=== PATIENT | male | born 1960 | race Caucasian/White ===

== ENCOUNTER 2021-09-28 20:09 | Inpatient (IN) | payer MEDICAID ==
[~2021-09-28] VITALS: Ht 180.3 cm; Wt 86.1 kg
[2021-09-28] MEDS ORDERED: normal saline 1000ml 1,000 ML IV ONE (20:40)
--- NOTE | 2021-09-28 20:42 | NUR ---
patient to ct scan
[2021-09-28 21:02] LABS: BASOPHILS % (AUTO) 0.7 % (0-1); EOSINOPHILS # (AUTO) 0.1 X10'3 (0-0.9); EOSINOPHILS % (AUTO) 2.7 % (0-6); HEMATOCRIT 34.2 % (42.0-52.0); HEMOGLOBIN 11.6 g/dl (14.0-17.9); LYMPHOCYTES # (AUTO) 1.9 X10'3 (1.1-4.8); LYMPHOCYTES % (AUTO) 38.3 % (21-51); MEAN CORPUSCULAR HEMOGLOBIN 30.4 PG (27.0-31.0); MEAN CORPUSCULAR HGB CONC 33.9 g/dL (33.0-36.5); MEAN CORPUSCULAR VOLUME 89.8 FL (78-98); MEAN PLATELET VOLUME 8.4 FL (7.4-10.4); MONOCYTES # (AUTO) 0.4 X10'3 (0-0.9); MONOCYTES % (AUTO) 7.8 % (2-12); NEUTROPHILS # (AUTO) 2.4 X10'3 (1.8-7.7); NEUTROPHILS % (AUTO) 50.5 % (42-75); PLATELET COUNT 142 X10'3 (140-440); RED CELL DISTRIBUTION WIDTH 15.5 % (11.5-14.5); WHITE BLOOD COUNT 4.8 X10'3 (4.5-11.0)
--- NOTE | 2021-09-28 21:06 | NUR ---
pt aox 1. pt easily follows simple commands but continues to sit up in bed, confused and unable to state birthday, event, day/time. pt reoriented and given blanket.
[2021-09-28 21:24] LABS: ALANINE AMINOTRANSFERASE 18 U/L (12-78); ALBUMIN 3.6 G/DL (3.4-5.0); ALBUMIN/GLOBULIN RATIO 1.4 (1.1-1.5); ALKALINE PHOSPHATASE 53 IU/L (46-116); ANION GAP 11 (8-16); ASPARTATE AMINO TRANSFERASE 16 U/L (10-37); BILIRUBIN,TOTAL 0.6 MG/DL (0.1-1.0); BLOOD UREA NITROGEN 15 MG/DL (7-18); BUN/CREATININE RATIO 17.6 (5.4-32.0); CALCIUM 8.5 MG/DL (8.5-10.1); CHLORIDE 105 MMOL/L (99-107); CREATININE 0.85 MG/DL (0.60-1.10); GLUCOSE 75 MG/DL (70-104); POTASSIUM 3.7 MMOL/L (3.5-5.1); SODIUM 139 MMOL/L (135-145); TOTAL CARBON DIOXIDE 22.6 MMOL/L (24-32); TOTAL PROTEIN 6.2 G/DL (6.4-8.2); eGFR > 90 ML/MIN
[2021-09-28 21:26] LABS: ETHANOL < 0.010 GM/DL (0.0-0.010)
--- NOTE | 2021-09-28 22:36 | NUR ---
PATIENT WAS TRANSFERRED TO OVERFLOW ,REPORT GIVEN TO THE NURSE BY SEISMIC PROSPECTING OBSERVER HELPER, PATIENT IN STABLE CONDITION AT THIS TIME
[2021-09-28] MEDS ORDERED: BENZ2TAB7 PO (23:10)
[2021-09-28] MEDS ORDERED: SERT-434 PO (23:10)
[2021-09-28] MEDS ORDERED: CLON0.1T2 PO (23:10)
[2021-09-28] MEDS ORDERED: HALO5TAB PO (23:10)
[2021-09-28] MEDS ORDERED: LAMO100T PO (23:10)
[2021-09-28] MEDS ORDERED: PROP40TA72 PO (23:10)
--- NOTE | 2021-09-28 23:14 | NUR ---
PATIENT ARRIVED ON THE UNIT IN WHEELCHAIR. PATIENT IS IN NO OBVIOUS DISTRESS. PATIENT IS BREATHING SPONTANOUSLY ON ROOM AIR. PATIENT APPEARS TO BE CONFUSED , HOWEVER PATIENT DENIES HAVING ANY SUICIDAL IDEATION THIS TIME
--- NOTE | 2021-09-29 04:10 | NUR ---
PATIENT UP AND ABOUT UNIT. HE APPEARS TO BE CONFUSED. PATIENT IS UNABLE TO GIVE US URINE DUE TO THIS MENTAL STATUS.
--- NOTE | 2021-09-29 05:53 | NUR ---
PATIENT IS IN BED RESTING IN NO OBVIOUS DISTRESS. OBSERVATION ONGOING
--- NOTE | 2021-09-29 06:30 | NUR ---
PT. CARE ASSUMED FROM OFF GOING NURSE JENARO ZAPIEN. PT. VISIBLE ON THE UNIT LYING IN BED NO DISTRESS NOTED. PT. PRESENTS CONFUSED AND REQUIRES REDIRECTING FROM STAFF. PT. ABLE TO FOLLOW SIMPLE INSTRUCTIONS. PT. SPEECH IS GARBLED AND VERY DIFFICULT TO UNDERSTAND. PT. ASSISTED TO A STANDING POSITION BY STAFF IN ATTEMPT TO OBTAIN URINE SAMPLE WITHOUT ANY SUCCESS. STAFF WILL CONTINUE TO MONITOR FOR SAFETY.
[2021-09-29] MEDS: benztropine 1mg tablet PO SCH ×2 (08:41→20:36)
[2021-09-29] MEDS: lamoTRIgine 100mg tablet PO SCH (08:41)
[2021-09-29] MEDS: sertraline 50mg tablet PO SCH ×2 (08:43→20:36)
[2021-09-29] MEDS: propranolol 40mg tablet PO SCH ×2 (09:58→20:36)
--- NOTE | 2021-09-29 11:45 | NUR ---
URINE FOR UA OBTAINED VIA STRIGHT CATH. SPECIMEN SENT TO THE LAB
[2021-09-29 11:57] LABS: CLARITY,URINE CLEAR (Clear); COLOR,URINE YELLOW (Yellow); GLUCOSE, URINE NEGATIVE (Neg); KETONES,URINE NEGATIVE (Neg); LEUKOCYTE ESTERASE ,URINE NEGATIVE (Neg); NITRITES, URINE NEGATIVE (Neg); OCCULT BLOOD,URINE NEGATIVE (Neg); PROTEIN,URINE NEGATIVE (Neg); UROBILINOGEN,URINE 0.2 E.U/dL (0.2-1.0)
[2021-09-29 11:59] LABS: UA COLLECTION TYPE CLN CATCH MIDSTREAM
[2021-09-29 12:00] LABS: URINE AMPHETAMINE SCREEN NEGATIVE (Neg); URINE BARBITUATE SCREEN NEGATIVE (Neg); URINE BENZODIAZEPINES SCREEN POSITIVE (Neg); URINE CANNABINOID SCREEN NEGATIVE (Neg); URINE COCAINE SCREEN NEGATIVE (Neg); URINE METHADONE SCREEN NEGATIVE (Neg); URINE OPIATE SCREEN NEGATIVE (Neg); URINE PHENCYCLIDINE SCREEN NEGATIVE (Neg)
--- NOTE | 2021-09-29 12:15 | NUR ---
SITTING ON EDGE OF BED EATING LUNCH.
--- NOTE | 2021-09-29 12:15 | NUR ---
PACKET FAXED TO [facility] [facility] FOR REVIEW.
--- NOTE | 2021-09-29 12:45 | NUR ---
PT. VISIBLE ON THE UNIT HAS PLACED HIMSELF ON ALL FOURS . PT. ON FLOOR PICKING AT THINGS ON THE FLOOR THAT ARE NOT THERE. PT. REQUIRES REDIRECTING
--- NOTE | 2021-09-29 13:09 | NUR ---
BREAKING PRIMARY NURSE AT [facility] EVAL AT BEDSIDE .
[2021-09-29] MEDS ORDERED: acetaminophen 325mg tablet PO PRN ×2 (16:40)
[2021-09-29] MEDS ORDERED: mag hydrox/Alum hydrox/simeth 30ml oral suspension PO PRN (16:40)
[2021-09-29] MEDS ORDERED: loperamide 2mg capsule PO PRN (16:40)
--- NOTE | 2021-09-29 16:43 | NUR ---
PT. TRANSFERRED TO [facility]. PT. PERSONAL BELONGINGS AND ORIGINAL 5150 GIVEN TO TRANSPORTER. PT. ESCORTED OFF THE UNIT WITH SECURITY.
[2021-09-29 16:45] VITALS: BP 107/75
[2021-09-29] MEDS ORDERED: NICOTINE POLACRILEX 2 MG LOZENGE BC PRN (17:30)
--- NOTE | 2021-09-29 18:15 | NUR ---
ADMIT NOTE: Pt transferred from ER overflow to [facility] at 1645. He ambulated onto the unit accompanied by PCT and security. Pt is confused though cooperative. Pt showered with the assistance of RN Jim. Pt has a large, thick callous-like or corn-like area on his right lateral foot pad. Pt has an order for a wound consult Pt is on a 5150 for GD. He was brought in by EMS on 09/28/21. His neighbors called 911 after hearing concerning noises that sounded like pt fell down the stairs. Pt was found crawling around on all fours, disheveled with food and milk in the house. He was confused. Pt lives at [facility] alone. Pt has a rehabilitation case coordinator at [facility] named Megan who reported to [facility] that pt has a Hx of confusion that resolves with medication though pt gets confused as to how and when to take his medications. His meds were last filled on 09/20/21. He had Invega Sustenna 234 mg filled on 09/15/21 by a different provider. Uncertain whether or not there was a provider/medication change. Pt reports he just moved her recently in April of last year from the [facility]. Pt is edentulous and his mouth hangs open asymmetrically. Pt is only oriented to self. Pt was unable to participate in the [place] suicide risk assessment due to confusion. He was unable to process/understand to answer the questions. Per ER overflow RN report, pt was incontinent of urine last night. Pt is in a pull-up brief and may need prompts to use the bathroom. Pt has a Hx of schizophrenia.
[2021-09-29 19:00] VITALS: BP 122/84
[2021-09-29] MEDS: haloperidol 5mg tablet PO SCH (20:36)
[2021-09-29] MEDS ORDERED: cloNIDine 0.1 mg tablet PO SCH (21:00)
--- NOTE | 2021-09-29 21:00 | NUR ---
Nursing Progress Note: Legal hold: 5150 Client on Involuntary status for GD. Report received from RUPALI Velez with use of SBAR. Why are they here? ADMIT NOTE: Pt transferred from ER overflow to [facility] at 1645. He ambulated onto the unit accompanied by PCT and security. Pt is confused though cooperative. Pt showered with the assistance of RUPALI Fernandez. Pt has a large, thick callous-like or corn-like area on his right lateral foot pad. Pt has an order for a wound consult Pt is on a 5150 for GD. He was brought in by EMS on 09/28/21. His neighbors called 911 after hearing concerning noises that sounded like patient fell down the stairs. Pt was found crawling around on all fours, disheveled with food and milk in the house. He was confused. Pt lives at [facility] alone. Pt has a case finisher at [facility] named Megan who reported to [facility] that patient has a history of confusion that resolves with medication though patient gets confused as to how and when to take his medications. His meds were last filled on 09/20/21. He had Invega Sustenna 234 mg filled on 09/15/21 by a different provider. Uncertain whether or not there was a provider/medication change. Pt reports he just moved her recently in April of last year from the [facility]. Pt is edentulous and his mouth hangs open asymmetrically. Pt is only oriented to self. Pt was unable to participate in the [place] suicide risk assessment due to confusion. He was unable to process/understand to answer the questions. Per ER overflow RN report, patient was incontinent of urine last night. Pt is in a pull-up brief and may need prompts to use the bathroom. Pt has a history of schizophrenia. Assessment Patient was observed ambulating the hallway and in his room following shift change. He exhibits a blank stare with his mouth wide open .He looks disheveled. Patient answers direct questions only. He mumbles when he speaks and is confused. Patient responds in a sluggish manner but is able to accept direction. Patient continues to exhibit confusion at bedtime. He attempts to make another patients bed, he turns lights on and off in his room with a roommate present. On consult with the wind turbine installer we will attempt to move this patient to another room. S/I, H/I: Pt denies. He is confused. A/VH: None noted. Sleep: Will tally at 0500 hours. ADL's: Independent, requires prompting. Group attendance: No group on marketing support coordinator. Were meds taken: Yes, patient is medication compliant. Any med S/E: None reported or noted. Mental Status Exam Appearance: Disheveled looking order looking male wearing unit attire. Eye contact: Fair. Behavior: Confused, friendly. Speech: Quiet, mumbles, hard to understand. Mood: Patient looks relaxed, he ambulates in and out of room. Affect: Flat. Thought process: Confused. Thought Content: Poverty of thought. Insight: Poor. Judgment: Poor. Interventions PRN's used: Trazadone. Therapeutic interventions: 1:1 assessment, establishment of rapport, therapeutic conversation, active listening, medication administration/education/monitoring, behavior monitoring and intervention as needed; distraction, redirection, reality orientation, limiit setting, show of support, positive reinforcement, and Q 15 minute safety checks. Restraints/seclusion/emergency medication: Justification of Continued Inpatient Treatment: Pt is in need of crisis interruption and stabilization, with medication adjustment and monitoring in a safe and therapeutic environment. Pt is gravely disabled.
[2021-09-30 07:38] VITALS: BP 118/67
[2021-09-30 08:14] LABS: CHOL/HDL RATIO 5.7 (0.00-4.99); CHOLESTEROL 171 MG/DL (0-200); HDL CHOLESTEROL 30 MG/DL (35-60); LDL CHOLESTEROL 103 MG/DL (50-100); TRIGLYCERIDES 107 MG/DL (20-135)
[2021-09-30] MEDS: benztropine 1mg tablet PO SCH ×2 (08:15→21:06)
[2021-09-30] MEDS: propranolol 40mg tablet PO SCH ×2 (08:15→20:00)
[2021-09-30] MEDS: sertraline 50mg tablet PO SCH ×2 (08:15→21:07)
[2021-09-30] MEDS: lamoTRIgine 100mg tablet PO SCH (08:16)
[2021-09-30] MEDS: nicotine 14mg patch - 24hr TD SCH (08:17)
[2021-09-30 08:36] LABS: HEMOGLOBIN A1C 5.9 % (4.5-6.2)
--- NOTE | 2021-09-30 13:07 | NUR ---
Nursing Progress Note: Legal hold: 5150 Client on Involuntary status for GD. Report received from Jess ZAPIEN with use of SBAR. Why are they here? ADMIT NOTE: Pt transferred from ER overflow to [facility] at 1645. He ambulated onto the unit accompanied by PCT and security. Pt is confused though cooperative. Pt showered with the assistance of RN Jim. Pt has a large, thick callous-like or corn-like area on his right lateral foot pad. Pt has an order for a wound consult Pt is on a 5150 for GD. He was brought in by EMS on 09/28/21. His neighbors called 911 after hearing concerning noises that sounded like patient fell down the stairs. Pt was found crawling around on all fours, disheveled with food and milk in the house. He was confused. Pt lives at [facility] alone. Pt has a lining caser at [facility] named Megan who reported to [facility] that patient has a history of confusion that resolves with medication though patient gets confused as to how and when to take his medications. His meds were last filled on 09/20/21. He had Invega Sustenna 234 mg filled on 09/15/21 by a different provider. Uncertain whether or not there was a provider/medication change. Pt reports he just moved her recently in April of last year from the [facility]. Pt is edentulous and his mouth hangs open asymmetrically. Pt is only oriented to self. Pt was unable to participate in the [place] suicide risk assessment due to confusion. He was unable to process/understand to answer the questions. Per ER overflow RN report, patient was incontinent of urine last night. Pt is in a pull-up brief and may need prompts to use the bathroom. Pt has a history of schizophrenia. Assessment What they did today: Pt awake in his room. Pt continues to be confused and disoriented. Pt confused and tried to go out the alarmed, locked door x 3. Pt needing to be reminded where his door/room is. Pt follows verbal instructions, but his speech is disorganized and not related to any thing spoken to him. Pt assisted with ADL's and appears dishevled. S/I, H/I: Pt denies. He is confused. A/VH: None noted. Sleep: brief napping during the day. ADL's: Independent, requires prompting. Group attendance: No group on maintenance supervisor 2nd shift. Were meds taken: Yes, patient is medication compliant. Any med S/E: None reported or noted. Mental Status Exam Appearance: Disheveled looking order looking male wearing unit attire. Eye contact: Fair. Behavior: Confused, friendly. Speech: Quiet, mumbles, hard to understand. Mood: Patient looks relaxed, he ambulates in and out of room. Affect: Flat. Thought process: Confused. Thought Content: Poverty of thought. Insight: Poor. Judgment: Poor. Interventions PRN's used: Therapeutic interventions: 1:1 assessment, establishment of rapport, therapeutic conversation, active listening, medication administration/education/monitoring, behavior monitoring and intervention as needed; distraction, redirection, reality orientation, limiit setting, show of support, positive reinforcement, and Q 15 minute safety checks. Restraints/seclusion/emergency medication: Justification of Continued Inpatient Treatment: Pt is in need of crisis interruption and stabilization, with medication adjustment and monitoring in a safe and therapeutic environment. Pt is gravely disabled. Addendum: 09/30/21 at 1540 by Yassine Solorzano RN Pt seen by wound care earlier, see wound care note. Pt tried to urinate and ended up peeing all over the room and himself and needed staff to clean him up.
--- NOTE | 2021-09-30 13:45 | NUR ---
WOUND INFECTION EDUCATION PROVIDED BY WOUND CARE 1. Patient instructed to call their primary doctor, or go the ED immediately if any of the following symptoms occur: * Increased pain in wound * Increase in drainage from the wound * Redness in the skin surrounding the wound * Warmth in the skin surrounding the wound * Bleeding from the wound * Temperature of 101 or greater 2. If any of these occur while in the hospital tell a nurse immediately. Addendum: 09/30/21 at 1345 by Toshia Potter RN Amended: Links added.
[2021-09-30 19:00] VITALS: BP 80/60
--- NOTE | 2021-09-30 19:20 | NUR ---
The unit tech advised this insurance writer that the patient had a low blood pressure. On my evaluation patients sitting blood pressure is 84/60 with a pulse of 82. The patient was then placed in a standing position, his blood pressure decreased to 64/38, the pulse did not increase. Patient was pale, w/d, and dizzy with standing. The charge lpn will contact the hospitalist for IV bolus orders.
[2021-09-30] MEDS ORDERED: normal saline 1000ml 1,000 ML IV ONE ×2 (19:45→21:00)
[2021-09-30] MEDS: mineral oil/petrolatum, white cream 113gm jar TP SCH (20:00)
--- NOTE | 2021-09-30 20:00 | NUR ---
Patients Inderol held due to hypotension.
--- NOTE | 2021-09-30 20:09 | NUR ---
An IV NaCl was established. The patient is supine in bed. A one litre bolus is being administered via pressure bag. Vital signs will be re-evaluated after fluid bolus. Patient is resting quietly with warm blankets in place.
[2021-09-30] MEDS: FLUoxetine 10mg capsule PO SCH ×2 (20:25→21:07)
[2021-09-30] MEDS: haloperidol 5mg tablet PO SCH (21:07)
[2021-09-30 23:00] VITALS: BP 114/80
--- NOTE | 2021-09-30 23:00 | NUR ---
Two litres of NaCl were given IV. The IV was DC'd intact. The patient is now normotensive. Patient has retired to sleep. No labs ordered by Dr. Mcclain.
--- NOTE | 2021-10-01 01:22 | NUR ---
Nursing Progress Note: Legal hold: 5150 Client on Involuntary status for GD. Report received from RUPALI Velez with use of SBAR. Why patient is here: ADMIT NOTE: Pt transferred from ER overflow to [facility] at 1645. He ambulated onto the unit accompanied by PCT and security. Pt is confused though cooperative. Pt showered with the assistance of RUPALI Fernandez. Pt has a large, thick callous-like or corn-like area on his right lateral foot pad. Pt has an order for a wound consult Pt is on a 5150 for GD. He was brought in by EMS on 09/28/21. His neighbors called 911 after hearing concerning noises that sounded like patient fell down the stairs. Pt was found crawling around on all fours, disheveled with food and milk in the house. He was confused. Pt lives at [facility] alone. Pt has a test case developer at [facility] named Megan who reported to [facility] that patient has a history of confusion that resolves with medication though patient gets confused as to how and when to take his medications. His meds were last filled on 09/20/21. He had Invega Sustenna 234 mg filled on 09/15/21 by a different provider. Uncertain whether or not there was a provider/medication change. Pt reports he just moved her recently in April of last year from the [facility]. Pt is edentulous and his mouth hangs open asymmetrically. Pt is only oriented to self. Pt was unable to participate in the [place] suicide risk assessment due to confusion. He was unable to process/understand to answer the questions. Per ER overflow RN report, patient was incontinent of urine last night. Pt is in a pull-up brief and may need prompts to use the bathroom. Pt has a history of schizophrenia. Assessment What happened this shift: Patient is observed in the community room following shift change. Patient remains confused and disoriented. This is unchanged from his admit. When vital signs were taken the patient was documented to be hypotensive while sitting with a normal pulse rate. Upon standing the patient exhibits orthostatic hypotension with his B/P 69/38 his pulse in the 80's regardless of position. Dr. Mcclain the Hospitalist was contacted twice. Orders were for fluid IV bolus of Nacl to a total of two liters. Following the IV fluid bolus this patient became normotensive and his IV was discontinued. The patient retired to bed and slept a few hours. The patient then awoke and wandered into another patients room. The patient was directed back to his room and he returned to sleep. S/I, H/I: Pt denies. He is confused. A/VH: None noted. Sleep: Intermittent, will tally at 0500 hours. ADL's: Independent, requires prompting. Patient wears a brief under scrub pants. Group attendance: No group on shift commander. Were meds taken: Yes, patient is medication compliant. Any med S/E: None reported or noted. Mental Status Exam Appearance: Disheveled looking wearing unit attire. Eye contact: Fair. Behavior: Confused, friendly. Speech: Quiet, mumbles, hard to understand. Mood: Patient looks relaxed, he ambulates in and out of room. Affect: Flat. Thought process: Confused. Thought Content: Poverty of thought. Insight: Poor. Judgment: Poor. Interventions PRN's used: Therapeutic interventions: 1:1 assessment, establishment of rapport, therapeutic conversation, active listening, medication administration/education/monitoring, behavior monitoring and intervention as needed; distraction, redirection, reality orientation, limiit setting, show of support, positive reinforcement, and Q 15 minute safety checks. Restraints/seclusion/emergency medication: Justification of Continued Inpatient Treatment: Pt is in need of crisis interruption and stabilization, with medication adjustment and monitoring in a safe and therapeutic environment. Pt is gravely disabled.
[2021-10-01 07:08] VITALS: BP 108/68
[2021-10-01] MEDS: lamoTRIgine 100mg tablet PO SCH (08:25)
[2021-10-01] MEDS: benztropine 1mg tablet PO SCH ×2 (08:25→20:05)
[2021-10-01] MEDS: sertraline 50mg tablet PO SCH ×2 (08:25→20:05)
[2021-10-01] MEDS: propranolol 40mg tablet PO SCH (08:25)
[2021-10-01] MEDS: nicotine 14mg patch - 24hr TD SCH (08:41)
[2021-10-01] MEDS: mineral oil/petrolatum, white cream 113gm jar TP SCH ×2 (08:42→20:05)
--- NOTE | 2021-10-01 17:58 | NUR ---
Nursing Progress Note: Legal hold: 5150 Client on Involuntary status for GD Report received from RN with use of SBAR Why patient is here: Pt is on a 5150 for GD. He was brought in by EMS on 09/28/21. His neighbors called 911 after hearing concerning noises that sounded like patient fell down the stairs. Pt was found crawling around on all fours, disheveled with food and milk in the house. He was confused. Pt lives at [facility] alone. Pt has a ed case manager at [facility] named Megan who reported to [facility] that patient has a history of confusion that resolves with medication though patient gets confused as to how and when to take his medications. His meds were last filled on 09/20/21. He had Invega Sustenna 234 mg filled on 09/15/21 by a different provider. Uncertain whether or not there was a provider/medication change. Pt reports he just moved her recently in April of last year from the [facility]. Pt is edentulous and his mouth hangs open asymmetrically. Pt is only oriented to self. Pt has a history of schizophrenia. Assessment What happened this shift: Received Pt in bed sleeping w/o distress at the beginning of the shift. Pt woke and was cooperative with vitals. Pt appears to have decreased hearing and follows directions better when this RN spoke loudly. Pt is confused at times and needed to be redirected out of other Pt rooms. Spent most of day in day room watching movies. Not interactive with other Pts or staff, but will engage if approached. S/I, H/I: Pt denies A/VH: Pt denies Sleep: Napped in AM ADL's: Independent, requires prompting Group attendance: NA Were meds taken: Yes Any med S/E: None reported or noted Mental Status Exam Appearance: Disheveled looking wearing jeans and green top Eye contact: Fair Behavior: Confused, friendly Speech: Quiet, mumbles Mood: Appears euthymic Affect: Flat Thought process: Confused Thought Content: Poverty of thought Insight: Poor Judgment: Poor Interventions PRN's used: None Therapeutic interventions: 1:1 assessment, establishment of rapport, therapeutic conversation, active listening, medication administration/education/monitoring, behavior monitoring and intervention as needed; distraction, redirection, reality orientation, limit setting, show of support, positive reinforcement, and Q 15 minute safety checks. Restraints/seclusion/emergency medication: Justification of Continued Inpatient Treatment: Pt is in need of crisis interruption and stabilization, with medication adjustment and monitoring in a safe and therapeutic environment. Pt is gravely disabled.
[2021-10-01 19:00] VITALS: BP 97/60
[2021-10-01] MEDS: haloperidol 5mg tablet PO SCH (20:05)
--- NOTE | 2021-10-01 22:15 | NUR ---
Nursing Progress Note: Legal hold: 5150 Client on Involuntary status for GD Report received from RN with use of SBAR Why patient is here: Pt is on a 5150 for GD. He was brought in by EMS on 09/28/21. His neighbors called 911 after hearing concerning noises that sounded like patient fell down the stairs. Pt was found crawling around on all fours, disheveled with food and milk in the house. He was confused. Pt lives at [facility] alone. Pt has a director case at [facility] named Megan who reported to [facility] that patient has a history of confusion that resolves with medication though patient gets confused as to how and when to take his medications. His meds were last filled on 09/20/21. He had Invega Sustenna 234 mg filled on 09/15/21 by a different provider. Uncertain whether or not there was a provider/medication change. Pt reports he just moved her recently in April of last year from the [facility]. Pt is edentulous and his mouth hangs open asymmetrically. Pt is only oriented to self. Pt has a history of schizophrenia. Assessment What happened this shift: Pt laying in bed at shift change. Pt mumbles in a lone tone voice. Pt does not understand most communication but is easily redirected and polite. Brought pt a snack and juice. Pt took medications with help w/o complications. Held pts Propranolol. Pt BP 97/60. CRN D/C'd medication until further notice. Pt went to bed after snack and medication pass. S/I, H/I: unable to determine A/VH: unable to determine Sleep:See sleep hours ADL's: Independent, requires prompting Group attendance: NA Were meds taken: Yes Any med S/E: None reported or noted Mental Status Exam Appearance: Disheveled looking wearing jeans and green top Eye contact: Fair Behavior: Confused, friendly Speech: Quiet, mumbles Mood: Appears euthymic Affect: Flat Thought process: Confused Thought Content: Poverty of thought Insight: Poor Judgment: Poor Interventions PRN's used: None Therapeutic interventions: 1:1 assessment, establishment of rapport, therapeutic conversation, active listening, medication administration/education/monitoring, behavior monitoring and intervention as needed; distraction, redirection, reality orientation, limit setting, show of support, positive reinforcement, and Q 15 minute safety checks. Restraints/seclusion/emergency medication: Justification of Continued Inpatient Treatment: Pt is in need of crisis interruption and stabilization, with medication adjustment and monitoring in a safe and therapeutic environment. Pt is gravely disabled.
[2021-10-02 07:30] VITALS: BP 118/71
[2021-10-02] MEDS: benztropine 1mg tablet PO SCH ×2 (07:38→20:08)
[2021-10-02] MEDS: lamoTRIgine 100mg tablet PO SCH (07:38)
[2021-10-02] MEDS: sertraline 50mg tablet PO SCH ×2 (07:38→20:08)
[2021-10-02] MEDS: nicotine 14mg patch - 24hr TD SCH (07:44)
[2021-10-02] MEDS: mineral oil/petrolatum, white cream 113gm jar TP SCH ×2 (08:00→20:56)
[2021-10-02 08:21] VITALS: BP 115/71
--- NOTE | 2021-10-02 18:07 | NUR ---
Nursing Progress Note: Legal hold: 5150 Client on Involuntary status for GD Report received from RUPALI Peck with use of SBAR Why patient is here: Pt is on a 5150 for GD. He was brought in by EMS on 09/28/21. His neighbors called 911 after hearing concerning noises that sounded like patient fell down the stairs. Pt was found crawling around on all fours, disheveled with food and milk in the house. He was confused. Pt lives at [facility] alone. Pt has a rn case management at [facility] named Megan who reported to [facility] that patient has a history of confusion that resolves with medication though patient gets confused as to how and when to take his medications. His meds were last filled on 09/20/21. He had Invega Sustenna 234 mg filled on 09/15/21 by a different provider. Uncertain whether or not there was a provider/medication change. Pt reports he just moved her recently in April of last year from the [facility]. Pt is edentulous and his mouth hangs open asymmetrically. Pt is only oriented to self. Pt has a history of schizophrenia. Assessment What happened this shift: Received patient while he was sleeping in his bed. Difficult to arouse to wake up for breakfast. After 5 attempts patient sat up alongside his bed and was unable to visually focus. Retrieved the patients glasses and patient had difficulty following direction to go to the bathroom to void, then I would walk with him to the Community Room for breakfast. Patient did not follow directions to go to the bathroom. Patient had depends on and they were soaking wet. Changed patients Depends and scrub bottoms and walked with the patient to the dining room. Patient has difficulty throughout the day comprehending any verbal communication, and looks like he is confused and does not understand the questions. Patient was ambulated back. Unable to complete the 1:1 Patient Interview with the patient as he appeared confused and was difficult to understand with his garbled speech. Wound Care provided to the wound on his right foot. Soaked his right foot callous in warm H20, Pat dry, applied Eucerin and applied a clean pair of socks per MD orders. Patient was toileted again approximately every hour. When directed to urinate in the toilet the patient did not appear to understand the directive to go to the bathroom. Asked patient to stand up and go to the bathroom, and after multiple attempts saying the same thing over and over, the patient went to the bathroom and expelled a large amount of urine. Informed the patient to use the toilet each time he needs to urinate. Follow up provided at 1600, and patients attends were still dry. Patient directed to use the toilet and went in and voided in the toilet, but must be self directed each time he needs to use the toilet. S/I, H/I: unable to determine A/VH: unable to determine Sleep: See Sleep Assessment ADL's: Patient requires prompting for all activities. Patient is not able to self direct. Group attendance: No Group Meeting held today. Were meds taken: Yes, without hesitation. Any med S/E: None reported or noted Mental Status Exam Appearance: Tall male with long combed over hair and ritter parada with green unit scrubs. Eye contact: Fair Behavior: Confused Speech: Does not initiate a conversation. Mood: Appears euthymic Affect: Flat, non verbal Thought process: Confused Thought Content: Poverty of thought Insight: Poor Judgment: Poor Interventions PRN's used: None Therapeutic interventions: 1:1 assessment, establishment of rapport, therapeutic conversation, active listening, medication administration/education/monitoring, behavior monitoring and intervention as needed; distraction, redirection, reality orientation, limit setting, show of support, positive reinforcement, and Q 15 minute safety checks. Restraints/seclusion/emergency medication: Justification of Continued Inpatient Treatment: Pt is in need of crisis interruption and stabilization, with medication adjustment and monitoring in a safe and therapeutic environment. Pt is gravely disabled.
[2021-10-02] MEDS: haloperidol 5mg tablet PO SCH (20:08)
--- NOTE | 2021-10-02 23:57 | NUR ---
Nursing Progress Note: Legal hold: 5150 Client on Involuntary status for GD Report received from RN with use of SBAR Why patient is here: Pt is on a 5150 for GD. He was brought in by EMS on 09/28/21. His neighbors called 911 after hearing concerning noises that sounded like patient fell down the stairs. Pt was found crawling around on all fours, disheveled with food and milk in the house. He was confused. Pt lives at [facility] alone. Pt has a shelter case manager at [facility] named Megan who reported to [facility] that patient has a history of confusion that resolves with medication though patient gets confused as to how and when to take his medications. His meds were last filled on 09/20/21. He had Invega Sustenna 234 mg filled on 09/15/21 by a different provider. Uncertain whether or not there was a provider/medication change. Pt reports he just moved her recently in April of last year from the [facility]. Pt is edentulous and his mouth hangs open asymmetrically. Pt is only oriented to self. Pt has a history of schizophrenia. Assessment What happened this shift: Pt in community room at shift change. Pt was not speaking to cohorts but was watching TV intently. Pt answered questions with yes or no answer and is difficult to understand. Pt able to use the bathroom when told to go. Pt ate a snack at snack time, and took evening meds. Pt was sitting out in hallway when Russ BLEDSOE came in and talked with pt, she advised that we work the knots out of his hair with a brush. Due to pts knot size and lack of staff this shift with 2 admits we were unable to shower pt. Patient will need to be showered to fix hair.Pt did answer questions after snack and stated that he would like to go home, he did question meds at med time and stated, "awww, shucks! I'd better take them then" when reminding pt how he wound up here on the unit. Pt foot cleaned and Eucerin lotion applied to calloused area. Pt went to bed shortly after. Bathroom light left on so pt can see at night to use restroom. S/I, H/I: unable to determine A/VH: unable to determine Sleep: See Sleep Assessment ADL's: Patient requires prompting for all activities. Patient is not able to self direct. Group attendance: No Group in evening Were meds taken: Yes, without hesitation. Any med S/E: None reported or noted Mental Status Exam Appearance: Tall male with long combed over hair and ritter parada with green unit scrubs. Eye contact: Fair Behavior: Confused Speech: Does not initiate a conversation. Mood: Appears euthymic Affect: Flat, non verbal Thought process: Confused Thought Content: Poverty of thought Insight: Poor Judgment: Poor Interventions PRN's used: None Therapeutic interventions: 1:1 assessment, establishment of rapport, therapeutic conversation, active listening, medication administration/education/monitoring, behavior monitoring and intervention as needed; distraction, redirection, reality orientation, limit setting, show of support, positive reinforcement, and Q 15 minute safety checks. Restraints/seclusion/emergency medication: Justification of Continued Inpatient Treatment: Pt is in need of crisis interruption and stabilization, with medication adjustment and monitoring in a safe and therapeutic environment. Pt is gravely disabled.
--- NOTE | 2021-10-03 03:14 | NUR ---
Pt woke up and tried to enter another pts room. Pt redirected to bathroom in his own room. Pt allowed me to check brief and was wet. Pt cleaned up and new brief provided and went to bed.
[2021-10-03 07:25] VITALS: BP 127/73
[2021-10-03] MEDS: nicotine 14mg patch - 24hr TD SCH (07:47)
[2021-10-03] MEDS: benztropine 1mg tablet PO SCH ×2 (07:47→20:16)
[2021-10-03] MEDS: sertraline 50mg tablet PO SCH ×2 (07:48→20:16)
[2021-10-03] MEDS: lamoTRIgine 100mg tablet PO SCH (07:48)
[2021-10-03] MEDS: mineral oil/petrolatum, white cream 113gm jar TP SCH ×2 (08:00→20:16)
--- NOTE | 2021-10-03 11:38 | NUR ---
Initial: Pt admitted w/ AMS, dx psychosis per EMR. Pt currently on mechanical soft diet, eating approximately 86% average meals and closely meeting needs. LBM 09/28, pt apparently confused and states he is unsure of LBM, will receive MoM today per RN phone discussion. No nutrition intervention implemented at this time. Will continue to follow. Recommendations: 1. Continue mechanical soft diet 2. Bowel care per rx 3. Weekly wt Addendum: 10/03/21 at 1138 by Opal Elmore Flat Machine Cutter RD Amended: Links added. Addendum: 10/03/21 at [address] I have reviewed assessment by audit intern
[2021-10-03] MEDS: magnesium hydroxide 30ml (MOM) UD suspension PO PRN (12:36)
--- NOTE | 2021-10-03 17:46 | NUR ---
Nursing Progress Note: Legal hold: 5150 Client on Involuntary status for GD Report received from RUPALI Coronado with use of SBAR Why patient is here: Pt is on a 5150 for GD. He was brought in by EMS on 09/28/21. His neighbors called 911 after hearing concerning noises that sounded like patient fell down the stairs. Pt was found crawling around on all fours, disheveled with food and milk in the house. He was confused. Pt lives at [facility] alone. Pt has a spring encaser at [facility] named Megan who reported to [facility] that patient has a history of confusion that resolves with medication though patient gets confused as to how and when to take his medications. His meds were last filled on 09/20/21. He had Invega-Sustenna 234 mg filled on 09/15/21 by a different provider. Uncertain whether or not there was a provider/medication change. Pt reports he just moved her recently in April of last year from the [facility]. Pt is edentulous and his mouth hangs open asymmetrically. Pt is only oriented to self. Pt has a history of schizophrenia. Assessment What happened this shift: Received patient while he was standing in the hallway waiting for breakfast. Spoke to patient asking questions regarding his location, year and time. Patient was only oriented and responded to his name. Patient looks very confused when I am speaking to him. Difficult to understand if patient is having difficulty hearing along with being confused. Patient assessment completed. Patient was unable to answer interview questions. Patients only task he is able to do at this time is feed himself his meals. Patient got in line for snacks and was coached to go to the dining room for lunch. Patients last bowel movement is recorded as 09/28/21, so patient was given milk of magnesia just before lunch. Patient is wearing Depends in case of incontinence. Will continue to monitor patient closely. S/I, H/I: unable to determine A/VH: unable to determine Sleep: 5.25 ADL's: Patient requires prompting for all activities. Patient is not able to self-direct. Group attendance: No Group Meeting held this morning. Patient did not attend the afternoon Group Meeting. Were meds taken: Yes, without hesitation. Any med S/E: None reported or noted Mental Status Exam Appearance: Tall male with long combed over hair and ritter parada with green unit scrubs. Eye contact: Fair Behavior: Confused Speech: Does not initiate a conversation. Mood: Appears euthymic Affect: Flat, non verbal unless he is answering our questions. Thought process: Confused Thought Content: Poverty of thought Insight: Poor Judgment: Poor Interventions PRN's used: Milk of Magnesia. Therapeutic interventions: 1:1 assessment, establishment of rapport, therapeutic conversation, active listening, medication administration/education/monitoring, behavior monitoring and intervention as needed; distraction, redirection, reality orientation, limit setting, show of support, positive reinforcement, and Q 15 minute safety checks. Restraints/seclusion/emergency medication: Justification of Continued Inpatient Treatment: Pt is in need of crisis interruption and stabilization, with medication adjustment and monitoring in a safe and therapeutic environment. Pt is gravely disabled.
[2021-10-03 19:00] VITALS: BP 109/67
[2021-10-03] MEDS: haloperidol 5mg tablet PO SCH (20:16)
--- NOTE | 2021-10-04 04:31 | NUR ---
Nursing Progress Note: Legal hold: 5250 Client on involuntary status for GD Report received from RUPALI Velez with use of SBAR Why patient is here: Pt is on a 5150 for GD. He was brought in by EMS on 09/28/21. His neighbors called 911 after hearing concerning noises that sounded like patient fell down the stairs. Pt was found crawling around on all fours, disheveled with food and milk in the house. He was confused. Pt lives at [facility] alone. Pt has a case manager specialist at [facility] named Megan who reported to [facility] that patient has a history of confusion that resolves with medication though patient gets confused as to how and when to take his medications. His meds were last filled on 09/20/21. He had Invega Sustenna 234 mg filled on 09/15/21 by a different provider. Uncertain whether or not there was a provider/medication change. Pt reports he just moved her recently in April of last year from the [facility]. Pt is edentulous and his mouth hangs open asymmetrically. Pt is only oriented to self. Pt has a history of schizophrenia. Assessment What happened this shift: Patient laying in bed awake at the beginning of shift. Pleasant and cooperative with care; compliant with medication and foot care. Feet appear to be healing well. Nicotine patch removed/discarded by race and sports book writer. Unable to assess MH symptoms as patient continues to appear confused by the question and difficult to understand at times. Analysis Lead asked him about BM/constipation and he responded, "I'm okay with it though." Patient briefly participated in HS snack and returned back to bed; observed sleeping and does not appear to be having difficulty. S/I, H/I: Unable to assess A/VH: Unable to assess Sleep: Refer to sleep assessment ADL's: Requires prompting Group attendance: NA Were meds taken: Yes Any med S/E: None reported or observed Mental Status Exam Appearance: Neat, appropriately dressed in green unit attire Eye contact: Fair Behavior: Pleasant and cooperative, isolative, confused Speech: Slurred, quiet, minimal Mood: Fatigued Affect: Flat Thought process: Poverty of thought, confused Thought Content: Poverty of thought Insight: Poor Judgment: Poor Interventions PRN's used: None Therapeutic interventions: 1:1 assessment, establishment of rapport, therapeutic conversation, active listening, medication administration/education/monitoring, behavior monitoring and intervention as needed; distraction, redirection, reality orientation, limit setting, show of support, positive reinforcement, and Q 15 minute safety checks. Restraints/seclusion/emergency medication: NA Justification of Continued Inpatient Treatment: Pt is in need of crisis interruption and stabilization, with medication adjustment and monitoring in a safe and therapeutic environment. Pt is gravely disabled.
[2021-10-04 07:00] VITALS: BP 112/67
[2021-10-04] MEDS: nicotine 14mg patch - 24hr TD SCH (08:56)
[2021-10-04] MEDS: lamoTRIgine 100mg tablet PO SCH (08:56)
[2021-10-04] MEDS: benztropine 1mg tablet PO SCH ×2 (08:56→20:39)
[2021-10-04] MEDS: sertraline 50mg tablet PO SCH ×2 (08:56→20:40)
[2021-10-04] MEDS: mineral oil/petrolatum, white cream 113gm jar TP SCH ×2 (08:57→20:40)
--- NOTE | 2021-10-04 15:26 | NUR ---
WOUND INFECTION EDUCATION PROVIDED BY WOUND CARE 1. Patient instructed to call their primary doctor, or go the ED immediately if any of the following symptoms occur: * Increased pain in wound * Increase in drainage from the wound * Redness in the skin surrounding the wound * Warmth in the skin surrounding the wound * Bleeding from the wound * Temperature of 101 or greater 2. If any of these occur while in the hospital tell a nurse immediately. Addendum: 10/04/21 at 1526 by Toshia Potter RN Amended: Links added.
--- NOTE | 2021-10-04 17:14 | NUR ---
Nursing Progress Note: Legal hold: 5150 Client on Involuntary status for GD Report received from RUPALI Coronado with use of SBAR Why patient is here: Pt is on a 5150 for GD. He was brought in by EMS on 09/28/21. His neighbors called 911 after hearing concerning noises that sounded like patient fell down the stairs. Pt was found crawling around on all fours, disheveled with food and milk in the house. He was confused. Pt lives at [facility] alone. Pt has a case filler at [facility] named Megan who reported to [facility] that patient has a history of confusion that resolves with medication though patient gets confused as to how and when to take his medications. His meds were last filled on 09/20/21. He had Invega-Sustenna 234 mg filled on 09/15/21 by a different provider. Uncertain whether or not there was a provider/medication change. Pt reports he just moved her recently in April of last year from the [facility]. Pt is edentulous and his mouth hangs open asymmetrically. Pt is only oriented to self. Pt has a history of schizophrenia. Assessment What happened this shift: Patient was asleep at change of shift and up for meals. Patient otherwise was always sleeping in his bed. It was difficulty to understand patient and sometimes patient did not understand RN. Patient denies suicidal/homicidal ideation. Patient couldn't understand when RN asking patient about hearing voices or seeing things. Patient did say after RN asked about hallucinations: "I get confused at times and that makes me frustrated." That was the most I've heard patient speak. RN reassured patient that was are here to help him. S/I, H/I: denies A/VH: denies Sleep: slept most of the day except meals. ADL's: Patient requires prompting Group attendance: No Were meds taken: Yes Any med S/E: None reported or noted Mental Status Exam Appearance: Tall male with long combed over hair and ritter parada with green unit scrubs. Eye contact: Fair Behavior: isolative, confused Speech: Does not initiate a conversation. Mood: Depressed Affect: Flat Thought process: Confused Thought Content: Frustrated when he is confused Insight: Poor Judgment: Poor Interventions PRN's used: None Therapeutic interventions: 1:1 assessment, establishment of rapport, therapeutic conversation, active listening, medication administration/education/monitoring, behavior monitoring and intervention as needed; distraction, redirection, reality orientation, limit setting, show of support, positive reinforcement, and Q 15 minute safety checks. Restraints/seclusion/emergency medication: Justification of Continued Inpatient Treatment: Pt is in need of crisis interruption and stabilization, with medication adjustment and monitoring in a safe and therapeutic environment. Pt is gravely disabled.
[2021-10-04 19:00] VITALS: BP 117/72
[2021-10-04] MEDS ORDERED: hydrOXYzine 25 MG tablet PO PRN (20:30)
[2021-10-04] MEDS: haloperidol 5mg tablet PO SCH (20:40)
--- NOTE | 2021-10-04 22:44 | NUR ---
Nursing Progress Note: Legal hold: 5150 Client on Involuntary status for GD Report received from RUPALI Velez with use of SBAR Why patient is here: Pt is on a 5150 for GD. He was brought in by EMS on 09/28/21. His neighbors called 911 after hearing concerning noises that sounded like patient fell down the stairs. Pt was found crawling around on all fours, disheveled with food and milk in the house. He was confused. Pt lives at [facility] alone. Pt has a case liner at [facility] named Megan who reported to [facility] that patient has a history of confusion that resolves with medication though patient gets confused as to how and when to take his medications. His meds were last filled on 09/20/21. He had Invega-Sustenna 234 mg filled on 09/15/21 by a different provider. Uncertain whether or not there was a provider/medication change. Pt reports he just moved her recently in April of last year from the [facility]. Pt is edentulous and his mouth hangs open asymmetrically. Pt is only oriented to self. Pt has a history of schizophrenia. Assessment What happened this shift: Pt was in bed at change of shift. pt is pleasantly confused and doesnt respond when asked questions and just smiles. Pt is isolating to his room, takes HS meds and asks "are these for me?' Pt was assisted with applying eucerin cream. S/I, H/I: denies A/VH: denies Sleep: see sleep hours ADL's: Patient requires prompting Group attendance: No Were meds taken: Yes Any med S/E: None reported or noted Mental Status Exam Appearance: Tall male with long combed over hair and ritter parada with green unit scrubs. Eye contact: Fair Behavior: isolative, confused Speech: Does not initiate a conversation. Mood: Depressed Affect: Flat Thought process: Confused Thought Content: Frustrated when he is confused Insight: Poor Judgment: Poor Interventions PRN's used: None Therapeutic interventions: 1:1 assessment, establishment of rapport, therapeutic conversation, active listening, medication administration/education/monitoring, behavior monitoring and intervention as needed; distraction, redirection, reality orientation, limit setting, show of support, positive reinforcement, and Q 15 minute safety checks. Restraints/seclusion/emergency medication: Justification of Continued Inpatient Treatment: Pt is in need of crisis interruption and stabilization, with medication adjustment and monitoring in a safe and therapeutic environment. Pt is gravely disabled.
[2021-10-05 07:21] VITALS: BP 97/75
[2021-10-05] MEDS: sertraline 50mg tablet PO SCH ×2 (07:58→20:07)
[2021-10-05] MEDS: benztropine 1mg tablet PO SCH ×2 (07:58→20:07)
[2021-10-05] MEDS: lamoTRIgine 100mg tablet PO SCH (07:58)
[2021-10-05] MEDS: nicotine 14mg patch - 24hr TD SCH (07:59)
[2021-10-05] MEDS: mineral oil/petrolatum, white cream 113gm jar TP SCH ×2 (08:15→20:08)
--- NOTE | 2021-10-05 10:02 | NUR ---
Pt. attended group today. He participated in an art expression called, the Path to Wellness where they had to draw out their path to wellness in picture form with steps they will take to keep them well. Pt. sat quietly in the group listening to his peers and this French Folder. He shared minimally and his thought process appeared confused. When asked questions he appeared not to understand and when he tried to answer the question it did not make much sense. His demeanor was calm and pleasant. NATE ProW
--- NOTE | 2021-10-05 13:56 | NUR ---
Nursing Progress Note: Legal hold: 5150 Client on Involuntary status for GD Report received from RUPALI Coronado with use of SBAR Why patient is here: Pt is on a 5150 for GD. He was brought in by EMS on 09/28/21. His neighbors called 911 after hearing concerning noises that sounded like patient fell down the stairs. Pt was found crawling around on all fours, disheveled with food and milk in the house. He was confused. Pt lives at [facility] alone. Pt has a porter sample case at [facility] named Megan who reported to [facility] that patient has a history of confusion that resolves with medication though patient gets confused as to how and when to take his medications. His meds were last filled on 09/20/21. He had Invega-Sustenna 234 mg filled on 09/15/21 by a different provider. Uncertain whether or not there was a provider/medication change. Pt reports he just moved her recently in April of last year from the [facility]. Pt is edentulous and his mouth hangs open asymmetrically. Pt is only oriented to self. Pt has a history of schizophrenia. Assessment What happened this shift: Patient was asleep at change of shift and up RN awoke patient for breakfast. Patient is pleasant. RN in patient's room for a 1:1. Patient is possibly hard of hearing. Patient able to understand RN with mask removed. Patient denies SI/HI but states he is depressed. Patient said yes to Audio hallucinations but couldn't expound on that except to say "It is all jumbled." Patient given warm blanket and took a nap. Patient did go to morning group and was a little confused but glad he went. Patient is more understandable today than yesterday. S/I, H/I: denies A/VH: Yes to audio hallucinations. Sleep: slept most of the day except meals and went to morning group. ADL's: Patient requires prompting Group attendance: Yes to morning group Were meds taken: Yes Any med S/E: None reported or noted Mental Status Exam Appearance: Tall male with long hair and ritter parada with green unit scrubs. Eye contact: Fair Behavior: isolative, confused at times Speech: Does not initiate a conversation. Mood: Depressed Affect: Flat Thought process: Linear at times and Confused Thought Content: Frustrated when he is confused Insight: Poor Judgment: Poor Interventions PRN's used: None Therapeutic interventions: 1:1 assessment, establishment of rapport, therapeutic conversation, active listening, medication administration/education/monitoring, behavior monitoring and intervention as needed; distraction, redirection, reality orientation, limit setting, show of support, positive reinforcement, and Q 15 minute safety checks. Restraints/seclusion/emergency medication: Justification of Continued Inpatient Treatment: Pt is in need of crisis interruption and stabilization, with medication adjustment and monitoring in a safe and therapeutic environment. Pt is gravely disabled.
[2021-10-05 19:00] VITALS: BP 100/89
[2021-10-05] MEDS: haloperidol 5mg tablet PO SCH (20:08)
--- NOTE | 2021-10-05 23:58 | NUR ---
Nursing Progress Note Legal hold: 5250 for grave disability Report received from Ai Velez mini lab operator Pt was admitted on a 5150 for GD. He was brought in by EMS on 09/28/21. His neighbors called 911 after hearing concerning noises that sounded like patient fell down the stairs. Pt has a history of schizophrenia. He was off his medications and he was confused and unable to take care of himself Assessment What has happened this shift: The patient was isolative to his room. He was pleasant when approached for the evening assessment. He is confused and was unsure why he was here or where he was at. He stated that the month was August and the year was "[birth year] or [birth year]" He stated that he lives in an apartment. He denies that he is having thoughts to harm himself or others. His affect was blunted. He reports hearing voices but stated, "they're pretty good" He is disheveled with long hair that appeared to be unwashed and uncombed. He was given cream that was ordered but tried to put it in his mouth and had to be redirected. He is unable to provide for his own care at this time without supervision. He reports he has not showered for several days. He refused to come out of his room for the evening snack. He did complain of acid reflux and was given Maalox. His insight and judgement are impaired. He denied medication side effects but he did appear to have some extra movements of his tongue. He was medication compliant. He stated he did not know if he had a mental illness or not. Justification of Continued Inpatient Treatment: The patient continues to present as gravely disabled at this time. He is not attending to his ADLs and is confused.
[2021-10-06 07:07] VITALS: BP 133/82
[2021-10-06] MEDS: sertraline 50mg tablet PO SCH ×2 (08:57→20:15)
[2021-10-06] MEDS: lamoTRIgine 100mg tablet PO SCH (08:57)
[2021-10-06] MEDS: benztropine 1mg tablet PO SCH ×2 (08:57→20:15)
[2021-10-06] MEDS: nicotine 14mg patch - 24hr TD SCH (08:58)
[2021-10-06] MEDS: mineral oil/petrolatum, white cream 113gm jar TP SCH ×2 (08:58→20:15)
--- NOTE | 2021-10-06 12:38 | NUR ---
Nursing Progress Note: Legal hold: 5250 Client on involuntary status for GD Report received from nurse with use of SBAR: RUPALI Tolliver Why are they here: Pt was admitted on a 5150 for GD. He was brought in by EMS on 09/28/21. His neighbors called 911 after hearing concerning noises that sounded like patient fell down the stairs. Pt has a history of schizophrenia. He was off his medications and he was confused and unable to take care of himself Assessment What has happened this shift: Received pt. sleeping in bed at the beginning of the shift, he was awoken for breakfast and required direction in order to attend in the Group Room. Afterwards, pt. returned back to his room with needed guidance from staff (pt's room is labeled with his name r/t ongoing confusion). 1:1 was completed by this journalists and other writers at bedside, pt. presents as cooperative, slightly anxious, guarded, and withdraw. He is A&O x1, to name only. When questioned regarding where he is and the month, pt. reports he believes he is in [place] and the month is August. This journalists and other writers provided re-orientation to reality, and pt. reported some understanding. Pt. denies any S/I, H/I, or A/V/QUIJANO and does not appear to be internally preoccupied, he states, "I'm okay." However, pt. does report paranoid delusional thoughts that others want to hurt him, but when this journalists and other writers attempted to question him further regarding this pt. mumbled something in a dysarthric manner which was indiscernible. Pt. continues to remain guarded throughout the day and requires ongoing direction and encouragement to perform his ADLs. Obtained ordered EKG per LADI Carmona to check pt's QTC interval. This journalists and other writers completed ordered treatment to callous on pt's right lateral foot, no s/s of redness or open areas. Will continue to monitor. S/I, H/I: Denies A/VH: Denies, does not appear to be internally preoccupied Sleep: Sleep hours are 8.25. and pt. naps intermittently throughout the shift ADL's: Pt. requires direction and encouragement to independently perform ADLs Group attendance: No Were meds taken: Yes Any med S/E: None Mental Status Exam Appearance: Long disheveled hair with a large matted area, and disheveled clothing. Will encourage pt. to shower Eye contact: Good Behavior: Cooperative, slightly anxious, guarded, and withdrawn Speech: Ongoing dysarthria making pt. difficult to understand. Pt. is also hard of hearing, and requires removal of mask and increased volume of voice to understand this journalists and other writers. Mood: Slightly anxious and guarded Affect: Blunted Thought process: Confusion with disorganization Thought Content: Paranoid delusions Cognition: A&O X1 Insight: Poor Judgment: Poor Interventions PRN's used: None Therapeutic interventions: Introduced self and established rapport, maintained a safe and therapeutic environment, ensured contract for safety, provided clear and simple instructions, attempted to orient to reality, encouraged participation on the unit and independent performance of ADLs, provided ordered treatment to wound on pt's right foot, and maintained Q 15min safety checks. Restraints/seclusion/emergency medication: N/A Justification of Continued Inpatient Treatment: Per LADI Carmona pt. continues to require a safe and supportive environment and continued monitoring r/t a recent increase in medications. A safe discharge plan will be made by manager social work.
--- NOTE | 2021-10-06 13:46 | NUR ---
WOUND INFECTION EDUCATION PROVIDED BY WOUND CARE 1. Patient instructed to call their primary doctor, or go the ED immediately if any of the following symptoms occur: * Increased pain in wound * Increase in drainage from the wound * Redness in the skin surrounding the wound * Warmth in the skin surrounding the wound * Bleeding from the wound * Temperature of 101 or greater 2. If any of these occur while in the hospital tell a nurse immediately. Addendum: 10/06/21 at 1346 by Toshia Potter RN Amended: Links added.
[2021-10-06 19:00] VITALS: BP 105/62
[2021-10-06] MEDS: haloperidol 5mg tablet PO SCH (20:15)
--- NOTE | 2021-10-07 04:23 | NUR ---
Nursing Progress Note: Legal hold: 5250 Client on involuntary status for GD Report received from nurse with use of SBAR: RUPALI Wilkinson Why are they here: Pt was admitted on a 5150 for GD. He was brought in by EMS on 09/28/21. His neighbors called 911 after hearing concerning noises that sounded like patient fell down the stairs. Pt has a history of schizophrenia. He was off his medications and he was confused and unable to take care of himself Assessment What has happened this shift: Patient laying in bed at the beginning of shift. Pleasant and cooperative with care; compliant with medication. Patient denies SI, HI, A/VH; does not appear to be responding to IS and no apparent delusional thought content expressed this shift. Patient did not participate in HS snack this shift; observed sleeping and does not appear to be having difficulty. S/I, H/I: Denies A/VH: Denies Sleep: Refer to sleep assessment ADL's: Independent; some encouragement/prompting required Group attendance: NA Were meds taken: Yes Any med S/E: None observed or reported Mental Status Exam Appearance: Appropriately dressed in green unit attire Eye contact: Good Behavior: Pleasant and cooperative, isolative to room Speech: Mumbles, quiet, minimal Mood: "Same as always" Affect: Blunted Thought process: Poverty of thought Thought Content: Unable to assess Cognition: A&O X1 Insight: Poor Judgment: Poor Interventions PRN's used: None Therapeutic interventions: Introduced self and established rapport, maintained a safe and therapeutic environment, ensured contract for safety, provided clear and simple instructions, attempted to orient to reality, encouraged participation on the unit and independent performance of ADLs, provided ordered treatment to wound on pt's right foot, and maintained Q 15min safety checks. Restraints/seclusion/emergency medication: NA Justification of Continued Inpatient Treatment: Per LADI Carmona pt. continues to require a safe and supportive environment and continued monitoring r/t a recent increase in medications. A safe discharge plan will be made by perinatal social worker.
[2021-10-07 07:20] VITALS: BP 110/73
[2021-10-07] MEDS: mineral oil/petrolatum, white cream 113gm jar TP SCH ×2 (08:00→20:31)
[2021-10-07] MEDS: benztropine 1mg tablet PO SCH ×2 (08:23→20:30)
[2021-10-07] MEDS: lamoTRIgine 100mg tablet PO SCH (08:23)
[2021-10-07] MEDS: sertraline 50mg tablet PO SCH ×2 (08:23→20:30)
[2021-10-07] MEDS: nicotine 14mg patch - 24hr TD SCH (08:25)
--- NOTE | 2021-10-07 15:02 | NUR ---
Nursing Progress Note: Legal hold: 5250 Client on involuntary status for GD Report received from nurse with use of SBAR: Julia Terrell RN Why are they here: Pt was admitted on a 5150 for GD. He was brought in by EMS on 09/28/21. His neighbors called 911 after hearing concerning noises that sounded like patient fell down the stairs. Pt has a history of schizophrenia. He was off his medications and he was confused and unable to take care of himself Assessment What has happened this shift: Pt was up for breakfast. Pt was cooperative with his medications. Pt is hard of hearing though also appears to have some thought blocking. Pt thought today was [facility]. Pt knew he was in [place] but did not know the name of the hospital. Pt admits to . Pt reports the voices say things to him like "you don't know what you're doing." Pt states that they say things like this to him "all day long." Pt reports seeing shadow like things with "contrast." Pt asks if he can go outside. Soaked pt's right foot in warm water, then dried and applied Eucerin cream to callous right lateral foot pad. S/I, H/I: Pt denies. A/VH: Pt denies. Sleep: Pt slept 8.5 hours last night per noc shift report. ADL's: Independent with prompting and encouragement. Group attendance: No Were meds taken: Yes Any med S/E: None noted or reported. Mental Status Exam Appearance: Older appearing gentleman with longish straight ritter hair, he is edentulous, his mouth is droopy on the right side and he frequently allow it to hang open. Pt is dressed in green unit scrubs. Eye contact: Good Behavior: Pleasant, cooperative, mostly isolative to self and room. Speech: Slurred, delayed. Pt is edentulous and hard of hearing. Mood: Calm Affect: Blunted Thought process: Thought blocking. Thought Content: He wants to go outside. Cognition: A&O X1, off on the date by one day, knew he was in [place] but not the name of the hospital. Insight: Poor Judgment: Poor Interventions PRN's used: None Therapeutic interventions: 1:1 assessment, therapeutic conversation, active listening, maintained a safe and therapeutic environment, provided clear and simple instructions, medication administration/education/monitoring, encouragement of adequate fluid intake and personal care/hygiene, fall prevention, encouragement to attend groups and participate in unit activities, provided reality orientation, distraction, redirection, positive reinforcement, and maintained Q 15 minute safety checks. Restraints/seclusion/emergency medication: N/A Justification of Continued Inpatient Treatment: Per LADI Carmona pt. continues to require a safe and supportive environment and continued monitoring r/t a recent increase in medications. A safe discharge plan will be made by licensed clinical social worker.
--- NOTE | 2021-10-07 15:07 | NUR ---
Called [facility] to inquire about services and Anatoliy Art at the [facility] (ph# [phone]). Left message for Serene, case mgr with [facility] (ph# [phone]) and requested a call back. Also, left message for Fernie Christianson, Behavioral Health Coordinator (ph# [phone]), and requested a call back. DARLIN Ledbetter
[2021-10-07 19:00] VITALS: BP 97/62
[2021-10-07 19:41] VITALS: BP 97/62
[2021-10-07] MEDS: haloperidol 5mg tablet PO SCH (20:31)
--- NOTE | 2021-10-08 03:52 | NUR ---
Nursing Progress Note: Legal hold: 5250 Client on involuntary status for GD Report received from nurse with use of SBAR: RUPALI Wilkinson Why are they here: Pt was admitted on a 5150 for GD. He was brought in by EMS on 09/28/21. His neighbors called 911 after hearing concerning noises that sounded like patient fell down the stairs. Pt has a history of schizophrenia. He was off his medications and he was confused and unable to take care of himself Assessment What has happened this shift: Patient laying awake in bed at the beginning of shift. Pleasant and cooperative with care; compliant with medication. Patient reported AH this shift but did not elaborate; denies SI, HI. Patient remained in bed and did not participate in HS snack. Patient awoke to use the restroom but appeared to miss the toilet and urinated in the corner of the restroom. Patient appears to be having a lot of hair loss so upon returning to bed his linen and clothing were changed; observed sleeping and does not appear to be having difficulty. S/I, H/I: Denies A/VH: +AH Sleep: Refer to sleep assessment ADL's: Requires moderate assistance Group attendance: NA Were meds taken: Yes Any med S/E: None observed or reported Mental Status Exam Appearance: Appropriately dressed in green unit attire Eye contact: Good Behavior: Pleasant and cooperative, isolative to room Speech: Mumbles, quiet, minimal Mood: "Same o' same o'" Affect: Blunted Thought process: Poverty of thought Thought Content: Unable to assess Cognition: A&O X1 Insight: Poor Judgment: Poor Interventions PRN's used: None Therapeutic interventions: Introduced self and established rapport, maintained a safe and therapeutic environment, ensured contract for safety, provided clear and simple instructions, attempted to orient to reality, encouraged participation on the unit and independent performance of ADLs, provided ordered treatment to wound on pt's right foot, and maintained Q 15min safety checks. Restraints/seclusion/emergency medication: NA Justification of Continued Inpatient Treatment: Per LADI Carmona pt. continues to require a safe and supportive environment and continued monitoring r/t a recent increase in medications. A safe discharge plan will be made by social media campaign manager.
[2021-10-08] MEDS: mineral oil/petrolatum, white cream 113gm jar TP SCH ×2 (08:04→20:00)
[2021-10-08 08:16] VITALS: BP 98/68
[2021-10-08] MEDS: lamoTRIgine 100mg tablet PO SCH (08:26)
[2021-10-08] MEDS: sertraline 50mg tablet PO SCH ×2 (08:26→21:04)
[2021-10-08] MEDS: benztropine 1mg tablet PO SCH ×2 (08:27→21:04)
[2021-10-08] MEDS: nicotine 14mg patch - 24hr TD SCH (08:31)
--- NOTE | 2021-10-08 13:18 | NUR ---
Reassessment: Pt continues eating well with mostly 100% PO intake of meals. LBM 09/28 though actual LBM unknown per EMR and pt denies symptoms of constipation per EMR. Pt received first dose of PRN MoM 10/03. D/w dietary to send prune juice and power pudding to further assist with bowel regularity. Will continue to follow and monitor need for additional nutrition intervention. Recommendations: 1. Continue mechanical soft diet 2. Routine bowel care; utilize PRN bowel care 3. Weekly scaled wts Addendum: 10/08/21 at [address] Amended: Links added.
--- NOTE | 2021-10-08 13:19 | NUR ---
Reassessment: Pt continues eating well with mostly 100% PO intake of meals. LBM 09/28 though actual LBM unknown per EMR and pt denies symptoms of constipation per EMR. Pt received first dose of PRN MoM 10/03. D/w dietary to send prune juice and power pudding to further assist with bowel regularity. Will continue to follow and monitor need for additional nutrition intervention. Recommendations: 1. Continue mechanical soft diet 2. Routine bowel care; utilize PRN bowel care 3. Weekly scaled wts Addendum: 10/08/21 at [address] Amended: Links added.
--- NOTE | 2021-10-08 14:59 | NUR ---
Nursing Progress Note: Legal hold: 5250 Client on involuntary status for GD Report received from nurse with use of SBAR: Julia Terrell RN Why are they here: Pt was admitted on a 5150 for GD. He was brought in by EMS on 09/28/21. His neighbors called 911 after hearing concerning noises that sounded like patient fell down the stairs. Pt has a history of schizophrenia. He was off his medications and he was confused and unable to take care of himself Assessment What has happened this shift: Pt was up for breakfast. Pt was cooperative with his medications. Pt's hair was greasy this morning. Pt was encouraged to shower and was able to do so independently. Pt is hard of hearing and continues to be confused. Pt still unable to state the name of this hospital and when asked about the date, he replied, "I know it's November." Pt did not seem to understand the mental health assessment questions. When asked about voices, he may not have heard correctly, he nodded yes but when asked what they were saying, he indignantly asked, "who said what?!" and then, "I don't care what they say." Pt expressed concern over where all his stuff is. S/I, H/I: Pt denies. A/VH: Pt denies. Sleep: Pt slept 9 hours last night per noc shift report. ADL's: Independent with prompting, encouragement, and set up. Group attendance: No groups today. Were meds taken: Yes Any med S/E: None noted or reported. Mental Status Exam Appearance: Older appearing gentleman with longish straight ritter hair, he is edentulous, his mouth is droopy on the right side and he frequently allow it to hang open. Pt is dressed in green unit scrubs. Eye contact: Good Behavior: Pleasant, cooperative, mostly isolative to self and room. Speech: Slurred, delayed. Pt is edentulous and hard of hearing. Mood: Calm Affect: Blunted Thought process: Thought blocking. Thought Content: He is worried about his stuff. Cognition: A&O X 1 Insight: Poor Judgment: Poor Interventions PRN's used: None Therapeutic interventions: 1:1 assessment, therapeutic conversation, active listening, maintained a safe and therapeutic environment, provided clear and simple instructions, medication administration/education/monitoring, encouragement of adequate fluid intake and personal care/hygiene, fall prevention, encouragement to attend groups and participate in unit activities, provided reality orientation, distraction, redirection, positive reinforcement, and maintained Q 15 minute safety checks. Restraints/seclusion/emergency medication: N/A Justification of Continued Inpatient Treatment: Per LADI Carmona pt. continues to require a safe and supportive environment and continued monitoring r/t a recent increase in medications. A safe discharge plan will be made by high school social studies tutor.
--- NOTE | 2021-10-08 16:38 | NUR ---
Pt's HS Haldol was decreased from 10 mg to 5 mg. He has a new order for Risperdal 1 mg HS.
[2021-10-08 19:00] VITALS: BP 133/74
--- NOTE | 2021-10-08 19:04 | NUR ---
RC'D REPORT AND ASSUMED CARE.
[2021-10-08] MEDS: haloperidol 5mg tablet PO SCH (21:03)
[2021-10-08] MEDS: risperiDONE 0.5mg tablet PO SCH (21:04)
--- NOTE | 2021-10-09 02:42 | NUR ---
Nursing Progress Note: Legal hold: 5250 Client on involuntary status for GD Report received from nurse with use of SBAR: RUPALI Wilkinson REASON FOR ADMIT:Admitted on09/28/2021 Anatoliy was placed on a 179 11 after he was found crawling in his apartment drooling. All of the food/drink in his apartment was . Anatoliy is disoriented and confused. He believes the year is 1970 and cannot report when he last ate. He has no viable plan for food, clothing and/or penitentiary. This Shift: Patient laying in bed and asleep at the beginning of shift. Easily awakenedPleasant and cooperative with care; compliant with medication and good eye contact made. Patient remained in bed and did not participate in HS snack. Denied any pain or discomfort, was pleasant but did not have much to say. Speech noted to be slurred and evidence of CVA Hx noted. Later in shift patient observed sleeping and does not appear to be having difficulty. Per LADI Carmona, Pt. continues to require a safe and supportive environment and continued monitoring r/t a recent increase in medications. A safe discharge plan will be made by social services specialist.
[2021-10-09 07:26] VITALS: BP 100/79
[2021-10-09] MEDS: mineral oil/petrolatum, white cream 113gm jar TP SCH ×2 (08:00→20:18)
[2021-10-09] MEDS: benztropine 1mg tablet PO SCH ×2 (08:04→20:18)
[2021-10-09] MEDS: sertraline 50mg tablet PO SCH ×2 (08:04→20:18)
[2021-10-09] MEDS: lamoTRIgine 100mg tablet PO SCH (08:05)
[2021-10-09] MEDS: nicotine 14mg patch - 24hr TD SCH (08:05)
--- NOTE | 2021-10-09 15:16 | NUR ---
Nursing Progress Note: Anatoliy Donald Legal hold: 5250 Client on involuntary status for GD Report received from nurse from [facility] with use of SBAR Why are they here: Pt was admitted on a 5150 for GD. He was brought in by EMS on 09/28/21. His neighbors called 911 after hearing concerning noises that sounded like patient fell down the stairs. Pt has a history of schizophrenia. He was off his medications and he was confused and unable to take care of himself Assessment What has happened this shift: Pt. received sleeping, woke to receive his medications and 1:1 assessment. Pt. presents as disoriented and confused often sitting with his mouth open and drool running out of the right side, some facial drooping observed. Pt. is a poor historian and was unable to verbalize the circumstances resulting in hospitalization and presents with poverty of thought. Pt. is willing to eat in MDR with cohorts and is friendly, but often returned to his room for a nap throughout the day. He was provided with reminders to toilet and had no episodes of incontinence. S/I, H/I: Denies. A/VH: Denies. Sleep: Napped intermittently ADL's: Prompting and set up. Group attendance: NA Were meds taken: Yes Any med S/E: None noted or reported. Mental Status Exam Appearance: Older male with long hair, drools regularly, wearing unit scrubs Eye contact: Good Behavior: Pleasant, mostly isolative to self and room. Speech: Slurred, edentulous Mood: Calm Affect: Blunted Thought process: Thought blocking. Thought Content: Poverty of thought Cognition: A&O X 1 Insight: Poor Judgment: Poor Interventions PRN's used: None Therapeutic interventions: 1:1 assessment, therapeutic conversation, active listening, maintained a safe and therapeutic environment, provided clear and simple instructions, medication administration/education/monitoring, encouragement of adequate fluid intake and personal care/hygiene, fall prevention, encouragement to attend groups and participate in unit activities, provided reality orientation, distraction, redirection, positive reinforcement, and maintained Q 15 minute safety checks. Restraints/seclusion/emergency medication: N/A Justification of Continued Inpatient Treatment: Per LADI Carmona pt. continues to require a safe and supportive environment and continued monitoring r/t a recent increase in medications. A safe discharge plan will be made by manager social media.
--- NOTE | 2021-10-09 18:42 | NUR ---
Nursing Progress Note: Anatoliy Donald Legal hold: 5250 Client on involuntary status for GD Report received from Minh ZAPIEN with use of SBAR
[2021-10-09 19:29] VITALS: BP 100/59
[2021-10-09] MEDS: haloperidol 5mg tablet PO SCH (20:18)
[2021-10-09] MEDS: risperiDONE 0.5mg tablet PO SCH (20:18)
--- NOTE | 2021-10-10 00:30 | NUR ---
Reason For Admit: Pt was admitted on a 5150 for GD. He was brought in by EMS on 09/28/21. His neighbors called 911 after hearing concerning noises that sounded like patient fell down the stairs. Pt has a history of schizophrenia. He was off his medications and he was confused and unable to take care of himself This Shift: Patient was observed sleeping when rounds were made after report. Anatoliy did not go to the community room at 2000 for snack, just cont'd to sleep. Woke easily for meds and WOC care to R foot. Not able to tell me when he had his last BM, denied pain. Speech is garbled with significant L facial droop, has HX of CVA. No concerns voiced and returned to sleep after taking meds and wound care.
[2021-10-10] MEDS: benztropine 1mg tablet PO SCH ×2 (07:44→20:12)
[2021-10-10] MEDS: sertraline 50mg tablet PO SCH ×2 (07:44→20:12)
[2021-10-10] MEDS: nicotine 14mg patch - 24hr TD SCH (07:44)
[2021-10-10] MEDS: lamoTRIgine 100mg tablet PO SCH (07:45)
[2021-10-10] MEDS: mineral oil/petrolatum, white cream 113gm jar TP SCH ×2 (08:00→20:13)
[2021-10-10 08:36] VITALS: BP 122/63
--- NOTE | 2021-10-10 13:57 | NUR ---
STAGE ELECTRICIAN Spoke with Fernie, Behavioral Health Integration Coordinator (ph# [phone]), who is the telephonic case manager working with Anatoliy. He reported he will schedule Anatoliy' follow up with his PCP. He reported Anatoliy already has [facility] approved, he just needs a worker which Fernie can assist with. Fernie reported he may be able to assist with transporting Anatoliy home upon discharge. DARLIN Ledbetter
--- NOTE | 2021-10-10 15:08 | NUR ---
WOUND INFECTION EDUCATION PROVIDED BY WOUND CARE 1. Patient instructed to call their primary doctor, or go the ED immediately if any of the following symptoms occur: * Increased pain in wound * Increase in drainage from the wound * Redness in the skin surrounding the wound * Warmth in the skin surrounding the wound * Bleeding from the wound * Temperature of 101 or greater 2. If any of these occur while in the hospital tell a nurse immediately. Addendum: 10/10/21 at 1509 by Toshia Potter RN Amended: Links added.
--- NOTE | 2021-10-10 15:46 | NUR ---
Nursing Progress Note: Anatoliy Donald Legal hold: 5250 Client on involuntary status for GD Report received from nurse from [facility] with use of SBAR Why are they here: Pt was admitted on a 5150 for GD. He was brought in by EMS on 09/28/21. His neighbors called 911 after hearing concerning noises that sounded like patient fell down the stairs. Pt has a history of schizophrenia. He was off his medications and he was confused and unable to take care of himself Assessment What has happened this shift: Pt. received sleeping, woke to attend breakfast, and received his medications. Later 1:1 assessment completed. Pt. presented with slight increased clarity and reported AH stating the voices say, I dont know what Im doing, Im trouble Pt. reports I dont know why Im here and reports his discharge plans are to go home. Facial drooping and drooling continues. He was found to have thick white and brown plaques on his tongue; provider notified. Pt. ate all meals in MDR with cohorts he is cooperative and friendly, he napped most of the morning. He continues to need reminders for toileting and self-care. S/I, H/I: Denies. A/VH: Endorses AH Sleep: Napped intermittently ADL's: Prompting and set up. Group attendance: Yes Were meds taken: Yes Any med S/E: None noted or reported. Mental Status Exam Appearance: Older male with long hair, drools regularly, wearing unit scrubs Eye contact: Good Behavior: Pleasant, mostly isolative to self and room. Speech: Slurred, edentulous Mood: Calm Affect: Blunted Thought process: Thought blocking. Thought Content: Poverty of thought Cognition: A&O X 1 Insight: Poor Judgment: Poor Interventions PRN's used: None Therapeutic interventions: 1:1 assessment, therapeutic conversation, active listening, maintained a safe and therapeutic environment, provided clear and simple instructions, medication administration/education/monitoring, encouragement of adequate fluid intake and personal care/hygiene, fall prevention, encouragement to attend groups and participate in unit activities, provided reality orientation, distraction, redirection, positive reinforcement, and maintained Q 15 minute safety checks. Restraints/seclusion/emergency medication: N/A Justification of Continued Inpatient Treatment: Per LADI Carmona pt. continues to require a safe and supportive environment and continued monitoring r/t a recent increase in medications. A safe discharge plan will be made by social services assistant.
[2021-10-10 19:21] VITALS: BP 105/68
[2021-10-10] MEDS: risperiDONE 2mg tablet PO SCH (20:12)
--- NOTE | 2021-10-10 21:05 | NUR ---
Nursing Progress Note: Anatoliy Shabana Legal hold: 5250 Client on involuntary status for GD Report received from Minh YANEZ with use of SBAR Why are they here: Pt was admitted on a 5150 for GD. He was brought in by EMS on 09/28/21. His neighbors called 911 after hearing concerning noises that sounded like patient fell down the stairs. Pt has a history of schizophrenia. He was off his medications and he was confused and unable to take care of himself Assessment What has happened this shift: Pt was in his room at change of shift resting. Pt gives minimal response to questions but states he wants to go home and he is "good". Asked him about his medication and sleep and he states his medicine is "working." Pt sat with peers in the group room watching tv during snack before going to bed. Pt is pleasantly confused. S/I, H/I: Denies. A/VH: Endorses AH Sleep: see sleep hours ADL's: Prompting and set up. Group attendance: Yes Were meds taken: Yes Any med S/E: None noted or reported. Mental Status Exam Appearance: Older male with long hair, drools regularly, wearing unit scrubs Eye contact: Good Behavior: Pleasant, mostly isolative to self and room. Speech: Slurred Mood: "good" Affect: Blunted Thought process: Thought blocking. Thought Content: Poverty of thought Cognition: A&O X 1 Insight: Poor Judgment: Poor Interventions PRN's used: None Therapeutic interventions: 1:1 assessment, therapeutic conversation, active listening, maintained a safe and therapeutic environment, provided clear and simple instructions, medication administration/education/monitoring, encouragement of adequate fluid intake and personal care/hygiene, fall prevention, encouragement to attend groups and participate in unit activities, provided reality orientation, distraction, redirection, positive reinforcement, and maintained Q 15 minute safety checks. Restraints/seclusion/emergency medication: N/A Justification of Continued Inpatient Treatment: Per LADI Carmona pt. continues to require a safe and supportive environment and continued monitoring r/t a recent increase in medications. A safe discharge plan will be made by social media intern.
[2021-10-11 07:25] VITALS: BP 113/76
[2021-10-11] MEDS: lamoTRIgine 100mg tablet PO SCH (08:18)
[2021-10-11] MEDS: sertraline 50mg tablet PO SCH ×2 (08:19→20:21)
[2021-10-11] MEDS: benztropine 1mg tablet PO SCH ×2 (08:19→20:21)
[2021-10-11] MEDS: nicotine 14mg patch - 24hr TD SCH (08:26)
[2021-10-11] MEDS: mineral oil/petrolatum, white cream 113gm jar TP SCH ×2 (08:26→20:00)
--- NOTE | 2021-10-11 08:50 | NUR ---
DISCHARGE PLANNING Spoke to Rm [place] caser in ([phone]), who reported he can fern picker Anatoliy morning upon discharge and can assist him with going to his appointment at [facility] . Fernie reported he can fern picker Anatoliy at 9:30 AM on . DARLIN Ledbetter
--- NOTE | 2021-10-11 13:50 | NUR ---
Nursing Progress Note: Anatoliy Donald Legal hold: 5250 Client on involuntary status for GD Report received from nurse from [facility] Tolliver with use of SBAR Why are they here: Pt was admitted on a 5150 for GD. He was brought in by EMS on 09/28/21. His neighbors called 911 after hearing concerning noises that sounded like patient fell down the stairs. Pt has a history of schizophrenia. He was off his medications and he was confused and unable to take care of himself Assessment What has happened this shift: Patient was asleep at change of shift and awoken for breakfast. Patient is calm and cooperative. Patient is pleasant. Patient eats his breakfast and is back in bed. Patient isolates most of the day except for meals. Patient is hard of hearing and RN pulls down her mask when speaking to patient. Patient denies suicidal/homicidal ideation. Patient does hear voices and he can't always understand what they say. Patient needs prompting for showers and general cleanliness. Patient does not attend group and patient did not go outside when most of the other patients went. Patient is going home on and will have and [facility] worker to assist him. S/I, H/I: Denies. A/VH: Yes to audio hallucinations Sleep: Napped except when eating ADL's: Needs prompting Group attendance: No Were meds taken: Yes Any med S/E: None noted or reported. Mental Status Exam Appearance: Older male with long hair wearing green scrubs. Eye contact: Good Behavior: Pleasant, Isolative Speech: Poverty of speech Mood: Calm Affect: Flat Thought process: Difficult to ascertain Thought Content: Cognition: A&O X 1 Insight: Poor Judgment: Poor Interventions PRN's used: None Therapeutic interventions: 1:1 assessment, therapeutic conversation, active listening, maintained a safe and therapeutic environment, provided clear and simple instructions, medication administration/education/monitoring, encouragement of adequate fluid intake and personal care/hygiene, fall prevention, encouragement to attend groups and participate in unit activities, provided reality orientation, distraction, redirection, positive reinforcement, and maintained Q 15 minute safety checks. Restraints/seclusion/emergency medication: N/A Justification of Continued Inpatient Treatment: Per LADI Carmona pt. continues to require a safe and supportive environment and continued monitoring r/t a recent increase in medications. A safe discharge plan will be made by social media campaign manager.
[2021-10-11 19:00] VITALS: BP 106/64
[2021-10-11] MEDS: risperiDONE 2mg tablet PO SCH (20:21)
--- NOTE | 2021-10-12 01:44 | NUR ---
Nursing Progress Note: Legal hold: 5250 Client on involuntary status for GD Report received from RUPALI Wilkinson with use of SBAR Why are they here: Pt was admitted on a 5150 for GD. He was brought in by EMS on 09/28/21. His neighbors called 911 after hearing concerning noises that sounded like patient fell down the stairs. Pt has a history of schizophrenia. He was off his medications and he was confused and unable to take care of himself Assessment What has happened this shift: Patient seen at bedside for 1:1. He reports that he's doing fine, but ready to go home. Patient does not speak much, but is always pleasant and cooperative. He chose not to get up tonight for snack, so he never got up tonight. He was compliant with HS medications and went back to sleep. S/I, H/I: Denies. A/VH: Endorses AH Sleep: Refer to sleep assessment ADL's: Prompting and set up. Group attendance: Were meds taken: Yes Any med S/E: None noted or reported. Mental Status Exam Appearance: Older male with long hair, drools regularly, wearing unit scrubs Eye contact: Good Behavior: Pleasant, mostly isolative to self and room. Speech: Slurred Mood: "good" Affect: Blunted Thought process: Thought blocking. Thought Content: Poverty of thought Cognition: A&O X 1 Insight: Poor Judgment: Poor Interventions PRN's used: None Therapeutic interventions: 1:1 assessment, therapeutic conversation, active listening, maintained a safe and therapeutic environment, provided clear and simple instructions, medication administration/education/monitoring, encouragement of adequate fluid intake and personal care/hygiene, fall prevention, encouragement to attend groups and participate in unit activities, provided reality orientation, distraction, redirection, positive reinforcement, and maintained Q 15 minute safety checks. Restraints/seclusion/emergency medication: N/A Justification of Continued Inpatient Treatment: Per LADI Carmona pt. continues to require a safe and supportive environment and continued monitoring r/t a recent increase in medications. A safe discharge plan will be made by social welfare research worker.
[2021-10-12 07:00] VITALS: BP 130/64
[2021-10-12] MEDS: lamoTRIgine 100mg tablet PO SCH (07:42)
[2021-10-12] MEDS: sertraline 50mg tablet PO SCH ×2 (07:42→20:20)
[2021-10-12] MEDS: benztropine 1mg tablet PO SCH ×2 (07:42→20:20)
[2021-10-12] MEDS: nicotine 14mg patch - 24hr TD SCH (07:44)
[2021-10-12] MEDS: mineral oil/petrolatum, white cream 113gm jar TP SCH ×2 (09:29→20:20)
--- NOTE | 2021-10-12 12:13 | NUR ---
WOUND INFECTION EDUCATION PROVIDED BY WOUND CARE 1. Patient instructed to call their primary doctor, or go the ED immediately if any of the following symptoms occur: * Increased pain in wound * Increase in drainage from the wound * Redness in the skin surrounding the wound * Warmth in the skin surrounding the wound * Bleeding from the wound * Temperature of 101 or greater 2. If any of these occur while in the hospital tell a nurse immediately. Addendum: 10/12/21 at 1214 by Toshia Potter RN Amended: Links added.
--- NOTE | 2021-10-12 17:33 | NUR ---
Nursing Progress Note: STACY Legal hold: 5250 Expires 10/16. Client on involuntary status for GD Report received from BEAU Tolliver with use of SBAR. Why are they here: Pt was admitted on a 5150 for GD. He was brought in by EMS on 09/28/21. His neighbors called 911 after hearing concerning noises that sounded like patient fell down the stairs. Pt has a history of schizophrenia. He was off his medications and he was confused and unable to take care of himself. Assessment What has happened this shift: Received patient sleeping at shift change, no distress noted. Pt woke, ate breakfast then returned to bed as his routine. Patient was compliant with care and medication. Pt was more visible on unit today. Pt showered and linens changed. Pt presents slightly confused and hard of hearing. Pt is difficult to understand as his speech is slurred. Pts callous on plantar side of feet is healed, Eucerin cream was administered. Pt eats all meals and snacks in group room. Encouraged pt to perform oral hygiene. S/I, H/I: Denies both. A/VH: +AH Sleep: 8.5 hours per sleep assessment. Intermittent naps. ADL's: Needs prompting. Showered today. Linens changed. Group attendance: No scheduled group today. Were meds taken: Yes, without issue. Any med S/E: None noted or reported. Mental Status Exam Appearance: Older male with long hair wearing green scrubs. Eye contact: Good Behavior: Pleasant, Isolative Speech: Slurred, poverty of speech Mood: Euthymic Affect: Flat Thought process: Difficult to ascertain Thought Content: Getting needs meet. Cognition: A&O X 2 Insight: Poor Judgment: Poor Interventions PRN's used: None Therapeutic interventions: 1:1 assessment, therapeutic conversation, active listening, maintained a safe and therapeutic environment, provided clear and simple instructions, medication administration/education/monitoring, encouragement of adequate fluid intake and personal care/hygiene,encouragement to attend groups and participate in unit activities, provided reality orientation, distraction, redirection, positive reinforcement, and maintained Q 15 minute safety checks. Restraints/seclusion/emergency medication: N/A Justification of Continued Inpatient Treatment: Per LADI Carmona pt. continues to require a safe and supportive environment and continued monitoring r/t a recent increase in medications. A safe discharge plan will be made by social science professor.
[2021-10-12 19:11] VITALS: BP 112/89
[2021-10-12] MEDS: risperiDONE 2mg tablet PO SCH (20:19)
--- NOTE | 2021-10-12 20:59 | NUR ---
Nursing Progress Note: STACY Legal hold: 5250 Expires 10/16. Client on involuntary status for GD Report received from BEAU Boswell with use of SBAR. Why are they here: Pt was admitted on a 5150 for GD. He was brought in by EMS on 09/28/21. His neighbors called 911 after hearing concerning noises that sounded like patient fell down the stairs. Pt has a history of schizophrenia. He was off his medications and he was confused and unable to take care of himself. Assessment What has happened this shift:pt was in his room at change of shift, isolates to himself. Pt gives one word answers to questions or shrugs his shoulders. Pt declined to have a snack today, states his day was good. Pt c/o constipation but declined prune juice or prn medications when encouraged. Pt remained in his room for the shift and went to bed after HS med pass. S/I, H/I: Denies both. A/VH: +AH Sleep: see sleep hours ADL's: Needs prompting. Showered today. Linens changed. Group attendance: No scheduled group today. Were meds taken: Yes, without issue. Any med S/E: None noted or reported. Mental Status Exam Appearance: Older male with long hair wearing green scrubs. Eye contact: Good Behavior: Pleasant, Isolative Speech: Slurred, poverty of speech Mood: Euthymic Affect: Flat Thought process: Unable to assess Thought Content: Getting needs meet. Cognition: A&O X 2 Insight: Poor Judgment: Poor Interventions PRN's used: None Therapeutic interventions: 1:1 assessment, therapeutic conversation, active listening, maintained a safe and therapeutic environment, provided clear and simple instructions, medication administration/education/monitoring, encouragement of adequate fluid intake and personal care/hygiene,encouragement to attend groups and participate in unit activities, provided reality orientation, distraction, redirection, positive reinforcement, and maintained Q 15 minute safety checks. Restraints/seclusion/emergency medication: N/A Justification of Continued Inpatient Treatment: Per LADI Carmona pt. continues to require a safe and supportive environment and continued monitoring r/t a recent increase in medications. A safe discharge plan will be made by group social worker.
[2021-10-13 07:24] VITALS: BP 121/72
[2021-10-13] MEDS: lamoTRIgine 100mg tablet PO SCH (08:11)
[2021-10-13] MEDS: benztropine 1mg tablet PO SCH (08:12)
[2021-10-13] MEDS: sertraline 50mg tablet PO SCH (08:12)
[2021-10-13] MEDS: nicotine 14mg patch - 24hr TD SCH (08:16)
[2021-10-13] MEDS: magnesium hydroxide 30ml (MOM) UD suspension PO PRN (09:26)
[2021-10-13] MEDS ORDERED: BENZ2TAB7 PO (09:30)
[2021-10-13] MEDS ORDERED: MINE120C5 TP (09:30)
[2021-10-13] MEDS ORDERED: LAMO100T PO (09:30)
[2021-10-13] MEDS ORDERED: NICO-907 BC (09:30)
[2021-10-13] MEDS ORDERED: NICO-631 TD (09:30)
[2021-10-13] MEDS ORDERED: SERT-434 PO (09:30)
[2021-10-13] MEDS ORDERED: RISP2TAB85 PO (09:30)
--- NOTE | 2021-10-13 09:50 | NUR ---
DISCHARGE NOTE: Pt. discharged to home, driven by county team cdl driver. RN went over all discharge paperwork with pt. Pt. verbalized understanding of discharge medication regimen, f/u appointments, and emergency phone numbers including 911. Pt. signed all paperwork. Pt. is A&O to self only. Pt. denies SI/HI, A/V hallucinations. Pt. is in no apparent distress.
== END 2021-10-13 09:50 | disposition home or self-care (01) | DRG 751 ==
LOC: ER 20:13 → ADULT MH 09-29 15:55
PROVIDERS: ADMIT Psychiatry & Neurology Psychiatry; ATTEND Psychiatry & Neurology Psychiatry
DX: F29 Unspecified psychosis not due to a substance or known physiological condition (principal); I95.9 Hypotension, unspecified; I69.322 Dysarthria following cerebral infarction; F20.9 Schizophrenia, unspecified; F17.210 Nicotine dependence, cigarettes, uncomplicated; Z20.822 Contact with and (suspected) exposure to COVID-19; Z60.2 Problems related to living alone; G24.01 Drug induced subacute dyskinesia; Z56.0 Unemployment, unspecified; Z71.6 Tobacco abuse counseling; Z79.899 Other long term (current) drug therapy
CPT/HCPCS: 36415; 70450; 72125; 80053; 80061; 80305; 80320; 81003; 82948; 83036; 84145; 84443; 85025; 87081; 87635; 93005; 96360; 99285; C9803; J7030

== ENCOUNTER 2022-07-07 10:55 | Inpatient (IN) | payer MEDICAID ==
[~2022-07-07] VITALS: Ht 177.8 cm; Wt 76.1 kg
[~2022-07-07 10:55] MED LIST: BENZ2TAB7 PO; LAMO100T PO; MINE120C5 TP; NICO-631 TD; NICO-907 BC; RISP2TAB85 PO; SERT-434 PO
[2022-07-07 20:00] LABS: BASOPHILS % (AUTO) 0.5 % (0-1); EOSINOPHILS % (AUTO) 0.2 % (0-6); HEMATOCRIT 40.7 % (42.0-52.0); HEMOGLOBIN 13.9 g/dl (14.0-17.9); LYMPHOCYTES # (AUTO) 1.4 X10'3 (1.1-4.8); LYMPHOCYTES % (AUTO) 18.7 % (21-51); MEAN CORPUSCULAR HEMOGLOBIN 30.9 PG (27.0-31.0); MEAN CORPUSCULAR HGB CONC 34.2 g/dL (33.0-36.5); MEAN CORPUSCULAR VOLUME 90.3 FL (78-98); MEAN PLATELET VOLUME 8.4 FL (7.4-10.4); MONOCYTES # (AUTO) 0.5 X10'3 (0-0.9); NEUTROPHILS # (AUTO) 5.5 X10'3 (1.8-7.7); NEUTROPHILS % (AUTO) 73.6 % (42-75); PLATELET COUNT 169 X10'3 (140-440); RED BLOOD COUNT 4.51 X10'6 (4.70-6.10); RED CELL DISTRIBUTION WIDTH 14.6 % (11.5-14.5); WHITE BLOOD COUNT 7.5 X10'3 (4.5-11.0)
[2022-07-07 20:06] LABS: ALANINE AMINOTRANSFERASE 14 U/L (12-78); ALBUMIN 4.2 G/DL (3.4-5.0); ALBUMIN/GLOBULIN RATIO 1.6 (1.1-1.5); ALKALINE PHOSPHATASE 59 IU/L (46-116); ANION GAP 16 (8-16); ASPARTATE AMINO TRANSFERASE 19 U/L (10-37); BILIRUBIN,TOTAL 0.8 MG/DL (0.1-1.0); BLOOD UREA NITROGEN 19 MG/DL (7-18); BUN/CREATININE RATIO 19.6 (5.4-32.0); CALCIUM 9.3 MG/DL (8.5-10.1); CHLORIDE 102 MMOL/L (99-107); CREATININE 0.97 MG/DL (0.60-1.10); GLUCOSE 113 MG/DL (70-104); POTASSIUM 3.6 MMOL/L (3.5-5.1); SODIUM 139 MMOL/L (135-145); TOTAL CARBON DIOXIDE 21.4 MMOL/L (24-32); TOTAL PROTEIN 6.8 G/DL (6.4-8.2); eGFR 78 ML/MIN
[2022-07-07] MEDS ORDERED: acetaminophen 650mg rectal suppository RC PRN (21:55)
[2022-07-07] MEDS ORDERED: diphenhydrAMINE 25mg capsule PO PRN (21:55)
[2022-07-07] MEDS ORDERED: ondansetron/PF 4mg/2ml inj IV PRN (21:55)
[2022-07-07] MEDS ORDERED: ondansetron 4mg rapidly disintigrating tab PO PRN (21:55)
[2022-07-07] MEDS ORDERED: acetaminophen 325mg tablet PO PRN ×2 (21:55)
[2022-07-07] MEDS ORDERED: bisacodyl 10mg suppository rectal RC PRN (21:55)
[2022-07-07] MEDS ORDERED: mag hydrox/Alum hydrox/simeth 30ml oral suspension PO PRN (21:55)
[2022-07-07] MEDS ORDERED: morphine 2 MG/ML inj. syringe IV PRN ×2 (21:55)
[2022-07-07] MEDS ORDERED: diphenhydrAMINE 50 mg/ml inj IV PRN (21:55)
[2022-07-07 22:09] LABS: APTT 24 SECONDS (22-32)
[2022-07-07 22:15] LABS: CREATINE KINASE 249 U/L (39-308); LIPASE 77 U/L (73-393)
[2022-07-07 22:18] LABS: ETHANOL < 0.010 GM/DL (0.0-0.010)
[2022-07-07 23:19] LABS: MAGNESIUM 2.3 MG/DL (1.5-2.4); PHOSPHORUS 4.6 MG/DL (2.3-4.5)
[2022-07-07 23:27] LABS: HEMOGLOBIN A1C 5.5 % (4.5-6.2)
[2022-07-08] VITALS: BP 128/79
[2022-07-08] MEDS: normal saline 1000ml 1,000 ML IV SCH ×3 (00:43→19:46)
--- NOTE | 2022-07-08 00:45 | NUR ---
PT REPOSITIONED IN BED PICTURES TAKEN OF BACK ON ADMIT SEE CHART. OPTIFOAM TO LOW BACK RED AREA &BLISTER, CALZME CREAM TO THE EXCORITAED SACRUM BUTTOX AREA. IV FLUIDS STARTED ORDERED.
[2022-07-08 06:00] VITALS: BP 126/80
--- NOTE | 2022-07-08 06:32 | NUR ---
Problems reprioritized. Patient report given, questions answered & plan of care reviewed with RUPALI ARGUETA. Addendum: 07/08/22 at 0632 by Missy Bell RN Amended: Links added.
[2022-07-08 06:49] LABS: BASOPHILS % (AUTO) 0.2 % (0-1); EOSINOPHILS # (AUTO) 0.1 X10'3 (0-0.9); EOSINOPHILS % (AUTO) 0.9 % (0-6); HEMATOCRIT 37.2 % (42.0-52.0); HEMOGLOBIN 12.8 g/dl (14.0-17.9); LYMPHOCYTES # (AUTO) 1.5 X10'3 (1.1-4.8); LYMPHOCYTES % (AUTO) 24.3 % (21-51); MEAN CORPUSCULAR HEMOGLOBIN 30.9 PG (27.0-31.0); MEAN CORPUSCULAR HGB CONC 34.4 g/dL (33.0-36.5); MEAN CORPUSCULAR VOLUME 89.9 FL (78-98); MEAN PLATELET VOLUME 8.2 FL (7.4-10.4); MONOCYTES # (AUTO) 0.4 X10'3 (0-0.9); MONOCYTES % (AUTO) 6.5 % (2-12); NEUTROPHILS # (AUTO) 4.2 X10'3 (1.8-7.7); NEUTROPHILS % (AUTO) 68.1 % (42-75); PLATELET COUNT 156 X10'3 (140-440); RED BLOOD COUNT 4.14 X10'6 (4.70-6.10); RED CELL DISTRIBUTION WIDTH 14.3 % (11.5-14.5); WHITE BLOOD COUNT 6.2 X10'3 (4.5-11.0)
[2022-07-08 06:56] LABS: ALANINE AMINOTRANSFERASE 15 U/L (12-78); ALBUMIN 3.7 G/DL (3.4-5.0); ALBUMIN/GLOBULIN RATIO 1.5 (1.1-1.5); ALKALINE PHOSPHATASE 54 IU/L (46-116); ANION GAP 11 (8-16); ASPARTATE AMINO TRANSFERASE 18 U/L (10-37); BILIRUBIN,TOTAL 0.9 MG/DL (0.1-1.0); BLOOD UREA NITROGEN 21 MG/DL (7-18); BUN/CREATININE RATIO 29.2 (5.4-32.0); CHLORIDE 104 MMOL/L (99-107); CHOL/HDL RATIO 3.5 (0.00-4.99); CHOLESTEROL 166 MG/DL (0-200); CREATININE 0.72 MG/DL (0.60-1.10); GLUCOSE 87 MG/DL (70-104); HDL CHOLESTEROL 47 MG/DL (35-60); LDL CHOLESTEROL 94 MG/DL (50-100); POTASSIUM 3.3 MMOL/L (3.5-5.1); SODIUM 140 MMOL/L (135-145); TOTAL CARBON DIOXIDE 24.7 MMOL/L (24-32); TOTAL PROTEIN 6.2 G/DL (6.4-8.2); TRIGLYCERIDES 79 MG/DL (20-135); eGFR > 90 ML/MIN
[2022-07-08] MEDS: pantoprazole 40mg Tablet.DR PO SCH (08:23)
[2022-07-08] MEDS: heparin, porcine 5000 units/ml vial SQ SCH ×2 (08:23→19:48)
[2022-07-08] MEDS: docusate sod 100mg capsule PO SCH ×2 (08:23→19:47)
[2022-07-08 10:00] VITALS: BP 115/74
--- NOTE | 2022-07-08 12:50 | NUR ---
promotional table spacer PAGER ID: [phone] MESSAGE: STACY CESPEDES RM 358A, NOT VOIDING BLADDER SCAN <600 ML. PLEASE ADVISE THANK YOU KENDALL ZAPIEN
--- NOTE | 2022-07-08 14:53 | NUR ---
Message: URGENT..RE STACY CESPEDES PLEASE CALL RE F/C THANK YOU KENDALL ZAPIEN Custom Responses: promotional table spacer
[2022-07-08] MEDS ORDERED: LIDOcaine 2% 10ml TOPICAL JELLY (Urojet) TP ONE (14:55)
--- NOTE | 2022-07-08 14:56 | NUR ---
UNABLE TO PLACE CHAUDHRY MOST LIKELY DUE TO ENLARGED PROSTATE, CHARGE QUAN ATTEMPTED X1 I ATTEMPTED X2. PAGED AWAITING RETURN CALL FOR ORDERS
--- NOTE | 2022-07-08 14:56 | NUR ---
promotional table spacer promotional table spacer Page Sent promotional table spacer PAGER ID: [phone] MESSAGE: URGENT RE STACY CESPEDES, PLEASE CALL RE F/C PLACEMENT THANKL YOU KENDALL ZAPIEN
--- NOTE | 2022-07-08 15:45 | NUR ---
DR MEEKS HAS CALLED BACK, HE SPOKE WITH DR JAMES WHO CALLED AN D REQUESTED THE UROLOGY CART, SHE WILL BE ARRIVING TO THE FLOOR TO RESOLVE THE ISSUE
[2022-07-08] MEDS ORDERED: GABA-530 PO (16:18)
[2022-07-08] MEDS ORDERED: HALO5TAB PO (16:18)
[2022-07-08] MEDS ORDERED: SERT25TA PO (16:18)
[2022-07-08] MEDS ORDERED: ONDA-103 PO (16:18)
[2022-07-08] MEDS ORDERED: LAMO100T2 PO (16:23)
[2022-07-08] MEDS ORDERED: BENZ2TAB7 PO (16:23)
[2022-07-08] MEDS ORDERED: NICO-731 TOP (16:29)
[2022-07-08] MEDS ORDERED: LANO454C3 TP (16:29)
[2022-07-08] MEDS ORDERED: NICO-503 PO (16:29)
[2022-07-08] MEDS ORDERED: RISP2TAB85 PO (16:30)
[2022-07-08] MEDS ORDERED: SERT-434 PO (16:33)
[2022-07-08 18:00] VITALS: BP 143/86
--- NOTE | 2022-07-08 18:47 | NUR ---
Patient in room [facility]. I have received report from RUPALI ARGUETA and had the opportunity to ask questions and assume patient care. Addendum: 07/08/22 at 1847 by Missy Bell RN Amended: Links added.
[2022-07-08] MEDS: tamsulosin 0.4mg capsule PO SCH (19:47)
[2022-07-08 20:07] LABS: CLARITY,URINE SLIGHTLY CLOUDY (Clear); COLOR,URINE YELLOW (Yellow); GLUCOSE, URINE NEGATIVE (Neg); KETONES,URINE 40 mg/dl (Neg); LEUKOCYTE ESTERASE ,URINE TRACE (Neg); NITRITES, URINE NEGATIVE (Neg); OCCULT BLOOD,URINE LARGE (Neg); PH,URINE 5.5 (4.8-8.0); PROTEIN,URINE 30 mg/dl (Neg)
[2022-07-08 20:13] LABS: BACTERIA,URINE 2+ /HPF (Neg); SQUAMOUS EPITHELIAL CELL,UR FEW /LPF (FEW); UA COLLECTION TYPE FOLEY CATH
[2022-07-08 20:25] LABS: URINE AMPHETAMINE SCREEN NEGATIVE (Neg); URINE BARBITUATE SCREEN NEGATIVE (Neg); URINE BENZODIAZEPINES SCREEN NEGATIVE (Neg); URINE CANNABINOID SCREEN NEGATIVE (Neg); URINE COCAINE SCREEN NEGATIVE (Neg); URINE METHADONE SCREEN NEGATIVE (Neg); URINE OPIATE SCREEN NEGATIVE (Neg); URINE PHENCYCLIDINE SCREEN NEGATIVE (Neg)
[2022-07-08 22:00] VITALS: BP 126/80
[2022-07-08] MEDS: CefTRIAXone/D5W-Rocephin 1gm 50 ML IV SCH (22:25)
--- NOTE | 2022-07-09 01:20 | NUR ---
PT AWOKE YANKED TELE, IV, OUT & CONDOM CATH OFF. NEW IV START RIGHT FOREARM 22, NEW CONDOM CATH APPLIED & TELE WITH LEADS REPLACED. COMPLETE BED CHANGE DONE, & NEW DRESSING TO RIGHT AC OLD IV SITE DONE. PT TOLERATED WELL COUGHED UP MED AMOUNT OF THICK SPUTUM YELLOW COLORED. NO S&S OF DISTRESS BUT VERY CONFUSED ATTEMPT WITHOUT SUCESS TO REORIENT PT. Addendum: 07/09/22 at 0233 by Missy Bell RN wrong pt this is on his roommate.
--- NOTE | 2022-07-09 02:31 | NUR ---
now resting eyes closed without changes was 40 minutes earlier awake and muttering after repositioning and confused.
[2022-07-09] MEDS: normal saline 1000ml 1,000 ML IV SCH ×3 (04:04→22:36)
--- NOTE | 2022-07-09 06:33 | NUR ---
Problems reprioritized. Patient report given, questions answered & plan of care reviewed with RUPALI OZUNA. Addendum: 07/09/22 at 0633 by Missy Bell RN Amended: Links added.
[2022-07-09 07:10] LABS: BASOPHILS % (AUTO) 0.3 % (0-1); EOSINOPHILS # (AUTO) 0.1 X10'3 (0-0.9); HEMATOCRIT 36.3 % (42.0-52.0); HEMOGLOBIN 12.6 g/dl (14.0-17.9); LYMPHOCYTES # (AUTO) 1.6 X10'3 (1.1-4.8); LYMPHOCYTES % (AUTO) 25.8 % (21-51); MEAN CORPUSCULAR HEMOGLOBIN 31.1 PG (27.0-31.0); MEAN CORPUSCULAR HGB CONC 34.6 g/dL (33.0-36.5); MEAN CORPUSCULAR VOLUME 89.7 FL (78-98); MEAN PLATELET VOLUME 8.7 FL (7.4-10.4); MONOCYTES # (AUTO) 0.5 X10'3 (0-0.9); MONOCYTES % (AUTO) 7.5 % (2-12); NEUTROPHILS % (AUTO) 65.4 % (42-75); PLATELET COUNT 149 X10'3 (140-440); RED BLOOD COUNT 4.05 X10'6 (4.70-6.10); RED CELL DISTRIBUTION WIDTH 13.9 % (11.5-14.5); WHITE BLOOD COUNT 6.1 X10'3 (4.5-11.0)
[2022-07-09 07:26] LABS: ALANINE AMINOTRANSFERASE 11 U/L (12-78); ALBUMIN 3.2 G/DL (3.4-5.0); ALBUMIN/GLOBULIN RATIO 1.4 (1.1-1.5); ALKALINE PHOSPHATASE 49 IU/L (46-116); ANION GAP 11 (8-16); ASPARTATE AMINO TRANSFERASE 14 U/L (10-37); BILIRUBIN,TOTAL 0.7 MG/DL (0.1-1.0); BLOOD UREA NITROGEN 16 MG/DL (7-18); BUN/CREATININE RATIO 22.9 (5.4-32.0); CALCIUM 8.3 MG/DL (8.5-10.1); CHLORIDE 106 MMOL/L (99-107); GLUCOSE 83 MG/DL (70-104); POTASSIUM 3.5 MMOL/L (3.5-5.1); SODIUM 141 MMOL/L (135-145); TOTAL CARBON DIOXIDE 23.8 MMOL/L (24-32); TOTAL PROTEIN 5.5 G/DL (6.4-8.2); eGFR > 90 ML/MIN
[2022-07-09] MEDS: pantoprazole 40mg Tablet.DR PO SCH (07:30)
[2022-07-09] MEDS: heparin, porcine 5000 units/ml vial SQ SCH ×2 (08:43→20:03)
[2022-07-09] MEDS: docusate sod 100mg capsule PO SCH ×2 (08:43→20:02)
[2022-07-09] MEDS: CefTRIAXone/D5W-Rocephin 1gm 50 ML IV SCH (08:43)
[2022-07-09 10:00] VITALS: BP 120/81
[2022-07-09 18:00] VITALS: BP 133/82
--- NOTE | 2022-07-09 18:46 | NUR ---
Patient in room [facility] 358. I have received report from RUPALI ARGUETA and had the opportunity to ask questions and assume patient care. Addendum: 07/09/22 at 1846 by Missy Bell RN Amended: Links added.
[2022-07-09] MEDS: tamsulosin 0.4mg capsule PO SCH (20:02)
[2022-07-09 22:00] VITALS: BP 118/73
--- NOTE | 2022-07-10 05:00 | NUR ---
pt repositioned resting given sips of water per request.
[2022-07-10 06:07] LABS: ALANINE AMINOTRANSFERASE 10 U/L (12-78); ALBUMIN 2.9 G/DL (3.4-5.0); ALBUMIN/GLOBULIN RATIO 1.3 (1.1-1.5); ALKALINE PHOSPHATASE 45 IU/L (46-116); ANION GAP 11 (8-16); ASPARTATE AMINO TRANSFERASE 13 U/L (10-37); BILIRUBIN,TOTAL 0.5 MG/DL (0.1-1.0); BLOOD UREA NITROGEN 13 MG/DL (7-18); BUN/CREATININE RATIO 19.7 (5.4-32.0); CALCIUM 7.9 MG/DL (8.5-10.1); CHLORIDE 106 MMOL/L (99-107); CREATININE 0.66 MG/DL (0.60-1.10); GLUCOSE 86 MG/DL (70-104); POTASSIUM 3.2 MMOL/L (3.5-5.1); SODIUM 140 MMOL/L (135-145); TOTAL CARBON DIOXIDE 22.9 MMOL/L (24-32); TOTAL PROTEIN 5.2 G/DL (6.4-8.2); eGFR > 90 ML/MIN
[2022-07-10 06:17] LABS: BASOPHILS % (AUTO) 0.4 % (0-1); EOSINOPHILS # (AUTO) 0.2 X10'3 (0-0.9); EOSINOPHILS % (AUTO) 3.6 % (0-6); HEMATOCRIT 33.3 % (42.0-52.0); HEMOGLOBIN 11.6 g/dl (14.0-17.9); LYMPHOCYTES # (AUTO) 1.4 X10'3 (1.1-4.8); LYMPHOCYTES % (AUTO) 32.5 % (21-51); MEAN CORPUSCULAR HEMOGLOBIN 31.1 PG (27.0-31.0); MEAN CORPUSCULAR HGB CONC 34.7 g/dL (33.0-36.5); MEAN CORPUSCULAR VOLUME 89.6 FL (78-98); MEAN PLATELET VOLUME 8.8 FL (7.4-10.4); MONOCYTES # (AUTO) 0.4 X10'3 (0-0.9); MONOCYTES % (AUTO) 8.6 % (2-12); NEUTROPHILS # (AUTO) 2.4 X10'3 (1.8-7.7); NEUTROPHILS % (AUTO) 54.9 % (42-75); PLATELET COUNT 126 X10'3 (140-440); RED BLOOD COUNT 3.72 X10'6 (4.70-6.10); RED CELL DISTRIBUTION WIDTH 14.4 % (11.5-14.5); WHITE BLOOD COUNT 4.4 X10'3 (4.5-11.0)
--- NOTE | 2022-07-10 06:18 | NUR ---
Problems reprioritized. Patient report given, questions answered & plan of care reviewed with RUPALI MAS. Addendum: 07/10/22 at 0618 by Missy Bell RN Amended: Links added.
--- NOTE | 2022-07-10 06:39 | NUR ---
Patient in room [facility] 358. I have received report from suman ZAPIEN and had the opportunity to ask questions and assume patient care.
[2022-07-10 08:00] VITALS: BP 124/82
[2022-07-10] MEDS: CefTRIAXone/D5W-Rocephin 1gm 50 ML IV SCH (09:05)
[2022-07-10] MEDS: pantoprazole 40mg Tablet.DR PO SCH (09:06)
[2022-07-10] MEDS: docusate sod 100mg capsule PO SCH ×2 (09:06→21:08)
[2022-07-10] MEDS: heparin, porcine 5000 units/ml vial SQ SCH ×2 (09:07→21:08)
[2022-07-10] MEDS ORDERED: magnesium Cl slow-release 64mg tablet PO PRN (10:10)
[2022-07-10] MEDS ORDERED: potassium Cl 40MEQ/1/2NS 520ml 520 ML IV PRN (10:10)
[2022-07-10] MEDS ORDERED: potassium Cl 20 mEq SR tablet PO PRN (10:10)
[2022-07-10] MEDS ORDERED: magnesium 4gm in 100ml NS 100 ML IV PRN (10:10)
[2022-07-10] MEDS: potassium Cl 20 mEq SR tablet PO PRN ×2 (11:34→21:16)
--- NOTE | 2022-07-10 13:47 | NUR ---
Received order for consult. I did not meet with patient. Not an appropriate referral.
[2022-07-10] MEDS: normal saline 1000ml 1,000 ML IV SCH ×3 (14:34→22:49)
[2022-07-10 18:00] VITALS: BP 130/84
--- NOTE | 2022-07-10 18:20 | NUR ---
Patient in room [facility] 358. I have received report from RUPALI Peck and had the opportunity to ask questions and assume patient care.
--- NOTE | 2022-07-10 18:23 | NUR ---
patient responsive to verbal stimuli answering questions appropriately, large loose BM, eating well 75% of tray x2 meals. Seen by Dr Ceballos. report given to Julia ZAPIEN
[2022-07-10] MEDS: K and/or MAG REPLACEMENT MC SCH (20:00)
[2022-07-10] MEDS: mineral oil/petrolatum, white cream 60gm jar TP SCH (21:07)
[2022-07-10] MEDS: tamsulosin 0.4mg capsule PO SCH (21:08)
[2022-07-10 22:00] VITALS: BP 144/94
[2022-07-11] MEDS: potassium Cl 20 mEq SR tablet PO PRN (04:27)
--- NOTE | 2022-07-11 06:26 | NUR ---
Patient in room [facility] 358. I have received report from Julia ZAPIEN and had the opportunity to ask questions and assume patient care.
--- NOTE | 2022-07-11 06:30 | NUR ---
Problems reprioritized. Patient report given, questions answered & plan of care reviewed with RUPALI Peck.
[2022-07-11 06:44] LABS: BASOPHILS % (AUTO) 0.3 % (0-1); EOSINOPHILS # (AUTO) 0.2 X10'3 (0-0.9); EOSINOPHILS % (AUTO) 3.6 % (0-6); HEMATOCRIT 33.9 % (42.0-52.0); HEMOGLOBIN 11.8 g/dl (14.0-17.9); LYMPHOCYTES # (AUTO) 1.2 X10'3 (1.1-4.8); LYMPHOCYTES % (AUTO) 21.9 % (21-51); MEAN CORPUSCULAR HEMOGLOBIN 31.1 PG (27.0-31.0); MEAN CORPUSCULAR HGB CONC 34.8 g/dL (33.0-36.5); MEAN CORPUSCULAR VOLUME 89.3 FL (78-98); MEAN PLATELET VOLUME 8.3 FL (7.4-10.4); MONOCYTES # (AUTO) 0.4 X10'3 (0-0.9); MONOCYTES % (AUTO) 6.9 % (2-12); NEUTROPHILS # (AUTO) 3.8 X10'3 (1.8-7.7); NEUTROPHILS % (AUTO) 67.3 % (42-75); PLATELET COUNT 119 X10'3 (140-440); RED CELL DISTRIBUTION WIDTH 14.2 % (11.5-14.5); WHITE BLOOD COUNT 5.7 X10'3 (4.5-11.0)
[2022-07-11 07:00] VITALS: BP 127/81
[2022-07-11 07:44] LABS: ALANINE AMINOTRANSFERASE 12 U/L (12-78); ALBUMIN 2.9 G/DL (3.4-5.0); ALBUMIN/GLOBULIN RATIO 1.1 (1.1-1.5); ALKALINE PHOSPHATASE 50 IU/L (46-116); ANION GAP 9 (8-16); ASPARTATE AMINO TRANSFERASE 12 U/L (10-37); BILIRUBIN,TOTAL 0.5 MG/DL (0.1-1.0); BLOOD UREA NITROGEN 9 MG/DL (7-18); BUN/CREATININE RATIO 15.8 (5.4-32.0); CALCIUM 8.1 MG/DL (8.5-10.1); CHLORIDE 106 MMOL/L (99-107); CREATININE 0.57 MG/DL (0.60-1.10); GLUCOSE 99 MG/DL (70-104); MAGNESIUM 1.8 MG/DL (1.5-2.4); POTASSIUM 3.6 MMOL/L (3.5-5.1); SODIUM 138 MMOL/L (135-145); TOTAL CARBON DIOXIDE 22.9 MMOL/L (24-32); TOTAL PROTEIN 5.6 G/DL (6.4-8.2); eGFR > 90 ML/MIN
[2022-07-11] MEDS: K and/or MAG REPLACEMENT MC SCH ×2 (08:00→20:00)
[2022-07-11] MEDS: docusate sod 100mg capsule PO SCH ×2 (08:00→20:00)
[2022-07-11] MEDS: CefTRIAXone/D5W-Rocephin 1gm 50 ML IV SCH (08:03)
[2022-07-11] MEDS: pantoprazole 40mg Tablet.DR PO SCH (08:03)
[2022-07-11] MEDS: heparin, porcine 5000 units/ml vial SQ SCH ×2 (08:03→20:59)
[2022-07-11] MEDS: mineral oil/petrolatum, white cream 60gm jar TP SCH ×2 (08:04→20:59)
--- NOTE | 2022-07-11 09:51 | NUR ---
Initial: pt admitted w/ metabolic encephalopathy and urinary outlet obstruction per EMR. Currently on MM5 diet per SEAFOOD CLERK recs, avg intake 38% of meals not meeting needs. Documented as A&O x 2 and confused, total assist w/ meals. Recommend Ensure Plus HP TID to assist w/ meeting est needs. LBM 07/10 receiving routine colace. Will continue to monitor. Recs; 1. Continue MM5 diet per SEAFOOD CLERK recs 2. Ensure Plus HP TID; pending MD verification 3. Bowel care per rx 4. Scaled wts Addendum: 07/11/22 at [address] Amended: Links added.
[2022-07-11 11:00] VITALS: BP 126/78
--- NOTE | 2022-07-11 18:30 | NUR ---
Patient in room [facility] 358. I have received report from RUPALI Peck and had the opportunity to ask questions and assume patient care.
--- NOTE | 2022-07-11 18:42 | NUR ---
patient ambulated 300ft with PT. Seen by DR Ceballos. All cares given. Social service consult placed. report given to Julia ZAPIEN
[2022-07-11] MEDS: normal saline 1000ml 1,000 ML IV SCH (19:14)
[2022-07-11] MEDS: tamsulosin 0.4mg capsule PO SCH (20:58)
[2022-07-11] MEDS: HYDROcodone/acetaminophen 5mg/325mg tablet PO PRN (20:59)
[2022-07-11 22:00] VITALS: BP 127/84
[2022-07-12] MEDS: normal saline 1000ml 1,000 ML IV SCH ×2 (04:27→15:13)
[2022-07-12 06:00] VITALS: BP 113/68
--- NOTE | 2022-07-12 06:20 | NUR ---
Patient in room [facility] 358. I have received report from Julia ZAPIEN and had the opportunity to ask questions and assume patient care.
--- NOTE | 2022-07-12 06:25 | NUR ---
Problems reprioritized. Patient report given, questions answered & plan of care reviewed with COURT Tolbert.
[2022-07-12 06:47] LABS: BASOPHILS % (AUTO) 0.2 % (0-1); EOSINOPHILS # (AUTO) 0.2 X10'3 (0-0.9); EOSINOPHILS % (AUTO) 4.5 % (0-6); HEMATOCRIT 33.6 % (42.0-52.0); HEMOGLOBIN 11.7 g/dl (14.0-17.9); LYMPHOCYTES # (AUTO) 1.3 X10'3 (1.1-4.8); LYMPHOCYTES % (AUTO) 24.2 % (21-51); MEAN CORPUSCULAR HEMOGLOBIN 31.1 PG (27.0-31.0); MEAN CORPUSCULAR HGB CONC 34.8 g/dL (33.0-36.5); MEAN CORPUSCULAR VOLUME 89.3 FL (78-98); MEAN PLATELET VOLUME 8.6 FL (7.4-10.4); MONOCYTES # (AUTO) 0.4 X10'3 (0-0.9); MONOCYTES % (AUTO) 7.1 % (2-12); NEUTROPHILS # (AUTO) 3.4 X10'3 (1.8-7.7); PLATELET COUNT 119 X10'3 (140-440); RED BLOOD COUNT 3.77 X10'6 (4.70-6.10); RED CELL DISTRIBUTION WIDTH 14.2 % (11.5-14.5); WHITE BLOOD COUNT 5.3 X10'3 (4.5-11.0)
[2022-07-12 07:11] LABS: ALANINE AMINOTRANSFERASE 10 U/L (12-78); ALBUMIN 2.8 G/DL (3.4-5.0); ALBUMIN/GLOBULIN RATIO 1.2 (1.1-1.5); ALKALINE PHOSPHATASE 48 IU/L (46-116); ANION GAP 7 (8-16); ASPARTATE AMINO TRANSFERASE 12 U/L (10-37); BILIRUBIN,TOTAL 0.4 MG/DL (0.1-1.0); BLOOD UREA NITROGEN 10 MG/DL (7-18); BUN/CREATININE RATIO 14.9 (5.4-32.0); CALCIUM 7.8 MG/DL (8.5-10.1); CHLORIDE 106 MMOL/L (99-107); CREATININE 0.67 MG/DL (0.60-1.10); GLUCOSE 89 MG/DL (70-104); POTASSIUM 3.4 MMOL/L (3.5-5.1); SODIUM 139 MMOL/L (135-145); TOTAL CARBON DIOXIDE 25.6 MMOL/L (24-32); TOTAL PROTEIN 5.2 G/DL (6.4-8.2); eGFR > 90 ML/MIN
[2022-07-12] MEDS: docusate sod 100mg capsule PO SCH ×2 (08:00→20:00)
[2022-07-12] MEDS: CefTRIAXone/D5W-Rocephin 1gm 50 ML IV SCH (08:02)
[2022-07-12] MEDS: K and/or MAG REPLACEMENT MC SCH ×2 (08:41→20:00)
[2022-07-12] MEDS: mineral oil/petrolatum, white cream 60gm jar TP SCH ×2 (08:42→20:19)
[2022-07-12] MEDS: pantoprazole 40mg Tablet.DR PO SCH (08:44)
[2022-07-12] MEDS: heparin, porcine 5000 units/ml vial SQ SCH ×2 (08:47→20:20)
[2022-07-12] MEDS: potassium Cl 20 mEq SR tablet PO PRN ×3 (08:49→20:20)
[2022-07-12 10:00] VITALS: BP 116/69
[2022-07-12 18:00] VITALS: BP 125/88
--- NOTE | 2022-07-12 18:25 | NUR ---
Patient in room [facility]. I have received report from COURT Tolbert and had the opportunity to ask questions and assume patient care.
--- NOTE | 2022-07-12 18:52 | NUR ---
Problems reprioritized. Patient report given, questions answered & plan of care reviewed with Julia ZAPIEN.
[2022-07-12] MEDS ORDERED: paliperidone palmitate 156 mg/ml inj.**IM only IM ONE (18:55)
--- NOTE | 2022-07-12 18:57 | NUR ---
CAMERA SYSTEMS ENGINEER documentation: I have reviewed and agree with all interventions, assessments performed and documented by Didi Gregg LVN.
[2022-07-12] MEDS: temazepam 15mg capsule PO PRN (20:19)
[2022-07-12] MEDS: tamsulosin 0.4mg capsule PO SCH (20:20)
[2022-07-12 22:00] VITALS: BP 143/88
[2022-07-13] MEDS: normal saline 1000ml 1,000 ML IV SCH ×2 (00:15→01:17)
[2022-07-13 06:00] VITALS: BP 107/68
--- NOTE | 2022-07-13 06:20 | NUR ---
Patient in room [facility] 358. I have received report from Julia ZAPIEN and had the opportunity to ask questions and assume patient care.
--- NOTE | 2022-07-13 06:37 | NUR ---
Problems reprioritized. Patient report given, questions answered & plan of care reviewed with COURT Tolbert.
[2022-07-13 07:23] LABS: POTASSIUM 3.5 MMOL/L (3.5-5.1)
[2022-07-13] MEDS: mineral oil/petrolatum, white cream 60gm jar TP SCH ×2 (08:00→20:10)
[2022-07-13] MEDS: docusate sod 100mg capsule PO SCH ×2 (08:00→19:55)
[2022-07-13] MEDS: K and/or MAG REPLACEMENT MC SCH ×2 (08:00→19:55)
[2022-07-13] MEDS: CefTRIAXone/D5W-Rocephin 1gm 50 ML IV SCH (08:06)
[2022-07-13] MEDS: pantoprazole 40mg Tablet.DR PO SCH (08:40)
[2022-07-13] MEDS: heparin, porcine 5000 units/ml vial SQ SCH ×2 (08:41→20:03)
--- NOTE | 2022-07-13 11:00 | NUR ---
Patient in room [facility] 358. I have received report from Kristine ZAPIEN and had the opportunity to ask questions and assume patient care. Addendum: 07/13/22 at 1650 by Didi Gregg LVN Siddhartha
[2022-07-13 11:35] VITALS: BP 115/73
[2022-07-13 18:00] VITALS: BP 144/90
--- NOTE | 2022-07-13 18:00 | NUR ---
I have reviewed and agree with all interventions, assessments performed, and documention by Didi Becker LVN.
[2022-07-13] MEDS: tamsulosin 0.4mg capsule PO SCH (20:03)
[2022-07-13] MEDS: temazepam 15mg capsule PO PRN (20:09)
[2022-07-13 22:00] VITALS: BP 125/79
--- NOTE | 2022-07-14 03:10 | NUR ---
REVIEWED LEATHER CRAFTER ASSESSMENTS AND IN AGREEMENT.
[2022-07-14 06:00] VITALS: BP 123/80
--- NOTE | 2022-07-14 06:36 | NUR ---
Problems reprioritized. Patient report given, questions answered & plan of care reviewed with Susan ZAPIEN.
--- NOTE | 2022-07-14 06:51 | NUR ---
Patient in room [facility] 358. I have received report from Maria and had the opportunity to ask questions and assume patient care.
[2022-07-14 07:34] LABS: MAGNESIUM 2.1 MG/DL (1.5-2.4); POTASSIUM 3.3 MMOL/L (3.5-5.1)
[2022-07-14] MEDS: K and/or MAG REPLACEMENT MC SCH ×2 (07:52→20:00)
--- NOTE | 2022-07-14 08:00 | NUR ---
PAGER ID: [phone] MESSAGE: Anatoliy Menchaca in 358A - pt potassium is 3.3. Do you want to order replacement-Rani [id number]
[2022-07-14] MEDS ORDERED: POTASSIUM BICARB 20meq eff tab 20 MEQ TABLET.EFF PO ONE (08:05)
[2022-07-14] MEDS: pantoprazole 40mg Tablet.DR PO SCH (08:09)
[2022-07-14] MEDS: heparin, porcine 5000 units/ml vial SQ SCH ×2 (08:10→21:07)
[2022-07-14] MEDS: docusate sod 100mg capsule PO SCH ×2 (08:10→21:09)
[2022-07-14] MEDS: CefTRIAXone/D5W-Rocephin 1gm 50 ML IV SCH (08:10)
[2022-07-14] MEDS: mineral oil/petrolatum, white cream 60gm jar TP SCH (08:10)
--- NOTE | 2022-07-14 09:44 | NUR ---
Reassessment: Per EMR pt A/O x 3 and confused. Per wound care note (07/13) pt with a stage II PU to sacrum. Pt continues on MM5 diet with thin liquids per ST recs and PO intake has significantly improved, documented with mostly 75-100% PO intake since 07/11 while receiving total assistance with meals. ONS still pending physician approval in EMR however may no longer be indicated if pt continues with current trends in meal PO intake as pt currently meeting estimated nutrient needs. LBM 07/12, receiving routine bowel care. No nutrition intervention implemented at this time. Will continue to follow. Recommendations: 1. Continue MM5 diet per MEDICAL TECHNICAL WRITER recs; total assist with meals 2. Ensure Plus HP TID, pending MD verification- may no longer be indicated given improved PO intake of meals; monitor need for Ulises ONS BID to assist with wound healing 3. Routine bowel care 4. Scaled wt this admit; subsequent weekly scaled weights Addendum: 07/14/22 at [address] Amended: Links added.
[2022-07-14 10:00] VITALS: BP 90/47
[2022-07-14] MEDS: normal saline 1000ml 1,000 ML IV SCH (10:47)
[2022-07-14 18:30] VITALS: BP 99/48
[2022-07-14] MEDS: tamsulosin 0.4mg capsule PO SCH (21:08)
[2022-07-14] MEDS: temazepam 15mg capsule PO PRN (21:09)
[2022-07-14 22:30] VITALS: BP 117/70
[2022-07-15] MEDS: normal saline 1000ml 1,000 ML IV SCH ×3 (00:15→19:55)
[2022-07-15] MEDS: mineral oil/petrolatum, white cream 60gm jar TP SCH ×3 (00:33→20:13)
[2022-07-15] MEDS: nystatin 500,000 unit/5ML UD oral suspension PO SCH ×4 (00:33→19:45)
[2022-07-15 05:49] VITALS: BP_SYST 133; BP_SYST 94; BP_DIAS 39; BP_DIAS 85
--- NOTE | 2022-07-15 05:49 | NUR ---
pt b/p reading low when tech took it, pt lying on side, retaken on right arm b/p 133/94 hr 85 Addendum: 07/15/22 at 0551 by Babs Hough RN Amended: Links added.
[2022-07-15 06:00] VITALS: BP 94/39
--- NOTE | 2022-07-15 06:26 | NUR ---
Problems reprioritized. Patient report given, questions answered & plan of care reviewed with RUPALI Saravia. Addendum: 07/15/22 at 0627 by Babs Hough RN Amended: Links added.
--- NOTE | 2022-07-15 06:34 | NUR ---
Patient in room [facility] 358. I have received report from Nu and had the opportunity to ask questions and assume patient care.
[2022-07-15] MEDS: K and/or MAG REPLACEMENT MC SCH ×2 (06:53→20:00)
[2022-07-15] MEDS: CefTRIAXone/D5W-Rocephin 1gm 50 ML IV SCH (08:19)
[2022-07-15] MEDS: pantoprazole 40mg Tablet.DR PO SCH (08:19)
[2022-07-15] MEDS: heparin, porcine 5000 units/ml vial SQ SCH ×2 (08:19→19:45)
[2022-07-15] MEDS: docusate sod 100mg capsule PO SCH ×2 (08:19→19:45)
[2022-07-15 09:30] VITALS: BP 120/83
[2022-07-15 10:00] VITALS: BP 120/83
[2022-07-15] MEDS ORDERED: FLO0.4C PO (10:40)
[2022-07-15 18:00] VITALS: BP 148/82
--- NOTE | 2022-07-15 18:50 | NUR ---
Patient in room [facility] 358. I have received report from RUPALI FRANCO and had the opportunity to ask questions and assume patient care. Addendum: 07/15/22 at 1850 by Missy Bell RN Amended: Links added.
[2022-07-15] MEDS: tamsulosin 0.4mg capsule PO SCH (19:45)
[2022-07-15] MEDS: temazepam 15mg capsule PO PRN (19:45)
[2022-07-15 22:00] VITALS: BP 95/63
[2022-07-15] MEDS ORDERED: potassium Cl 40MEQ/1/2NS 520ml 520 ML IV PRN (22:50)
[2022-07-15] MEDS ORDERED: potassium Cl 20 mEq SR tablet PO PRN ×2 (22:50)
[2022-07-15] MEDS ORDERED: magnesium 4gm in 100ml NS 100 ML IV PRN (22:50)
[2022-07-15] MEDS ORDERED: magnesium Cl slow-release 64mg tablet PO PRN (22:50)
[2022-07-15] MEDS ORDERED: nystatin 500,000 unit/5ML UD oral suspension PO SCH (23:00)
[2022-07-15] MEDS: HYDROcodone/acetaminophen 5mg/325mg tablet PO PRN (23:10)
--- NOTE | 2022-07-15 23:10 | NUR ---
MEDICATED FOR COMPLAINT OF BACK AND URETHRAL PAIN WITH CHAUDHRY. CHAUDHRY REPOSITIONED TO COMFORT AND PT MEDICATED FOR THE PAIN per request.
[2022-07-16 06:00] VITALS: BP 97/63
[2022-07-16 06:22] LABS: MAGNESIUM 2.2 MG/DL (1.5-2.4); POTASSIUM 3.9 MMOL/L (3.5-5.1)
--- NOTE | 2022-07-16 06:30 | NUR ---
Patient in room [facility] 358. I have received report from Missy ZAPIEN and had the opportunity to ask questions and assume patient care.
--- NOTE | 2022-07-16 06:39 | NUR ---
Problems reprioritized. Patient report given, questions answered & plan of care reviewed with RUPALI GANDHI. Addendum: 07/16/22 at 0639 by Missy Bell RN Amended: Links added.
[2022-07-16] MEDS: mineral oil/petrolatum, white cream 60gm jar TP SCH ×2 (08:00→20:21)
[2022-07-16] MEDS: K and/or MAG REPLACEMENT MC SCH ×4 (08:00→19:52)
[2022-07-16] MEDS: nystatin 500,000 unit/5ML UD oral suspension PO SCH ×3 (09:01→20:16)
[2022-07-16] MEDS: docusate sod 100mg capsule PO SCH ×2 (09:02→20:16)
[2022-07-16] MEDS: pantoprazole 40mg Tablet.DR PO SCH (09:02)
[2022-07-16] MEDS: heparin, porcine 5000 units/ml vial SQ SCH ×2 (09:03→20:17)
[2022-07-16 10:10] VITALS: BP 119/77
[2022-07-16] MEDS: magnesium hydroxide 30ml (MOM) UD suspension PO PRN (14:30)
--- NOTE | 2022-07-16 14:42 | NUR ---
Patient was complaining of penis pain where the cath is inserted and of gas pains. Patient states that the pain is intermitted and at a [address] Coley was paged and called back. Was advised to give MOM and monitor spasms.
[2022-07-16 18:00] VITALS: BP 137/94
--- NOTE | 2022-07-16 18:07 | NUR ---
DRYLAND FARMER documentation: I have reviewed and agree with all interventions, assessments performed and documented by Didi Gregg LVN .
--- NOTE | 2022-07-16 18:24 | NUR ---
Problems reprioritized. Patient report given, questions answered & plan of care reviewed with Paulina ZAPIEN.
--- NOTE | 2022-07-16 20:00 | NUR ---
Wound care pictures taken by previous nightshift nurse and placed in chart. Addendum: 07/17/22 at 0203 by Leeanne Seth RN Amended: Links added.
[2022-07-16] MEDS: normal saline 1000ml 1,000 ML IV SCH (20:16)
[2022-07-16] MEDS: tamsulosin 0.4mg capsule PO SCH (20:16)
[2022-07-16] MEDS: temazepam 15mg capsule PO PRN (20:23)
[2022-07-16 22:00] VITALS: BP 95/58
[2022-07-17] MEDS: HYDROcodone/acetaminophen 5mg/325mg tablet PO PRN ×2 (01:58→20:29)
[2022-07-17] MEDS: normal saline 1000ml 1,000 ML IV SCH ×4 (05:41→23:18)
[2022-07-17 06:00] VITALS: BP 113/77
[2022-07-17 06:13] LABS: MAGNESIUM 2.4 MG/DL (1.5-2.4); POTASSIUM 3.8 MMOL/L (3.5-5.1)
--- NOTE | 2022-07-17 06:35 | NUR ---
RECEIVED REPORT FROM RUPALI SHAY
[2022-07-17] MEDS: K and/or MAG REPLACEMENT MC SCH ×4 (07:12→20:00)
[2022-07-17] MEDS: docusate sod 100mg capsule PO SCH ×2 (07:21→20:28)
[2022-07-17] MEDS: pantoprazole 40mg Tablet.DR PO SCH (07:21)
[2022-07-17] MEDS: nystatin 500,000 unit/5ML UD oral suspension PO SCH (07:21)
[2022-07-17] MEDS: heparin, porcine 5000 units/ml vial SQ SCH ×2 (07:24→20:29)
[2022-07-17] MEDS: mineral oil/petrolatum, white cream 60gm jar TP SCH ×2 (07:27→20:29)
[2022-07-17] MEDS ORDERED: fluconazole 100mg tablet PO ONE (07:50)
[2022-07-17 10:00] VITALS: BP 105/59
[2022-07-17 18:00] VITALS: BP 117/61
--- NOTE | 2022-07-17 18:08 | NUR ---
gave report to october,
[2022-07-17] MEDS: tamsulosin 0.4mg capsule PO SCH (20:28)
[2022-07-17 22:00] VITALS: BP 91/58
[2022-07-18] MEDS: HYDROcodone/acetaminophen 5mg/325mg tablet PO PRN (01:35)
[2022-07-18 06:00] VITALS: BP 99/73
[2022-07-18] MEDS: pantoprazole 40mg Tablet.DR PO SCH (07:58)
[2022-07-18] MEDS: fluconazole 100mg tablet PO SCH (07:58)
[2022-07-18] MEDS: heparin, porcine 5000 units/ml vial SQ SCH ×2 (07:58→20:06)
[2022-07-18] MEDS: docusate sod 100mg capsule PO SCH ×2 (07:58→20:06)
[2022-07-18] MEDS: K and/or MAG REPLACEMENT MC SCH ×3 (08:00→20:00)
[2022-07-18] MEDS: mineral oil/petrolatum, white cream 60gm jar TP SCH ×2 (08:00→20:06)
[2022-07-18 09:09] LABS: MAGNESIUM 2.2 MG/DL (1.5-2.4); POTASSIUM 3.6 MMOL/L (3.5-5.1)
[2022-07-18 11:00] VITALS: BP 92/56
[2022-07-18] MEDS: normal saline 1000ml 1,000 ML IV SCH (17:55)
[2022-07-18 18:30] VITALS: BP 153/99
--- NOTE | 2022-07-18 19:17 | NUR ---
SPOKE WITH SISTER, TADEO [phone], SHE FEELS PATIENT HAS BEEN DECLINING FOR A WHILE AND THINKS PLACEMENT MAY BE BEST FOR HIM. IF POSSIBLE SHE LIKE TO HAVE HIM PLACED IN THE RJ AREA, BEST WOULD BE STEPHEN, DEBRA OR RYE
[2022-07-18] MEDS: tamsulosin 0.4mg capsule PO SCH (20:06)
[2022-07-18] MEDS: temazepam 15mg capsule PO PRN (20:06)
[2022-07-18 22:00] VITALS: BP 96/60
[2022-07-19] MEDS: normal saline 1000ml 1,000 ML IV SCH ×3 (03:55→17:40)
[2022-07-19 06:00] VITALS: BP 102/67
[2022-07-19 06:51] LABS: MAGNESIUM 1.9 MG/DL (1.5-2.4); POTASSIUM 3.6 MMOL/L (3.5-5.1)
[2022-07-19] MEDS: K and/or MAG REPLACEMENT MC SCH ×2 (08:00→20:00)
[2022-07-19] MEDS: fluconazole 100mg tablet PO SCH (09:58)
[2022-07-19] MEDS: docusate sod 100mg capsule PO SCH ×2 (09:58→20:08)
[2022-07-19] MEDS: pantoprazole 40mg Tablet.DR PO SCH (09:58)
[2022-07-19 10:00] VITALS: BP 96/55
[2022-07-19] MEDS: heparin, porcine 5000 units/ml vial SQ SCH ×2 (10:00→20:08)
[2022-07-19] MEDS: mineral oil/petrolatum, white cream 60gm jar TP SCH ×2 (10:00→20:07)
--- NOTE | 2022-07-19 13:18 | NUR ---
Reassessment: PO intake fluctuates, documented with 25-50% PO intake at times however overall mostly with 75-100% PO intake, eating well. LBM 07/17. No nutrition intervention implemented at this time. Will continue to follow. Recommendations: 1. Continue MM5 diet per HOSPITAL INTERNSHIP recs; total assist with meals 2. Ensure Plus HP TID, pending MD verification- may no longer be indicated given improved PO intake of meals; monitor need for Ulises ONS BID to assist with wound healing 3. Routine bowel care 4. Scaled wt this admit; subsequent weekly scaled weights Addendum: 07/19/22 at [address] Amended: Links added.
[2022-07-19 18:00] VITALS: BP 117/80
[2022-07-19] MEDS: tamsulosin 0.4mg capsule PO SCH (20:08)
[2022-07-19] MEDS: temazepam 15mg capsule PO PRN (20:08)
[2022-07-19 22:00] VITALS: BP 130/88
[2022-07-20] MEDS: normal saline 1000ml 1,000 ML IV SCH ×2 (01:47→14:27)
--- NOTE | 2022-07-20 06:35 | NUR ---
Patient in room [facility] 358. I have received report from October and had the opportunity to ask questions and assume patient care.
[2022-07-20 06:37] VITALS: BP 141/76
[2022-07-20] MEDS: K and/or MAG REPLACEMENT MC SCH ×2 (07:06→20:00)
[2022-07-20] MEDS: pantoprazole 40mg Tablet.DR PO SCH (07:58)
[2022-07-20] MEDS: docusate sod 100mg capsule PO SCH ×2 (07:58→20:28)
[2022-07-20] MEDS: heparin, porcine 5000 units/ml vial SQ SCH ×2 (07:58→20:27)
[2022-07-20] MEDS: fluconazole 100mg tablet PO SCH (07:58)
[2022-07-20] MEDS: mineral oil/petrolatum, white cream 60gm jar TP SCH ×2 (07:59→20:28)
[2022-07-20 10:53] VITALS: BP 113/66
--- NOTE | 2022-07-20 15:14 | NUR ---
PRESSURE ULCER EDUCATION: DEFINITION: A pressure ulcer is an area of skin that breaks down when you stay in one position too long. The constant pressure against the skin reduces the blood flow to that area and the affected tissue dies. CAUSES: "Being bedridden or in a wheelchair "Fragile skin "Having a chronic condition, such as diabetes or vascular disease "Inability to move certain parts of your body without assistance "Older age "Incontinence of urine or stool SYMPTOMS: "A reddened area that DOES NOT turn white when pressed on - this can be the beginning of a pressure ulcer "A blister, deep sore or a crater - these can be advanced pressure ulcers FIRST AID: "Relieve the pressure on this area "Keep the area clean and dry "Call your primary doctor if you see any of the above symptoms "DO NOT massage the area "DO NOT use a donut shaped or ring shaped pillow- these actually interfere with the blood flow and cause complications PREVENTION: "Check for pressure ulcers everyday "Change position at least every two hours to relieve pressure "Use items that help relieve pressure- pillows, sheepskin, foam padding, and powders. "Keep skin clean and dry "Eat healthy well balanced meals "Exercise daily IF YOU SEE ANY OF THESE SYMPTOMS WHILE IN THE HOSPITAL - TELL YOUR NURSE IMMEDIATELY. IF YOU SEE ANY OF THESE SYMPTOMS WHILE AT HOME OR HAVE ANY QUESTIONS OR CONCERNS ABOUT PRESSURE ULCERS - CALL YOUR PRIMARY DOCTOR IMMEDIATELY. Addendum: 07/20/22 at 1514 by Toshia Potter LVN Amended: Links added.
[2022-07-20 18:30] VITALS: BP 101/68
--- NOTE | 2022-07-20 18:30 | NUR ---
Patient in room [facility] 358. I have received report from RUPALI Saravia and had the opportunity to ask questions and assume patient care. Addendum: 07/20/22 at 2334 by Babs Hough RN Amended: Links added.
--- NOTE | 2022-07-20 18:34 | NUR ---
Problems reprioritized. Patient report given, questions answered & plan of care reviewed with Nu.
[2022-07-20] MEDS: tamsulosin 0.4mg capsule PO SCH (20:28)
[2022-07-20] MEDS: temazepam 15mg capsule PO PRN (20:28)
[2022-07-20 22:00] VITALS: BP 109/66
[2022-07-21] MEDS: normal saline 1000ml 1,000 ML IV SCH ×3 (00:54→20:06)
--- NOTE | 2022-07-21 06:25 | NUR ---
Problems reprioritized. Patient report given, questions answered & plan of care reviewed with RUPALI Mcrae. Addendum: 07/21/22 at 0627 by Babs Hough RN Amended: Links added.
--- NOTE | 2022-07-21 06:30 | NUR ---
Problems reprioritized. Patient report given, questions answered & plan of care reviewed with Nu Mena.
[2022-07-21 07:15] VITALS: BP 101/74
[2022-07-21] MEDS: K and/or MAG REPLACEMENT MC SCH ×2 (08:00→18:46)
[2022-07-21] MEDS: pantoprazole 40mg Tablet.DR PO SCH (08:38)
[2022-07-21] MEDS: docusate sod 100mg capsule PO SCH ×2 (08:38→19:59)
[2022-07-21] MEDS: heparin, porcine 5000 units/ml vial SQ SCH ×2 (08:39→20:00)
[2022-07-21] MEDS: fluconazole 100mg tablet PO SCH (08:39)
[2022-07-21] MEDS: mineral oil/petrolatum, white cream 60gm jar TP SCH ×2 (08:43→20:04)
[2022-07-21 10:45] VITALS: BP 119/75
[2022-07-21 11:00] VITALS: BP 119/75
[2022-07-21 18:00] VITALS: BP 126/82
[2022-07-21] MEDS: temazepam 15mg capsule PO PRN (19:59)
[2022-07-21] MEDS: tamsulosin 0.4mg capsule PO SCH (19:59)
[2022-07-21 22:00] VITALS: BP 93/55
[2022-07-22] MEDS: normal saline 1000ml 1,000 ML IV SCH ×2 (05:29→15:38)
--- NOTE | 2022-07-22 06:21 | NUR ---
Problems reprioritized. Patient report given, questions answered & plan of care reviewed with RUPALI Mcrae.
--- NOTE | 2022-07-22 06:49 | NUR ---
Patient in room [facility] 360. I have received report from JASPAL ZAPIEN and had the opportunity to ask questions and assume patient care.
[2022-07-22 06:54] VITALS: BP 114/72
[2022-07-22] MEDS: docusate sod 100mg capsule PO SCH ×2 (07:26→19:48)
[2022-07-22] MEDS: pantoprazole 40mg Tablet.DR PO SCH (07:27)
[2022-07-22] MEDS: fluconazole 100mg tablet PO SCH (07:27)
[2022-07-22] MEDS: heparin, porcine 5000 units/ml vial SQ SCH ×2 (07:28→19:48)
[2022-07-22] MEDS: mineral oil/petrolatum, white cream 60gm jar TP SCH ×2 (07:29→20:28)
[2022-07-22] MEDS: K and/or MAG REPLACEMENT MC SCH ×2 (08:00→19:44)
[2022-07-22 11:13] VITALS: BP 89/43
--- NOTE | 2022-07-22 14:00 | NUR ---
PATIENT REFUSED TO HAVE A SHOWER AT THIS TIME, PATIENT STATED HE FELT TOO WEAK AND WOULD RATHER SHOWER TOMORROW.
[2022-07-22 18:00] VITALS: BP 121/82
--- NOTE | 2022-07-22 19:03 | NUR ---
Problems reprioritized. Patient report given, questions answered & plan of care reviewed with JASPAL ZAPIEN.
[2022-07-22] MEDS: magnesium hydroxide 30ml (MOM) UD suspension PO PRN (19:48)
[2022-07-22] MEDS: temazepam 15mg capsule PO PRN (19:48)
[2022-07-22] MEDS: tamsulosin 0.4mg capsule PO SCH (19:48)
[2022-07-22 22:00] VITALS: BP 119/81
--- NOTE | 2022-07-23 06:19 | NUR ---
Problems reprioritized. Patient report given, questions answered & plan of care reviewed with RUPALI Mcrae.
[2022-07-23 06:23] VITALS: BP 91/58
--- NOTE | 2022-07-23 06:26 | NUR ---
Patient in room [facility] 360. I have received report from Leeanne ZAPIEN and had the opportunity to ask questions and assume patient care.
[2022-07-23] MEDS: docusate sod 100mg capsule PO SCH ×2 (07:35→19:58)
[2022-07-23] MEDS: pantoprazole 40mg Tablet.DR PO SCH (07:35)
[2022-07-23] MEDS: fluconazole 100mg tablet PO SCH (07:35)
[2022-07-23] MEDS: mineral oil/petrolatum, white cream 60gm jar TP SCH ×2 (07:36→19:59)
[2022-07-23] MEDS: normal saline 1000ml 1,000 ML IV SCH ×3 (07:36→20:00)
[2022-07-23] MEDS: K and/or MAG REPLACEMENT MC SCH ×2 (07:36→19:55)
[2022-07-23] MEDS: heparin, porcine 5000 units/ml vial SQ SCH ×2 (07:37→19:59)
[2022-07-23 10:45] VITALS: BP 102/72
--- NOTE | 2022-07-23 16:30 | NUR ---
PAGER ID: [phone] MESSAGE: MarcinA- Nikolai Anatoliy- pt had unwitnessed fall in shower. pt denies hitting head. redness to left elbow. no other injuries noted by primary RN Thor who is aware of fall. Denies pain. VS 109/80, 89, 96RA.
[2022-07-23 18:00] VITALS: BP 114/67
--- NOTE | 2022-07-23 18:11 | NUR ---
Problems reprioritized. Patient report given, questions answered & plan of care reviewed with Leeanne ZAPIEN.
[2022-07-23] MEDS: tamsulosin 0.4mg capsule PO SCH (19:58)
[2022-07-23] MEDS: magnesium hydroxide 30ml (MOM) UD suspension PO PRN (19:58)
[2022-07-23] MEDS: temazepam 15mg capsule PO PRN (19:58)
[2022-07-23 22:00] VITALS: BP 111/73
[2022-07-24] MEDS: normal saline 1000ml 1,000 ML IV SCH ×2 (05:20→13:55)
--- NOTE | 2022-07-24 06:11 | NUR ---
Problems reprioritized. Patient report given, questions answered & plan of care reviewed with RUPALI Mcrae.
[2022-07-24 06:51] VITALS: BP 102/66
[2022-07-24] MEDS: docusate sod 100mg capsule PO SCH ×2 (07:45→19:46)
[2022-07-24] MEDS: pantoprazole 40mg Tablet.DR PO SCH (07:45)
[2022-07-24] MEDS: fluconazole 100mg tablet PO SCH (07:45)
[2022-07-24] MEDS: heparin, porcine 5000 units/ml vial SQ SCH ×2 (07:45→19:44)
[2022-07-24] MEDS: mineral oil/petrolatum, white cream 60gm jar TP SCH ×2 (08:00→20:00)
[2022-07-24] MEDS: K and/or MAG REPLACEMENT MC SCH ×2 (08:00→19:51)
[2022-07-24 11:00] VITALS: BP 107/61
[2022-07-24 11:23] LABS: BASOPHILS % (AUTO) 0.6 % (0-1); EOSINOPHILS # (AUTO) 0.2 X10'3 (0-0.9); HEMATOCRIT 36.1 % (42.0-52.0); HEMOGLOBIN 12.4 g/dl (14.0-17.9); LYMPHOCYTES # (AUTO) 1.3 X10'3 (1.1-4.8); LYMPHOCYTES % (AUTO) 33.2 % (21-51); MEAN CORPUSCULAR HEMOGLOBIN 30.8 PG (27.0-31.0); MEAN CORPUSCULAR HGB CONC 34.4 g/dL (33.0-36.5); MEAN CORPUSCULAR VOLUME 89.4 FL (78-98); MEAN PLATELET VOLUME 7.6 FL (7.4-10.4); MONOCYTES # (AUTO) 0.3 X10'3 (0-0.9); MONOCYTES % (AUTO) 7.9 % (2-12); NEUTROPHILS # (AUTO) 2.2 X10'3 (1.8-7.7); NEUTROPHILS % (AUTO) 54.3 % (42-75); PLATELET COUNT 167 X10'3 (140-440); RED BLOOD COUNT 4.03 X10'6 (4.70-6.10); RED CELL DISTRIBUTION WIDTH 13.9 % (11.5-14.5)
--- NOTE | 2022-07-24 11:47 | NUR ---
PAGER ID: [phone] MESSAGE: Thor Surg [id number] Re: Nikolai MarcinA patients sisters is here wanting to speak with you Addendum: 07/24/22 at 1151 by Alysia Ny RN Per Dr Hess she needs to speak with tiffaniemanagement there is nothing he is doing medically for patient.
--- NOTE | 2022-07-24 11:50 | NUR ---
Paged post office manager for sister in room .
--- NOTE | 2022-07-24 12:28 | NUR ---
Patient family was upset with not being able to speak with MD, Notified Charge nurse of family member issues. I was able to answer many of the medical questions, but case managment is notified for many more question family has.
--- NOTE | 2022-07-24 16:52 | NUR ---
F/u /: Pt PO continues to be adequate ~75-100% though mostly 100% MM5 meals meeting estimated needs. LBM 07/17 receiving routine colace and PRN MoM 07/23 w/ PRN dulcolax available yet to be given per EMR. NAN d/w RN who reports will attempt MoM again today. Skin now intact per WOC note. Will monitor for further nutrition intervention needs this admit. Recommendations: 1. Continue MM5 diet per WIRE CHARGER recs; assist w/ meals PRN 2. Routine bowel care; 7 days constipation utilize PRN bowel regimen in EMR 3. Scaled wt this admit; subsequent weekly scaled weights Addendum: 07/24/22 at [address] Amended: Links added.
[2022-07-24 18:00] VITALS: BP 126/72
--- NOTE | 2022-07-24 18:03 | NUR ---
Problems reprioritized. Patient report given, questions answered & plan of care reviewed with CORKY ZAPIEN.
--- NOTE | 2022-07-24 18:10 | NUR ---
Patient in room [facility] 360. I have received report from Thor ZAPIEN and had the opportunity to ask questions and assume patient care.
[2022-07-24] MEDS: tamsulosin 0.4mg capsule PO SCH (19:46)
[2022-07-24] MEDS: temazepam 15mg capsule PO PRN (19:48)
--- NOTE | 2022-07-24 20:00 | NUR ---
Agree with collection of data/physical assessment of pt bt Shayy YUN.
[2022-07-25] MEDS: normal saline 1000ml 1,000 ML IV SCH ×2 (01:11→09:55)
[2022-07-25 06:00] VITALS: BP 123/68
--- NOTE | 2022-07-25 06:00 | NUR ---
Patient in room [facility] 360. I have received report from Maria YUN and had the opportunity to ask questions and assume patient care.
--- NOTE | 2022-07-25 06:23 | NUR ---
Problems reprioritized. Patient report given, questions answered & plan of care reviewed with Cindi YUN.
[2022-07-25] MEDS: K and/or MAG REPLACEMENT MC SCH ×2 (07:47→20:00)
[2022-07-25] MEDS: heparin, porcine 5000 units/ml vial SQ SCH ×2 (07:53→21:05)
[2022-07-25] MEDS: docusate sod 100mg capsule PO SCH ×2 (07:53→21:04)
[2022-07-25] MEDS: pantoprazole 40mg Tablet.DR PO SCH (07:53)
[2022-07-25] MEDS: mineral oil/petrolatum, white cream 60gm jar TP SCH ×2 (07:53→21:05)
[2022-07-25] MEDS: fluconazole 100mg tablet PO SCH (07:53)
[2022-07-25] MEDS: magnesium hydroxide 30ml (MOM) UD suspension PO PRN (07:53)
[2022-07-25 13:14] VITALS: BP 102/60
[2022-07-25 18:00] VITALS: BP 102/66
--- NOTE | 2022-07-25 18:00 | NUR ---
I have reviewed and agree with all interventions, assessments performed, and documentation by Cindi Aparicio LVN.
--- NOTE | 2022-07-25 18:17 | NUR ---
Problems reprioritized. Patient report given, questions answered & plan of care reviewed with Jayashree ZAPIEN.
--- NOTE | 2022-07-25 18:20 | NUR ---
Patient in room [facility] 360. I have received report from Cindi YUN and had the opportunity to ask questions and assume patient care.
[2022-07-25] MEDS: tamsulosin 0.4mg capsule PO SCH (21:04)
[2022-07-25] MEDS: HYDROcodone/acetaminophen 5mg/325mg tablet PO PRN (21:04)
[2022-07-25] MEDS: temazepam 15mg capsule PO PRN (21:11)
[2022-07-25 22:00] VITALS: BP 98/61
[2022-07-26 06:00] VITALS: BP 90/66
--- NOTE | 2022-07-26 06:45 | NUR ---
Problems reprioritized. Patient report given, questions answered & plan of care reviewed with Elvie YUN.
[2022-07-26] MEDS: K and/or MAG REPLACEMENT MC SCH ×2 (08:00→19:34)
[2022-07-26] MEDS: heparin, porcine 5000 units/ml vial SQ SCH ×2 (08:02→19:37)
[2022-07-26] MEDS: docusate sod 100mg capsule PO SCH ×2 (08:03→19:37)
[2022-07-26] MEDS: HYDROcodone/acetaminophen 5mg/325mg tablet PO PRN ×2 (08:05→22:10)
[2022-07-26] MEDS: fluconazole 100mg tablet PO SCH (08:05)
[2022-07-26] MEDS: mineral oil/petrolatum, white cream 60gm jar TP SCH ×2 (08:05→19:37)
[2022-07-26] MEDS: pantoprazole 40mg Tablet.DR PO SCH (08:05)
[2022-07-26 10:00] VITALS: BP 96/68
--- NOTE | 2022-07-26 10:55 | NUR ---
Sister (POA) Ana called asking for updates on patient, i answered all of her questions regarding the pt, she then requested to speak with the DR at his convenience, i informed her i would alert the DR of her request. Phone call was very pleasant.
--- NOTE | 2022-07-26 10:55 | NUR ---
PAGER ID: [phone] MESSAGE: [id number] Anatoliy Menchaca sister Margaux is wanting to speak with you, eva [phone]
[2022-07-26 18:00] VITALS: BP 94/64
[2022-07-26] MEDS: temazepam 15mg capsule PO PRN (19:37)
[2022-07-26] MEDS: nystatin 500,000 unit/5ML UD oral suspension PO SCH (20:04)
[2022-07-26] MEDS: tamsulosin 0.4mg capsule PO SCH (20:04)
[2022-07-26 22:00] VITALS: BP 104/62
--- NOTE | 2022-07-27 04:45 | NUR ---
Pt mendoza DC per Eran. No complaint of pain/discomfort noted during removal of catheter.
[2022-07-27 06:00] VITALS: BP 86/49
--- NOTE | 2022-07-27 06:21 | NUR ---
Problems reprioritized. Patient report given, questions answered & plan of care reviewed with Liv ZAPIEN.
--- NOTE | 2022-07-27 06:31 | NUR ---
Patient in room [facility] 360. I have received report from eva YUN and had the opportunity to ask questions and assume patient care.
[2022-07-27] MEDS: K and/or MAG REPLACEMENT MC SCH ×2 (08:00→19:23)
[2022-07-27] MEDS: pantoprazole 40mg Tablet.DR PO SCH (08:13)
[2022-07-27] MEDS: docusate sod 100mg capsule PO SCH ×2 (08:13→21:09)
[2022-07-27] MEDS: mineral oil/petrolatum, white cream 60gm jar TP SCH ×2 (08:14→21:10)
[2022-07-27] MEDS: heparin, porcine 5000 units/ml vial SQ SCH ×2 (08:14→21:10)
[2022-07-27] MEDS: nystatin 500,000 unit/5ML UD oral suspension PO SCH ×3 (08:14→21:07)
[2022-07-27 10:00] VITALS: BP 100/59
--- NOTE | 2022-07-27 17:51 | NUR ---
walked with PT 300ft, all cares given c/o sore penis unremarkable on assessment. incont of urine x3. will continue to monitor
[2022-07-27 18:00] VITALS: BP 107/72
[2022-07-27] MEDS: LACTOSE-REDUCED FOOD 237ML LIQUID PO SCH (18:00)
--- NOTE | 2022-07-27 18:40 | NUR ---
Problems reprioritized. Patient report given, questions answered & plan of care reviewed with Kathy ZAPIEN.
[2022-07-27] MEDS: HYDROcodone/acetaminophen 5mg/325mg tablet PO PRN (19:28)
[2022-07-27] MEDS: tamsulosin 0.4mg capsule PO SCH (21:09)
[2022-07-27] MEDS: temazepam 15mg capsule PO PRN (21:09)
[2022-07-27 22:00] VITALS: BP 96/60
[2022-07-28 06:00] VITALS: BP 99/67
--- NOTE | 2022-07-28 06:10 | NUR ---
Problems reprioritized. Patient report given, questions answered & plan of care reviewed with COURT Rai.
[2022-07-28 06:28] LABS: BASOPHILS % (AUTO) 0.8 % (0-1); EOSINOPHILS # (AUTO) 0.4 X10'3 (0-0.9); EOSINOPHILS % (AUTO) 7.8 % (0-6); HEMATOCRIT 39.8 % (42.0-52.0); HEMOGLOBIN 13.9 g/dl (14.0-17.9); LYMPHOCYTES # (AUTO) 2.3 X10'3 (1.1-4.8); LYMPHOCYTES % (AUTO) 41.2 % (21-51); MEAN CORPUSCULAR HGB CONC 34.9 g/dL (33.0-36.5); MEAN CORPUSCULAR VOLUME 88.8 FL (78-98); MEAN PLATELET VOLUME 8.7 FL (7.4-10.4); MONOCYTES # (AUTO) 0.4 X10'3 (0-0.9); MONOCYTES % (AUTO) 6.6 % (2-12); NEUTROPHILS # (AUTO) 2.4 X10'3 (1.8-7.7); NEUTROPHILS % (AUTO) 43.6 % (42-75); PLATELET COUNT 174 X10'3 (140-440); RED BLOOD COUNT 4.48 X10'6 (4.70-6.10); RED CELL DISTRIBUTION WIDTH 14.4 % (11.5-14.5); WHITE BLOOD COUNT 5.5 X10'3 (4.5-11.0)
[2022-07-28 06:41] LABS: ALANINE AMINOTRANSFERASE 21 U/L (12-78); ALBUMIN 3.6 G/DL (3.4-5.0); ALBUMIN/GLOBULIN RATIO 1.3 (1.1-1.5); ALKALINE PHOSPHATASE 50 IU/L (46-116); ANION GAP 5 (8-16); ASPARTATE AMINO TRANSFERASE 15 U/L (10-37); BILIRUBIN,TOTAL 0.5 MG/DL (0.1-1.0); BLOOD UREA NITROGEN 21 MG/DL (7-18); CALCIUM 8.8 MG/DL (8.5-10.1); CHLORIDE 103 MMOL/L (99-107); CREATININE 0.84 MG/DL (0.60-1.10); GLUCOSE 92 MG/DL (70-104); SODIUM 138 MMOL/L (135-145); TOTAL CARBON DIOXIDE 29.9 MMOL/L (24-32); TOTAL PROTEIN 6.4 G/DL (6.4-8.2); eGFR > 90 ML/MIN
[2022-07-28] MEDS: K and/or MAG REPLACEMENT MC SCH ×2 (08:00→19:41)
[2022-07-28] MEDS: LACTOSE-REDUCED FOOD 237ML LIQUID PO SCH ×3 (08:00→18:00)
[2022-07-28] MEDS: pantoprazole 40mg Tablet.DR PO SCH (08:44)
[2022-07-28] MEDS: nystatin 500,000 unit/5ML UD oral suspension PO SCH ×3 (08:44→19:55)
[2022-07-28] MEDS: docusate sod 100mg capsule PO SCH ×2 (08:44→19:56)
[2022-07-28] MEDS: mineral oil/petrolatum, white cream 60gm jar TP SCH ×2 (08:45→19:56)
[2022-07-28] MEDS: heparin, porcine 5000 units/ml vial SQ SCH ×2 (08:45→19:57)
--- NOTE | 2022-07-28 08:56 | NUR ---
NASIR Messer stock puller regarding Ensure Plus that has not been arriving on pt's tray. He stated that the order was just verified last night but that the pt no longer needs it as he is eating well. He suggested having the doctor discontinue.
[2022-07-28 10:00] VITALS: BP 93/61
[2022-07-28 18:00] VITALS: BP 94/69
--- NOTE | 2022-07-28 18:00 | NUR ---
Patient in room [facility] 360. I have received report from RUPALI Rai and had the opportunity to ask questions and assume patient care.
--- NOTE | 2022-07-28 18:34 | NUR ---
SEASONAL SALES ASSOCIATE documentation: I have reviewed and agree with all interventions, assessments performed and documented by Cecelia Sidhu LVN.
[2022-07-28] MEDS: HYDROcodone/acetaminophen 5mg/325mg tablet PO PRN (19:03)
[2022-07-28] MEDS: tamsulosin 0.4mg capsule PO SCH (19:56)
[2022-07-28] MEDS: temazepam 15mg capsule PO PRN (21:05)
[2022-07-28 22:00] VITALS: BP 92/56
[2022-07-29 06:00] VITALS: BP 170/58
--- NOTE | 2022-07-29 06:12 | NUR ---
Problems reprioritized. Patient report given, questions answered & plan of care reviewed with COURT Motta.
--- NOTE | 2022-07-29 06:29 | NUR ---
Patient in room [facility] 360. I have received report from Kathy ZAPIEN and had the opportunity to ask questions and assume patient care.
[2022-07-29] MEDS: nystatin 500,000 unit/5ML UD oral suspension PO SCH ×3 (07:44→20:00)
[2022-07-29] MEDS: pantoprazole 40mg Tablet.DR PO SCH (07:46)
[2022-07-29] MEDS: HYDROcodone/acetaminophen 5mg/325mg tablet PO PRN ×2 (07:46→19:20)
[2022-07-29] MEDS: docusate sod 100mg capsule PO SCH ×2 (07:46→20:01)
[2022-07-29] MEDS: heparin, porcine 5000 units/ml vial SQ SCH ×2 (07:46→20:01)
[2022-07-29] MEDS: mineral oil/petrolatum, white cream 60gm jar TP SCH ×2 (07:47→20:00)
[2022-07-29] MEDS: LACTOSE-REDUCED FOOD 237ML LIQUID PO SCH ×3 (07:54→18:21)
[2022-07-29] MEDS: K and/or MAG REPLACEMENT MC SCH ×2 (07:55→19:58)
[2022-07-29 10:00] VITALS: BP 88/61
--- NOTE | 2022-07-29 10:11 | NUR ---
PIT BOSS documentation: I have reviewed and agree with all interventions, assessments performed and documented by Cecelia Sidhu LVN .
[2022-07-29 18:00] VITALS: BP 100/74
--- NOTE | 2022-07-29 18:09 | NUR ---
Problems reprioritized. Patient report given, questions answered & plan of care reviewed with GERARDO ZAPIEN.
--- NOTE | 2022-07-29 18:18 | NUR ---
Patient in room [facility] 360. I have received report from RUPALI Mcrae and had the opportunity to ask questions and assume patient care.
[2022-07-29] MEDS: tamsulosin 0.4mg capsule PO SCH (20:01)
[2022-07-29] MEDS: temazepam 15mg capsule PO PRN (21:05)
[2022-07-29 22:00] VITALS: BP 105/68
--- NOTE | 2022-07-30 06:18 | NUR ---
Problems reprioritized. Patient report given, questions answered & plan of care reviewed with RUPALI Mcrae.
--- NOTE | 2022-07-30 06:37 | NUR ---
Patient in room [facility] 360. I have received report from GERARDO ZAPIEN and had the opportunity to ask questions and assume patient care.
[2022-07-30 06:56] VITALS: BP 90/58
[2022-07-30] MEDS: LACTOSE-REDUCED FOOD 237ML LIQUID PO SCH ×2 (08:00→13:00)
[2022-07-30] MEDS: K and/or MAG REPLACEMENT MC SCH ×2 (08:00→20:00)
[2022-07-30] MEDS: pantoprazole 40mg Tablet.DR PO SCH (09:48)
[2022-07-30] MEDS: nystatin 500,000 unit/5ML UD oral suspension PO SCH ×3 (09:48→19:12)
[2022-07-30] MEDS: docusate sod 100mg capsule PO SCH ×2 (09:48→19:11)
[2022-07-30] MEDS: heparin, porcine 5000 units/ml vial SQ SCH ×2 (09:50→19:13)
[2022-07-30] MEDS: mineral oil/petrolatum, white cream 60gm jar TP SCH ×2 (09:52→19:13)
[2022-07-30 10:00] VITALS: BP 98/64
--- NOTE | 2022-07-30 14:02 | NUR ---
F/u 07/30: Pt PO continues to be mostly 100% avg MM5 meals meeting estimated needs. Noted Ensure Plus High Protein ONS now verified by MD in EMR however pt no longer needs. NAN d/w RN regarding removal of ONS from EMR since PO trends adequate if MD agreeable. LBM 07/29 per EMR. No nutrition interventions at this time. Will continue to follow. Recommendations: 1. Continue MM5 diet per GLOBAL PROCESS OWNER recs; assist w/ meals PRN 2. Routine bowel care 3. Scaled wt this admit; subsequent weekly scaled weights Addendum: 07/30/22 at [address] Amended: Links added.
[2022-07-30 18:00] VITALS: BP 106/74
--- NOTE | 2022-07-30 18:05 | NUR ---
Problems reprioritized. Patient report given, questions answered & plan of care reviewed with Yvette ZAPIEN.
--- NOTE | 2022-07-30 18:30 | NUR ---
Patient in room [facility] 360. I have received report from jack Mcrae and had the opportunity to ask questions and assume patient care.
[2022-07-30] MEDS: magnesium hydroxide 30ml (MOM) UD suspension PO PRN (19:11)
[2022-07-30] MEDS: tamsulosin 0.4mg capsule PO SCH (19:12)
[2022-07-30] MEDS: HYDROcodone/acetaminophen 5mg/325mg tablet PO PRN (19:12)
[2022-07-30] MEDS: temazepam 15mg capsule PO PRN (20:58)
[2022-07-30 22:00] VITALS: BP 92/71
[2022-07-31] MEDS: HYDROcodone/acetaminophen 5mg/325mg tablet PO PRN ×2 (05:40→19:45)
--- NOTE | 2022-07-31 06:02 | NUR ---
Problems reprioritized. Patient report given, questions answered & plan of care reviewed with jack Mcrae.
--- NOTE | 2022-07-31 06:43 | NUR ---
Patient in room [facility] 360. I have received report from Yvette ZAPIEN and had the opportunity to ask questions and assume patient care.
[2022-07-31 07:04] VITALS: BP 94/66
[2022-07-31] MEDS: K and/or MAG REPLACEMENT MC SCH ×2 (08:00→20:00)
[2022-07-31] MEDS: nystatin 500,000 unit/5ML UD oral suspension PO SCH ×3 (08:24→19:45)
[2022-07-31] MEDS: docusate sod 100mg capsule PO SCH ×2 (08:24→19:46)
[2022-07-31] MEDS: heparin, porcine 5000 units/ml vial SQ SCH ×2 (08:24→19:46)
[2022-07-31] MEDS: pantoprazole 40mg Tablet.DR PO SCH (08:24)
[2022-07-31] MEDS: mineral oil/petrolatum, white cream 60gm jar TP SCH ×2 (09:01→19:47)
[2022-07-31 11:55] VITALS: BP 101/71
[2022-07-31 18:00] VITALS: BP 98/59
--- NOTE | 2022-07-31 18:01 | NUR ---
Problems reprioritized. Patient report given, questions answered & plan of care reviewed with LEATHA ZAPIEN.
[2022-07-31] MEDS: magnesium hydroxide 30ml (MOM) UD suspension PO PRN (19:44)
[2022-07-31] MEDS: tamsulosin 0.4mg capsule PO SCH (19:46)
[2022-07-31] MEDS: temazepam 15mg capsule PO PRN (19:50)
[2022-07-31 22:00] VITALS: BP 81/55
[2022-08-01] MEDS: HYDROcodone/acetaminophen 5mg/325mg tablet PO PRN ×2 (04:21→19:09)
--- NOTE | 2022-08-01 06:40 | NUR ---
Problems reprioritized. Patient report given, questions answered & plan of care reviewed with RUPALI KIM.
[2022-08-01 07:00] VITALS: BP 96/63
[2022-08-01] MEDS: K and/or MAG REPLACEMENT MC SCH ×2 (08:00→20:00)
[2022-08-01] MEDS: pantoprazole 40mg Tablet.DR PO SCH (08:29)
[2022-08-01] MEDS: heparin, porcine 5000 units/ml vial SQ SCH ×2 (08:29→19:10)
[2022-08-01] MEDS: docusate sod 100mg capsule PO SCH ×2 (08:29→19:09)
[2022-08-01] MEDS: nystatin 500,000 unit/5ML UD oral suspension PO SCH ×3 (08:31→19:17)
[2022-08-01] MEDS: mineral oil/petrolatum, white cream 60gm jar TP SCH ×2 (08:34→19:18)
--- NOTE | 2022-08-01 10:44 | NUR ---
PAGER ID: [phone] MESSAGE: 360a STACY CESPEDES PATIENTS CURRENT BP IS 74/48 hr 70 83/46 HR 88 JULIO [id number]
[2022-08-01] MEDS ORDERED: normal saline 500ml IV soln 500 ML IV ONE (10:45)
[2022-08-01 10:46] VITALS: BP 74/48
[2022-08-01 10:47] VITALS: BP 83/46
[2022-08-01 13:10] VITALS: BP 119/90
--- NOTE | 2022-08-01 13:10 | NUR ---
recheck after bolus Addendum: 08/01/22 at 1311 by Therese Gomes RN Amended: Links added.
[2022-08-01 18:00] VITALS: BP 102/72
--- NOTE | 2022-08-01 18:17 | NUR ---
Problems reprioritized. Patient report given, questions answered & plan of care reviewed with Yvette ZAPIEN.
[2022-08-01] MEDS: magnesium hydroxide 30ml (MOM) UD suspension PO PRN (19:08)
[2022-08-01] MEDS: temazepam 15mg capsule PO PRN (19:09)
[2022-08-01] MEDS: tamsulosin 0.4mg capsule PO SCH (19:09)
[2022-08-01 22:00] VITALS: BP 86/62
[2022-08-02 06:00] VITALS: BP 87/61
--- NOTE | 2022-08-02 06:44 | NUR ---
Patient in room [facility] 360. I have received report from Yvette ZAPIEN and had the opportunity to ask questions and assume patient care.
[2022-08-02 07:28] LABS: BASOPHILS % (AUTO) 0.6 % (0-1); EOSINOPHILS # (AUTO) 0.3 X10'3 (0-0.9); EOSINOPHILS % (AUTO) 4.7 % (0-6); HEMATOCRIT 40.1 % (42.0-52.0); HEMOGLOBIN 13.6 g/dl (14.0-17.9); LYMPHOCYTES % (AUTO) 35.4 % (21-51); MEAN CORPUSCULAR HEMOGLOBIN 30.5 PG (27.0-31.0); MEAN CORPUSCULAR HGB CONC 33.8 g/dL (33.0-36.5); MEAN CORPUSCULAR VOLUME 90.1 FL (78-98); MEAN PLATELET VOLUME 8.7 FL (7.4-10.4); MONOCYTES # (AUTO) 0.5 X10'3 (0-0.9); MONOCYTES % (AUTO) 8.8 % (2-12); NEUTROPHILS # (AUTO) 2.8 X10'3 (1.8-7.7); NEUTROPHILS % (AUTO) 50.5 % (42-75); PLATELET COUNT 162 X10'3 (140-440); RED BLOOD COUNT 4.45 X10'6 (4.70-6.10); RED CELL DISTRIBUTION WIDTH 14.7 % (11.5-14.5); WHITE BLOOD COUNT 5.6 X10'3 (4.5-11.0)
[2022-08-02] MEDS: nystatin 500,000 unit/5ML UD oral suspension PO SCH ×3 (07:47→20:26)
[2022-08-02] MEDS: magnesium hydroxide 30ml (MOM) UD suspension PO PRN (07:47)
[2022-08-02] MEDS: docusate sod 100mg capsule PO SCH ×2 (07:48→20:26)
[2022-08-02] MEDS: heparin, porcine 5000 units/ml vial SQ SCH ×2 (07:48→20:26)
[2022-08-02] MEDS: mineral oil/petrolatum, white cream 60gm jar TP SCH ×2 (07:48→20:27)
[2022-08-02] MEDS: pantoprazole 40mg Tablet.DR PO SCH (07:48)
[2022-08-02] MEDS: K and/or MAG REPLACEMENT MC SCH ×2 (08:00→20:00)
[2022-08-02 09:13] LABS: ALBUMIN 3.8 G/DL (3.4-5.0); ANION GAP 10 (8-16); BLOOD UREA NITROGEN 24 MG/DL (7-18); BUN/CREATININE RATIO 29.3 (5.4-32.0); CALCIUM 9.2 MG/DL (8.5-10.1); CHLORIDE 104 MMOL/L (99-107); CREATININE 0.82 MG/DL (0.60-1.10); GLUCOSE 94 MG/DL (70-104); POTASSIUM 4.2 MMOL/L (3.5-5.1); SODIUM 141 MMOL/L (135-145); TOTAL CARBON DIOXIDE 27.4 MMOL/L (24-32); eGFR > 90 ML/MIN
[2022-08-02] MEDS: HYDROcodone/acetaminophen 5mg/325mg tablet PO PRN ×2 (16:50→22:37)
[2022-08-02 18:00] VITALS: BP 90/65
[2022-08-02 20:00] VITALS: BP_SYST 70; BP_SYST 84; BP_SYST 86; BP_DIAS 50; BP_DIAS 52; BP_DIAS 63
[2022-08-02] MEDS: tamsulosin 0.4mg capsule PO SCH (20:26)
[2022-08-02] MEDS: temazepam 15mg capsule PO PRN (20:28)
[2022-08-02 22:00] VITALS: BP 92/60
[2022-08-02 23:18] VITALS: BP 92/60
[2022-08-03 03:10] VITALS: BP 100/72
[2022-08-03 05:00] VITALS: BP 98/64
--- NOTE | 2022-08-03 06:42 | NUR ---
Patient in room [facility] 360. I have received report from COURT Puente and had the opportunity to ask questions and assume patient care.
[2022-08-03 08:00] VITALS: BP_SYST 76; BP_SYST 97; BP_SYST 99; BP_DIAS 41; BP_DIAS 65; BP_DIAS 73
[2022-08-03] MEDS: mineral oil/petrolatum, white cream 60gm jar TP SCH ×2 (08:00→20:00)
[2022-08-03] MEDS: K and/or MAG REPLACEMENT MC SCH ×2 (08:00→20:00)
[2022-08-03] MEDS: nystatin 500,000 unit/5ML UD oral suspension PO SCH ×3 (09:12→20:42)
[2022-08-03] MEDS: docusate sod 100mg capsule PO SCH ×2 (09:12→20:42)
[2022-08-03] MEDS: pantoprazole 40mg Tablet.DR PO SCH (09:12)
[2022-08-03] MEDS: heparin, porcine 5000 units/ml vial SQ SCH ×2 (09:13→20:42)
[2022-08-03] MEDS: HYDROcodone/acetaminophen 5mg/325mg tablet PO PRN ×3 (09:23→21:28)
[2022-08-03 11:00] VITALS: BP 99/73
--- NOTE | 2022-08-03 11:40 | NUR ---
PAGER ID: [phone] MESSAGE: Heaven [id number] RE: Anatoliy Menchaca room 360A - positive orthostatics
[2022-08-03] MEDS: midodrine 5mg tablet PO SCH (16:10)
[2022-08-03 18:00] VITALS: BP 92/64
--- NOTE | 2022-08-03 18:35 | NUR ---
Patient in room [facility] 360. I have received report from [employer] and had the opportunity to ask questions and assume patient care.
--- NOTE | 2022-08-03 18:37 | NUR ---
Problems reprioritized. Patient report given, questions answered & plan of care reviewed with RUPALI Torre.
[2022-08-03] MEDS: tamsulosin 0.4mg capsule PO SCH (20:42)
--- NOTE | 2022-08-03 20:50 | NUR ---
c/o pain inside of penis but no redness or sores noted on the penis Addendum: 08/04/22 at 0233 by Yelitza Sifuentes RN Amended: Links added.
[2022-08-03] MEDS: temazepam 15mg capsule PO PRN (21:26)
[2022-08-03 22:00] VITALS: BP_SYST 100; BP_SYST 111; BP_SYST 96; BP_DIAS 60; BP_DIAS 67; BP_DIAS 74
[2022-08-04 06:00] VITALS: BP 88/50
--- NOTE | 2022-08-04 06:11 | NUR ---
Problems reprioritized. Patient report given, questions answered & plan of care reviewed with Heaven ZAPIEN.
--- NOTE | 2022-08-04 06:45 | NUR ---
Patient in room [facility] 360. I have received report from RUPALI Torre and had the opportunity to ask questions and assume patient care.
[2022-08-04] MEDS: K and/or MAG REPLACEMENT MC SCH ×2 (08:00→19:05)
[2022-08-04] MEDS: HYDROcodone/acetaminophen 5mg/325mg tablet PO PRN ×3 (08:28→20:23)
[2022-08-04] MEDS: nystatin 500,000 unit/5ML UD oral suspension PO SCH ×3 (08:28→19:04)
[2022-08-04] MEDS: heparin, porcine 5000 units/ml vial SQ SCH ×2 (08:28→19:04)
[2022-08-04] MEDS: docusate sod 100mg capsule PO SCH ×2 (08:28→19:04)
[2022-08-04] MEDS: midodrine 5mg tablet PO SCH ×3 (08:28→16:25)
[2022-08-04] MEDS: pantoprazole 40mg Tablet.DR PO SCH ×2 (08:28→19:04)
[2022-08-04] MEDS: mineral oil/petrolatum, white cream 60gm jar TP SCH ×2 (08:29→19:04)
[2022-08-04 10:00] VITALS: BP_SYST 107; BP_SYST 78; BP_SYST 97; BP_DIAS 46; BP_DIAS 66; BP_DIAS 71
--- NOTE | 2022-08-04 18:42 | NUR ---
Problems reprioritized. Patient report given, questions answered & plan of care reviewed with RUPALI Rachel.
[2022-08-04] MEDS: magnesium hydroxide 30ml (MOM) UD suspension PO PRN (19:04)
[2022-08-04] MEDS: temazepam 15mg capsule PO PRN (20:22)
[2022-08-04] MEDS: tamsulosin 0.4mg capsule PO SCH (20:22)
[2022-08-04 23:02] VITALS: BP 97/67
[2022-08-05] MEDS: HYDROcodone/acetaminophen 5mg/325mg tablet PO PRN ×3 (04:55→22:00)
[2022-08-05 05:27] VITALS: BP_SYST 76; BP_SYST 90; BP_SYST 95; BP_DIAS 44; BP_DIAS 62; BP_DIAS 65
[2022-08-05 06:00] VITALS: BP 95/65
[2022-08-05] MEDS: K and/or MAG REPLACEMENT MC SCH ×2 (08:00→19:47)
[2022-08-05 10:00] VITALS: BP 95/53
[2022-08-05] MEDS: docusate sod 100mg capsule PO SCH ×2 (10:00→22:00)
[2022-08-05] MEDS: mineral oil/petrolatum, white cream 60gm jar TP SCH ×2 (10:00→20:00)
[2022-08-05] MEDS: nystatin 500,000 unit/5ML UD oral suspension PO SCH ×3 (10:00→22:04)
[2022-08-05] MEDS: midodrine 5mg tablet PO SCH ×3 (10:00→16:27)
[2022-08-05] MEDS: heparin, porcine 5000 units/ml vial SQ SCH ×2 (10:00→22:01)
[2022-08-05 14:58] LABS: CLARITY,URINE CLEAR (Clear); COLOR,URINE YELLOW (Yellow); GLUCOSE, URINE NEGATIVE (Neg); KETONES,URINE NEGATIVE (Neg); LEUKOCYTE ESTERASE ,URINE NEGATIVE (Neg); NITRITES, URINE NEGATIVE (Neg); OCCULT BLOOD,URINE NEGATIVE (Neg); PROTEIN,URINE NEGATIVE (Neg); UROBILINOGEN,URINE 0.2 E.U/dL (0.2-1.0)
[2022-08-05 15:02] LABS: UA COLLECTION TYPE NON-SPECIFIED
[2022-08-05 16:16] LABS: BASOPHILS % (AUTO) 0.5 % (0-1); EOSINOPHILS % (AUTO) 0.7 % (0-6); HEMATOCRIT 37.6 % (42.0-52.0); LYMPHOCYTES # (AUTO) 0.6 X10'3 (1.1-4.8); LYMPHOCYTES % (AUTO) 18.2 % (21-51); MEAN CORPUSCULAR HEMOGLOBIN 30.8 PG (27.0-31.0); MEAN CORPUSCULAR HGB CONC 34.5 g/dL (33.0-36.5); MEAN CORPUSCULAR VOLUME 89.2 FL (78-98); MEAN PLATELET VOLUME 8.3 FL (7.4-10.4); MONOCYTES # (AUTO) 0.5 X10'3 (0-0.9); MONOCYTES % (AUTO) 16.4 % (2-12); NEUTROPHILS % (AUTO) 64.2 % (42-75); PLATELET COUNT 100 X10'3 (140-440); RED BLOOD COUNT 4.22 X10'6 (4.70-6.10); RED CELL DISTRIBUTION WIDTH 14.1 % (11.5-14.5); WHITE BLOOD COUNT 3.1 X10'3 (4.5-11.0)
[2022-08-05 16:30] LABS: ALANINE AMINOTRANSFERASE 20 U/L (12-78); ALBUMIN 3.6 G/DL (3.4-5.0); ALBUMIN/GLOBULIN RATIO 1.3 (1.1-1.5); ALKALINE PHOSPHATASE 66 IU/L (46-116); ANION GAP 7 (8-16); ASPARTATE AMINO TRANSFERASE 15 U/L (10-37); BILIRUBIN,TOTAL 0.3 MG/DL (0.1-1.0); BLOOD UREA NITROGEN 22 MG/DL (7-18); BUN/CREATININE RATIO 23.7 (5.4-32.0); CALCIUM 8.3 MG/DL (8.5-10.1); CHLORIDE 101 MMOL/L (99-107); CREATININE 0.93 MG/DL (0.60-1.10); GLUCOSE 116 MG/DL (70-104); POTASSIUM 4.5 MMOL/L (3.5-5.1); SODIUM 134 MMOL/L (135-145); TOTAL CARBON DIOXIDE 26.1 MMOL/L (24-32); TOTAL PROTEIN 6.4 G/DL (6.4-8.2); eGFR 82 ML/MIN
[2022-08-05] MEDS: magnesium hydroxide 30ml (MOM) UD suspension PO PRN (17:40)
[2022-08-05 18:00] VITALS: BP 82/53
--- NOTE | 2022-08-05 19:00 | NUR ---
Report given to Charlotte ZAPIEN, all questions answered at this time.Pt resting comfortably at this time. Message sent to to put in orders for flu and covid swab.
[2022-08-05] MEDS: normal saline 1000ml 1,000 ML IV SCH (19:05)
[2022-08-05] MEDS ORDERED: normal saline 1000ml 1,000 ML IV ONE (19:05)
--- NOTE | 2022-08-05 20:31 | NUR ---
Labs results patient Covid positive. to be notified. Patient moved to [facility] room 3042
--- NOTE | 2022-08-05 21:16 | NUR ---
Dr. Hess notified of Covid positive. No new orders
[2022-08-05 22:00] VITALS: BP 109/57
[2022-08-05] MEDS: tamsulosin 0.4mg capsule PO SCH (22:00)
[2022-08-05] MEDS: temazepam 15mg capsule PO PRN (22:00)
[2022-08-06 02:00] VITALS: BP 97/70
[2022-08-06 05:26] VITALS: BP 88/59
[2022-08-06 06:00] VITALS: BP 88/39
--- NOTE | 2022-08-06 06:34 | NUR ---
Patient in room [facility] 341. I have received report from RUPALI KWON and had the opportunity to ask questions and assume patient care.
[2022-08-06 07:44] LABS: ALANINE AMINOTRANSFERASE 20 U/L (12-78); ALBUMIN 3.2 G/DL (3.4-5.0); ALBUMIN/GLOBULIN RATIO 1.2 (1.1-1.5); ALKALINE PHOSPHATASE 59 IU/L (46-116); ANION GAP 7 (8-16); ASPARTATE AMINO TRANSFERASE 20 U/L (10-37); BILIRUBIN,TOTAL 0.3 MG/DL (0.1-1.0); BLOOD UREA NITROGEN 22 MG/DL (7-18); BUN/CREATININE RATIO 28.2 (5.4-32.0); CALCIUM 8.2 MG/DL (8.5-10.1); CHLORIDE 104 MMOL/L (99-107); CREATININE 0.78 MG/DL (0.60-1.10); GLUCOSE 82 MG/DL (70-104); MAGNESIUM 2.4 MG/DL (1.5-2.4); PHOSPHORUS 4.5 MG/DL (2.3-4.5); SODIUM 137 MMOL/L (135-145); TOTAL PROTEIN 5.9 G/DL (6.4-8.2); eGFR > 90 ML/MIN
[2022-08-06] MEDS: mineral oil/petrolatum, white cream 60gm jar TP SCH ×2 (08:00→20:42)
[2022-08-06] MEDS: K and/or MAG REPLACEMENT MC SCH ×2 (08:00→20:00)
[2022-08-06] MEDS: midodrine 5mg tablet PO SCH ×3 (08:39→16:29)
[2022-08-06] MEDS: pantoprazole 40mg Tablet.DR PO SCH (08:39)
[2022-08-06] MEDS: heparin, porcine 5000 units/ml vial SQ SCH ×2 (08:39→20:42)
[2022-08-06] MEDS: nystatin 500,000 unit/5ML UD oral suspension PO SCH ×3 (08:39→20:42)
[2022-08-06] MEDS: docusate sod 100mg capsule PO SCH ×2 (08:39→20:41)
[2022-08-06] MEDS: normal saline 1000ml 1,000 ML IV SCH ×3 (08:58→18:04)
[2022-08-06 10:17] LABS: HEMOGLOBIN 12.2 g/dl (14.0-17.9); LYMPHOCYTES # (AUTO) 1.3 X10'3 (1.1-4.8); WHITE BLOOD COUNT 2.9 X10'3 (4.5-11.0)
[2022-08-06 10:19] LABS: BASOPHILS % (AUTO) 0.5 % (0-1); EOSINOPHILS % (AUTO) 0.5 % (0-6); HEMATOCRIT 35.9 % (42.0-52.0); LYMPHOCYTES % (AUTO) 44.8 % (21-51); MEAN CORPUSCULAR HGB CONC 33.9 g/dL (33.0-36.5); MEAN CORPUSCULAR VOLUME 91.3 FL (78-98); MEAN PLATELET VOLUME 9.4 FL (7.4-10.4); MONOCYTES # (AUTO) 0.5 X10'3 (0-0.9); MONOCYTES % (AUTO) 18.2 % (2-12); PLATELET COUNT 82 X10'3 (140-440); RED BLOOD COUNT 3.93 X10'6 (4.70-6.10); RED CELL DISTRIBUTION WIDTH 14.6 % (11.5-14.5)
[2022-08-06 10:44] LABS: PLATELET ESTIMATE DECREASED
[2022-08-06 10:45] LABS: BURR CELLS 2+; ELLIPTOCYTES 1+
[2022-08-06 10:51] LABS: C-REACTIVE PROTEIN 1.53 MG/DL (0.0-0.5)
[2022-08-06 11:00] VITALS: BP 94/67
[2022-08-06] MEDS: HYDROcodone/acetaminophen 5mg/325mg tablet PO PRN ×3 (11:16→21:59)
[2022-08-06 11:28] LABS: D-DIMER 0.27 MG/L FEU (0-0.50)
[2022-08-06 18:30] VITALS: BP 123/79
--- NOTE | 2022-08-06 18:41 | NUR ---
Problems reprioritized. Patient report given, questions answered & plan of care reviewed with RUPALI GLASS.
[2022-08-06] MEDS: tamsulosin 0.4mg capsule PO SCH (20:41)
[2022-08-06] MEDS: temazepam 15mg capsule PO PRN (21:46)
[2022-08-06 22:30] VITALS: BP 121/85
[2022-08-07] MEDS: normal saline 1000ml 1,000 ML IV SCH ×3 (03:15→13:26)
[2022-08-07] MEDS: HYDROcodone/acetaminophen 5mg/325mg tablet PO PRN ×4 (03:15→21:55)
[2022-08-07 06:00] VITALS: BP 108/62
--- NOTE | 2022-08-07 06:33 | NUR ---
Patient in room [facility] 341. I have received report from RUPALI GLASS and had the opportunity to ask questions and assume patient care.
--- NOTE | 2022-08-07 06:37 | NUR ---
Problems reprioritized. Patient report given, questions answered & plan of care reviewed with TASNEEM. Addendum: 08/07/22 at 0638 by Nathan Ryan RN Amended: Links added.
[2022-08-07 09:16] LABS: BASOPHILS % (AUTO) 0.5 % (0-1); EOSINOPHILS # (AUTO) 0.1 X10'3 (0-0.9); EOSINOPHILS % (AUTO) 4.8 % (0-6); HEMATOCRIT 35.9 % (42.0-52.0); HEMOGLOBIN 12.3 g/dl (14.0-17.9); LYMPHOCYTES # (AUTO) 1.2 X10'3 (1.1-4.8); LYMPHOCYTES % (AUTO) 50.9 % (21-51); MEAN CORPUSCULAR HEMOGLOBIN 30.9 PG (27.0-31.0); MEAN CORPUSCULAR HGB CONC 34.2 g/dL (33.0-36.5); MEAN CORPUSCULAR VOLUME 90.1 FL (78-98); MEAN PLATELET VOLUME 8.2 FL (7.4-10.4); MONOCYTES # (AUTO) 0.3 X10'3 (0-0.9); NEUTROPHILS # (AUTO) 0.8 X10'3 (1.8-7.7); NEUTROPHILS % (AUTO) 32.8 % (42-75); PLATELET COUNT 74 X10'3 (140-440); RED BLOOD COUNT 3.99 X10'6 (4.70-6.10); RED CELL DISTRIBUTION WIDTH 14.6 % (11.5-14.5); WHITE BLOOD COUNT 2.3 X10'3 (4.5-11.0)
[2022-08-07 09:23] LABS: D-DIMER 0.21 MG/L FEU (0-0.50)
[2022-08-07] MEDS: heparin, porcine 5000 units/ml vial SQ SCH ×2 (09:26→20:00)
[2022-08-07] MEDS: docusate sod 100mg capsule PO SCH ×2 (09:27→20:00)
[2022-08-07] MEDS: midodrine 5mg tablet PO SCH ×3 (09:27→17:48)
[2022-08-07] MEDS: pantoprazole 40mg Tablet.DR PO SCH (09:27)
[2022-08-07] MEDS: nystatin 500,000 unit/5ML UD oral suspension PO SCH ×3 (09:27→20:29)
[2022-08-07] MEDS: mineral oil/petrolatum, white cream 60gm jar TP SCH ×2 (09:47→20:00)
[2022-08-07 09:52] LABS: ALANINE AMINOTRANSFERASE 21 U/L (12-78); ALBUMIN/GLOBULIN RATIO 1.2 (1.1-1.5); ALKALINE PHOSPHATASE 56 IU/L (46-116); ANION GAP 4 (8-16); ASPARTATE AMINO TRANSFERASE 19 U/L (10-37); BILIRUBIN,TOTAL 0.3 MG/DL (0.1-1.0); BLOOD UREA NITROGEN 16 MG/DL (7-18); BUN/CREATININE RATIO 20.3 (5.4-32.0); C-REACTIVE PROTEIN 0.69 MG/DL (0.0-0.5); CALCIUM 7.9 MG/DL (8.5-10.1); CHLORIDE 106 MMOL/L (99-107); CREATININE 0.79 MG/DL (0.60-1.10); GLUCOSE 111 MG/DL (70-104); POTASSIUM 3.6 MMOL/L (3.5-5.1); SODIUM 138 MMOL/L (135-145); TOTAL CARBON DIOXIDE 27.7 MMOL/L (24-32); TOTAL PROTEIN 5.5 G/DL (6.4-8.2); eGFR > 90 ML/MIN
[2022-08-07] MEDS: K and/or MAG REPLACEMENT MC SCH ×2 (10:30→20:00)
[2022-08-07 11:00] VITALS: BP 110/78
[2022-08-07 11:37] LABS: ELLIPTOCYTES FEW; PLATELET ESTIMATE DECREASED; TOTAL CELLS COUNTED 100
[2022-08-07 18:30] VITALS: BP 130/81
--- NOTE | 2022-08-07 18:39 | NUR ---
Problems reprioritized. Patient report given, questions answered & plan of care reviewed with RUPALI GLASS.
[2022-08-07 18:40] VITALS: BP 130/81
[2022-08-07] MEDS: tamsulosin 0.4mg capsule PO SCH (20:29)
[2022-08-07] MEDS: temazepam 15mg capsule PO PRN (21:55)
[2022-08-07 22:00] VITALS: BP 95/54
[2022-08-08 05:59] LABS: HEMATOCRIT 34.7 % (42.0-52.0); HEMOGLOBIN 12.2 g/dl (14.0-17.9); MEAN CORPUSCULAR HEMOGLOBIN 31.2 PG (27.0-31.0); MEAN CORPUSCULAR HGB CONC 35.1 g/dL (33.0-36.5); MEAN PLATELET VOLUME 8.2 FL (7.4-10.4); PLATELET COUNT 78 X10'3 (140-440); RED BLOOD COUNT 3.89 X10'6 (4.70-6.10); RED CELL DISTRIBUTION WIDTH 14.4 % (11.5-14.5); WHITE BLOOD COUNT 2.6 X10'3 (4.5-11.0)
[2022-08-08 06:00] VITALS: BP 129/75
[2022-08-08 06:05] LABS: D-DIMER 0.24 MG/L FEU (0-0.50)
[2022-08-08 06:16] LABS: ALBUMIN 3.1 G/DL (3.4-5.0); ANION GAP 5 (8-16); BLOOD UREA NITROGEN 11 MG/DL (7-18); BUN/CREATININE RATIO 15.1 (5.4-32.0); C-REACTIVE PROTEIN 0.42 MG/DL (0.0-0.5); CALCIUM 8.1 MG/DL (8.5-10.1); CHLORIDE 103 MMOL/L (99-107); CREATININE 0.73 MG/DL (0.60-1.10); GLUCOSE 82 MG/DL (70-104); POTASSIUM 3.5 MMOL/L (3.5-5.1); SODIUM 136 MMOL/L (135-145); TOTAL CARBON DIOXIDE 27.8 MMOL/L (24-32); eGFR > 90 ML/MIN
--- NOTE | 2022-08-08 06:30 | NUR ---
Problems reprioritized. Patient report given, questions answered & plan of care reviewed with TASNEEM. Addendum: 08/08/22 at 0630 by Nathan Ryan RN Amended: Links added.
--- NOTE | 2022-08-08 06:34 | NUR ---
Patient in room [facility] 341. I have received report from RUPALI GLASS and had the opportunity to ask questions and assume patient care.
[2022-08-08] MEDS: mineral oil/petrolatum, white cream 60gm jar TP SCH ×2 (08:00→20:46)
[2022-08-08] MEDS: midodrine 5mg tablet PO SCH ×3 (09:38→17:25)
[2022-08-08] MEDS: HYDROcodone/acetaminophen 5mg/325mg tablet PO PRN ×3 (09:38→20:45)
[2022-08-08] MEDS: nystatin 500,000 unit/5ML UD oral suspension PO SCH ×3 (09:38→20:45)
[2022-08-08] MEDS: pantoprazole 40mg Tablet.DR PO SCH (09:38)
[2022-08-08] MEDS: normal saline 1000ml 1,000 ML IV SCH (09:39)
[2022-08-08] MEDS: heparin, porcine 5000 units/ml vial SQ SCH ×2 (09:39→20:00)
[2022-08-08] MEDS: K and/or MAG REPLACEMENT MC SCH ×2 (09:41→20:00)
[2022-08-08] MEDS: docusate sod 100mg capsule PO SCH ×2 (09:41→20:44)
[2022-08-08 11:00] VITALS: BP 128/79
[2022-08-08 18:00] VITALS: BP 113/74
--- NOTE | 2022-08-08 18:30 | NUR ---
Patient in room [facility] 341. I have received report from Marcy ZAPIEN and had the opportunity to ask questions and assume patient care.
--- NOTE | 2022-08-08 19:08 | NUR ---
Problems reprioritized. Patient report given, questions answered & plan of care reviewed with RUPALI LANIER.
[2022-08-08] MEDS: tamsulosin 0.4mg capsule PO SCH (20:45)
[2022-08-08 22:00] VITALS: BP 115/79
--- NOTE | 2022-08-08 23:00 | NUR ---
patient refused ortho static vs to be taken Addendum: 08/08/22 at 2303 by Jayashree Gao RN Amended: Links added.
[2022-08-09] MEDS: normal saline 1000ml 1,000 ML IV SCH (03:05)
[2022-08-09] MEDS: HYDROcodone/acetaminophen 5mg/325mg tablet PO PRN ×4 (05:13→22:59)
[2022-08-09 06:00] VITALS: BP 109/73
--- NOTE | 2022-08-09 06:53 | NUR ---
Problems reprioritized. Patient report given, questions answered & plan of care reviewed with Flash ZAPIEN.
--- NOTE | 2022-08-09 06:59 | NUR ---
Patient in room [facility] 341. I have received report from minor santiago and had the opportunity to ask questions and assume patient care.
[2022-08-09] MEDS: mineral oil/petrolatum, white cream 60gm jar TP SCH ×2 (08:00→20:00)
[2022-08-09] MEDS: heparin, porcine 5000 units/ml vial SQ SCH ×2 (08:00→20:00)
[2022-08-09] MEDS: K and/or MAG REPLACEMENT MC SCH ×2 (08:00→20:00)
[2022-08-09 08:03] LABS: HEMATOCRIT 38.1 % (42.0-52.0); MEAN CORPUSCULAR HEMOGLOBIN 30.6 PG (27.0-31.0); MEAN CORPUSCULAR HGB CONC 34.1 g/dL (33.0-36.5); MEAN CORPUSCULAR VOLUME 89.5 FL (78-98); MEAN PLATELET VOLUME 8.1 FL (7.4-10.4); PLATELET COUNT 79 X10'3 (140-440); RED BLOOD COUNT 4.25 X10'6 (4.70-6.10); RED CELL DISTRIBUTION WIDTH 14.1 % (11.5-14.5); WHITE BLOOD COUNT 2.2 X10'3 (4.5-11.0)
--- NOTE | 2022-08-09 08:40 | NUR ---
Page Sent PAGER ID: [phone] MESSAGE: [phone] RUBINA, PT HAS LOW PLTS OF 79. [facility]
[2022-08-09 08:42] LABS: ALBUMIN 3.3 G/DL (3.4-5.0); ANION GAP 6 (8-16); BLOOD UREA NITROGEN 11 MG/DL (7-18); BUN/CREATININE RATIO 18.6 (5.4-32.0); CALCIUM 8.5 MG/DL (8.5-10.1); CHLORIDE 106 MMOL/L (99-107); CREATININE 0.59 MG/DL (0.60-1.10); GLUCOSE 87 MG/DL (70-104); POTASSIUM 3.5 MMOL/L (3.5-5.1); SODIUM 136 MMOL/L (135-145); TOTAL CARBON DIOXIDE 23.6 MMOL/L (24-32); eGFR > 90 ML/MIN
[2022-08-09 09:02] LABS: D-DIMER 0.22 MG/L FEU (0-0.50)
[2022-08-09] MEDS: midodrine 5mg tablet PO SCH ×3 (09:11→16:45)
[2022-08-09] MEDS: docusate sod 100mg capsule PO SCH ×2 (09:12→20:00)
[2022-08-09] MEDS: pantoprazole 40mg Tablet.DR PO SCH (09:12)
[2022-08-09] MEDS: nystatin 500,000 unit/5ML UD oral suspension PO SCH ×3 (09:12→21:00)
[2022-08-09 10:00] VITALS: BP 108/64
--- NOTE | 2022-08-09 11:27 | NUR ---
F/u 08/09: Pt PO continues to be mostly 100% avg MM5 meals meeting estimated needs. Pt now positive for COVID-19 per EMR; continues to meet updated estimated needs. LBM 08/08 per EMR. No nutrition interventions at this time. Will continue to follow. Recommendations: 1. Continue MM5 diet per STAFF NURSE MIDWIFE recs; assist w/ meals PRN 2. Routine bowel care 3. Scaled wt this admit; subsequent weekly scaled weights Addendum: 08/09/22 at [address] Amended: Links added.
--- NOTE | 2022-08-09 11:43 | NUR ---
AK REFUSED HAVING FLUIDS HOOKED UP AND RUNNING, STATES HE DOES NOT NEED THEM, WILL NOTIFY
--- NOTE | 2022-08-09 18:35 | NUR ---
Patient in room [facility] 341. I have received report from Flash ZAPIEN and had the opportunity to ask questions and assume patient care.
--- NOTE | 2022-08-09 18:35 | NUR ---
Problems reprioritized. Patient report given, questions answered & plan of care reviewed with YANNICK ZAPIEN.
[2022-08-09] MEDS: tamsulosin 0.4mg capsule PO SCH (21:00)
[2022-08-09 22:00] VITALS: BP 125/77
[2022-08-09 22:32] LABS: CLARITY,URINE CLEAR (Clear); COLOR,URINE YELLOW (Yellow); GLUCOSE, URINE NEGATIVE (Neg); KETONES,URINE NEGATIVE (Neg); LEUKOCYTE ESTERASE ,URINE NEGATIVE (Neg); NITRITES, URINE NEGATIVE (Neg); OCCULT BLOOD,URINE NEGATIVE (Neg); PROTEIN,URINE NEGATIVE (Neg); UROBILINOGEN,URINE 0.2 E.U/dL (0.2-1.0)
[2022-08-09 22:37] LABS: UA COLLECTION TYPE URINAL
[2022-08-09] MEDS: temazepam 15mg capsule PO PRN (23:03)
[2022-08-10 02:00] VITALS: BP 97/60
[2022-08-10 06:00] VITALS: BP 114/76
--- NOTE | 2022-08-10 06:20 | NUR ---
Problems reprioritized. Patient report given, questions answered & plan of care reviewed with Flash ZAPIEN.
--- NOTE | 2022-08-10 06:25 | NUR ---
Patient in room [facility] 341. I have received report from YANNICK ZAPIEN and had the opportunity to ask questions and assume patient care.
[2022-08-10 06:49] LABS: HEMATOCRIT 37.6 % (42.0-52.0); MEAN CORPUSCULAR HEMOGLOBIN 30.7 PG (27.0-31.0); MEAN CORPUSCULAR HGB CONC 34.6 g/dL (33.0-36.5); MEAN CORPUSCULAR VOLUME 88.7 FL (78-98); MEAN PLATELET VOLUME 8.3 FL (7.4-10.4); PLATELET COUNT 85 X10'3 (140-440); RED BLOOD COUNT 4.24 X10'6 (4.70-6.10); RED CELL DISTRIBUTION WIDTH 14.3 % (11.5-14.5); WHITE BLOOD COUNT 2.8 X10'3 (4.5-11.0)
[2022-08-10 06:59] LABS: D-DIMER 0.21 MG/L FEU (0-0.50)
[2022-08-10 07:26] LABS: ALBUMIN 3.4 G/DL (3.4-5.0); ANION GAP 7 (8-16); BLOOD UREA NITROGEN 14 MG/DL (7-18); BUN/CREATININE RATIO 24.6 (5.4-32.0); C-REACTIVE PROTEIN 0.18 MG/DL (0.0-0.5); CALCIUM 8.5 MG/DL (8.5-10.1); CHLORIDE 105 MMOL/L (99-107); CREATININE 0.57 MG/DL (0.60-1.10); GLUCOSE 89 MG/DL (70-104); POTASSIUM 3.5 MMOL/L (3.5-5.1); SODIUM 138 MMOL/L (135-145); TOTAL CARBON DIOXIDE 25.6 MMOL/L (24-32); eGFR > 90 ML/MIN
[2022-08-10] MEDS: heparin, porcine 5000 units/ml vial SQ SCH ×2 (08:00→20:00)
[2022-08-10] MEDS: K and/or MAG REPLACEMENT MC SCH ×2 (08:00→19:48)
[2022-08-10] MEDS: mineral oil/petrolatum, white cream 60gm jar TP SCH ×2 (08:00→19:56)
[2022-08-10] MEDS: midodrine 5mg tablet PO SCH ×3 (09:03→16:15)
[2022-08-10] MEDS: docusate sod 100mg capsule PO SCH ×2 (09:03→19:56)
[2022-08-10] MEDS: nystatin 500,000 unit/5ML UD oral suspension PO SCH ×3 (09:06→19:56)
[2022-08-10] MEDS: pantoprazole 40mg Tablet.DR PO SCH (09:06)
[2022-08-10] MEDS: HYDROcodone/acetaminophen 5mg/325mg tablet PO PRN ×3 (09:08→23:34)
[2022-08-10 10:00] VITALS: BP 100/64
[2022-08-10 18:00] VITALS: BP 95/58
--- NOTE | 2022-08-10 18:17 | NUR ---
Problems reprioritized. Patient report given, questions answered & plan of care reviewed with lazara santiago.
--- NOTE | 2022-08-10 18:23 | NUR ---
Patient in room [facility] 341. I have received report from RUPALI Vidales and had the opportunity to ask questions and assume patient care.
[2022-08-10] MEDS: tamsulosin 0.4mg capsule PO SCH (19:56)
[2022-08-10] MEDS: temazepam 15mg capsule PO PRN (21:18)
[2022-08-10 23:40] VITALS: BP 98/62
[2022-08-11 06:00] VITALS: BP 83/54
--- NOTE | 2022-08-11 06:32 | NUR ---
Problems reprioritized. Patient report given, questions answered & plan of care reviewed with RUPALI Saravia.
--- NOTE | 2022-08-11 06:35 | NUR ---
Patient in room [facility] 341. I have received report from Kathy and had the opportunity to ask questions and assume patient care.
[2022-08-11 07:41] LABS: HEMATOCRIT 38.9 % (42.0-52.0); HEMOGLOBIN 13.6 g/dl (14.0-17.9); MEAN CORPUSCULAR HEMOGLOBIN 30.8 PG (27.0-31.0); MEAN CORPUSCULAR HGB CONC 34.9 g/dL (33.0-36.5); MEAN CORPUSCULAR VOLUME 88.4 FL (78-98); MEAN PLATELET VOLUME 8.6 FL (7.4-10.4); PLATELET COUNT 89 X10'3 (140-440); RED CELL DISTRIBUTION WIDTH 14.2 % (11.5-14.5)
[2022-08-11 07:53] LABS: D-DIMER 0.21 MG/L FEU (0-0.50)
[2022-08-11] MEDS: K and/or MAG REPLACEMENT MC SCH ×2 (07:59→18:56)
[2022-08-11] MEDS: nystatin 500,000 unit/5ML UD oral suspension PO SCH ×3 (08:02→19:23)
[2022-08-11] MEDS: midodrine 5mg tablet PO SCH ×3 (08:02→17:27)
[2022-08-11] MEDS: pantoprazole 40mg Tablet.DR PO SCH (08:02)
[2022-08-11] MEDS: docusate sod 100mg capsule PO SCH ×2 (08:02→19:23)
[2022-08-11] MEDS: HYDROcodone/acetaminophen 5mg/325mg tablet PO PRN ×2 (08:11→17:27)
[2022-08-11] MEDS: mineral oil/petrolatum, white cream 60gm jar TP SCH ×2 (08:11→19:24)
[2022-08-11 08:19] LABS: ALBUMIN 3.4 G/DL (3.4-5.0); ANION GAP 7 (8-16); BLOOD UREA NITROGEN 18 MG/DL (7-18); BUN/CREATININE RATIO 28.1 (5.4-32.0); CALCIUM 8.9 MG/DL (8.5-10.1); CHLORIDE 104 MMOL/L (99-107); CREATININE 0.64 MG/DL (0.60-1.10); GLUCOSE 83 MG/DL (70-104); POTASSIUM 3.7 MMOL/L (3.5-5.1); SODIUM 138 MMOL/L (135-145); TOTAL CARBON DIOXIDE 27.5 MMOL/L (24-32); eGFR > 90 ML/MIN
[2022-08-11 10:00] VITALS: BP 86/60
[2022-08-11] MEDS: heparin, porcine 5000 units/ml vial SQ SCH ×2 (15:43→19:05)
[2022-08-11 18:00] VITALS: BP 102/56
--- NOTE | 2022-08-11 18:10 | NUR ---
Patient in room [facility] 341. I have received report from RUPALI Saravia and had the opportunity to ask questions and assume patient care.
[2022-08-11] MEDS: magnesium hydroxide 30ml (MOM) UD suspension PO PRN (19:23)
[2022-08-11] MEDS: temazepam 15mg capsule PO PRN (21:34)
[2022-08-11 22:00] VITALS: BP 101/68
[2022-08-12] MEDS: HYDROcodone/acetaminophen 5mg/325mg tablet PO PRN ×3 (01:36→19:27)
[2022-08-12 01:56] VITALS: BP 101/71
[2022-08-12 06:00] VITALS: BP 95/65
--- NOTE | 2022-08-12 06:07 | NUR ---
Problems reprioritized. Patient report given, questions answered & plan of care reviewed with RUPALI Saravia.
--- NOTE | 2022-08-12 06:42 | NUR ---
Patient in room [facility] 341. I have received report from Kathy and had the opportunity to ask questions and assume patient care.
[2022-08-12 06:58] LABS: HEMATOCRIT 37.9 % (42.0-52.0); MEAN CORPUSCULAR HEMOGLOBIN 30.4 PG (27.0-31.0); MEAN CORPUSCULAR HGB CONC 34.3 g/dL (33.0-36.5); MEAN CORPUSCULAR VOLUME 88.6 FL (78-98); MEAN PLATELET VOLUME 8.3 FL (7.4-10.4); PLATELET COUNT 115 X10'3 (140-440); RED BLOOD COUNT 4.27 X10'6 (4.70-6.10); RED CELL DISTRIBUTION WIDTH 14.2 % (11.5-14.5)
[2022-08-12 07:08] LABS: D-DIMER 0.21 MG/L FEU (0-0.50)
[2022-08-12 07:20] LABS: ALBUMIN 3.4 G/DL (3.4-5.0); ANION GAP 7 (8-16); BLOOD UREA NITROGEN 18 MG/DL (7-18); BUN/CREATININE RATIO 22.8 (5.4-32.0); C-REACTIVE PROTEIN 0.06 MG/DL (0.0-0.5); CHLORIDE 102 MMOL/L (99-107); CREATININE 0.79 MG/DL (0.60-1.10); GLUCOSE 84 MG/DL (70-104); POTASSIUM 3.9 MMOL/L (3.5-5.1); SODIUM 137 MMOL/L (135-145); TOTAL CARBON DIOXIDE 28.4 MMOL/L (24-32); eGFR > 90 ML/MIN
[2022-08-12] MEDS: K and/or MAG REPLACEMENT MC SCH ×2 (08:00→19:20)
[2022-08-12] MEDS: heparin, porcine 5000 units/ml vial SQ SCH ×2 (08:00→19:27)
[2022-08-12] MEDS: pantoprazole 40mg Tablet.DR PO SCH (09:16)
[2022-08-12] MEDS: mineral oil/petrolatum, white cream 60gm jar TP SCH ×2 (09:17→19:28)
[2022-08-12] MEDS: midodrine 5mg tablet PO SCH ×3 (09:17→17:15)
[2022-08-12] MEDS: docusate sod 100mg capsule PO SCH ×2 (09:17→19:27)
[2022-08-12] MEDS: nystatin 500,000 unit/5ML UD oral suspension PO SCH ×3 (09:17→19:27)
[2022-08-12] MEDS: dutasteride 0.5 MG capsule PO SCH (09:17)
[2022-08-12 10:00] VITALS: BP 113/62
[2022-08-12 18:00] VITALS: BP 98/68
--- NOTE | 2022-08-12 18:00 | NUR ---
Patient in room [facility] 341. I have received report from RUPALI Saravia and had the opportunity to ask questions and assume patient care.
--- NOTE | 2022-08-12 18:18 | NUR ---
Problems reprioritized. Patient report given, questions answered & plan of care reviewed with Kathy.
[2022-08-12] MEDS: temazepam 15mg capsule PO PRN (21:21)
[2022-08-12 22:00] VITALS: BP 108/67
[2022-08-13] MEDS: HYDROcodone/acetaminophen 5mg/325mg tablet PO PRN ×4 (04:55→20:08)
[2022-08-13 06:00] VITALS: BP 101/68
--- NOTE | 2022-08-13 06:05 | NUR ---
received report from jack haile
--- NOTE | 2022-08-13 06:21 | NUR ---
Problems reprioritized. Patient report given, questions answered & plan of care reviewed with RUPALI Guerra.
[2022-08-13] MEDS: K and/or MAG REPLACEMENT MC SCH ×2 (08:00→20:00)
[2022-08-13] MEDS: heparin, porcine 5000 units/ml vial SQ SCH ×2 (08:17→20:08)
[2022-08-13] MEDS: midodrine 5mg tablet PO SCH ×3 (08:17→16:00)
[2022-08-13] MEDS: docusate sod 100mg capsule PO SCH ×2 (08:17→20:07)
[2022-08-13] MEDS: dutasteride 0.5 MG capsule PO SCH (08:17)
[2022-08-13] MEDS: nystatin 500,000 unit/5ML UD oral suspension PO SCH ×3 (08:17→20:08)
[2022-08-13] MEDS: pantoprazole 40mg Tablet.DR PO SCH (08:17)
[2022-08-13] MEDS: mineral oil/petrolatum, white cream 60gm jar TP SCH ×2 (08:17→20:22)
[2022-08-13 10:00] VITALS: BP 86/50
--- NOTE | 2022-08-13 18:10 | NUR ---
gave report to october,
[2022-08-13 18:30] VITALS: BP 91/56
[2022-08-13] MEDS: temazepam 15mg capsule PO PRN (21:49)
[2022-08-13 22:00] VITALS: BP 98/59
[2022-08-14 06:00] VITALS: BP 91/56
--- NOTE | 2022-08-14 06:48 | NUR ---
Patient in room [facility] 341. I have received report from Scottie rn and had the opportunity to ask questions and assume patient care.
--- NOTE | 2022-08-14 07:17 | NUR ---
received report from night nurse Valorie RN. Assumed care of patient. Patient resting comfortably at this time will continue to monitor.
[2022-08-14] MEDS: docusate sod 100mg capsule PO SCH ×2 (07:49→20:53)
[2022-08-14] MEDS: midodrine 5mg tablet PO SCH ×3 (07:49→16:08)
[2022-08-14] MEDS: pantoprazole 40mg Tablet.DR PO SCH (07:49)
[2022-08-14] MEDS: nystatin 500,000 unit/5ML UD oral suspension PO SCH ×3 (07:50→20:52)
[2022-08-14] MEDS: heparin, porcine 5000 units/ml vial SQ SCH ×2 (07:50→20:53)
[2022-08-14] MEDS: HYDROcodone/acetaminophen 5mg/325mg tablet PO PRN ×2 (07:51→16:07)
[2022-08-14] MEDS: dutasteride 0.5 MG capsule PO SCH (07:54)
[2022-08-14] MEDS: mineral oil/petrolatum, white cream 60gm jar TP SCH ×2 (07:55→20:53)
[2022-08-14] MEDS: K and/or MAG REPLACEMENT MC SCH ×2 (08:00→20:00)
[2022-08-14 10:00] VITALS: BP 93/64
[2022-08-14 17:00] VITALS: BP 98/69
--- NOTE | 2022-08-14 17:53 | NUR ---
Student documentation: I have reviewed and agree with all interventions, assessments performed and documented by Mariah YUN.
[2022-08-14 18:30] VITALS: BP 103/66
[2022-08-14] MEDS: temazepam 15mg capsule PO PRN (20:52)
[2022-08-14 22:00] VITALS: BP 107/70
[2022-08-15] MEDS: HYDROcodone/acetaminophen 5mg/325mg tablet PO PRN ×3 (00:54→12:45)
[2022-08-15 06:00] VITALS: BP 91/68
--- NOTE | 2022-08-15 06:55 | NUR ---
Patient in room [facility] 341. I have received report from Scottie rn and had the opportunity to ask questions and assume patient care.
--- NOTE | 2022-08-15 07:05 | NUR ---
Received report from October RN assumed care of patient. Patient resting comfortably in bed at this time. Will continue to monitor.
[2022-08-15] MEDS: pantoprazole 40mg Tablet.DR PO SCH (07:30)
[2022-08-15] MEDS: K and/or MAG REPLACEMENT MC SCH ×2 (08:00→20:00)
[2022-08-15] MEDS: nystatin 500,000 unit/5ML UD oral suspension PO SCH ×3 (08:53→20:55)
[2022-08-15] MEDS: heparin, porcine 5000 units/ml vial SQ SCH ×2 (08:54→20:54)
[2022-08-15] MEDS: docusate sod 100mg capsule PO SCH ×2 (08:57→20:54)
[2022-08-15] MEDS: midodrine 5mg tablet PO SCH ×3 (08:57→16:56)
[2022-08-15] MEDS: dutasteride 0.5 MG capsule PO SCH (08:57)
[2022-08-15] MEDS: mineral oil/petrolatum, white cream 60gm jar TP SCH ×2 (08:57→21:12)
[2022-08-15 11:00] VITALS: BP 107/62
[2022-08-15 17:08] VITALS: BP 107/70
--- NOTE | 2022-08-15 18:33 | NUR ---
patient appears comfortable in room responds when spoken to but sleeping most of day. All cares given. I agree with charting of Karolyn YUN
[2022-08-15] MEDS: tamsulosin 0.4mg capsule PO SCH (20:54)
[2022-08-15 22:00] VITALS: BP 103/84
[2022-08-16] MEDS: HYDROcodone/acetaminophen 5mg/325mg tablet PO PRN ×3 (03:45→20:47)
--- NOTE | 2022-08-16 06:18 | NUR ---
Patient in room [facility] 341. I have received report from Valorie RN and had the opportunity to ask questions and assume patient care.
[2022-08-16 06:58] LABS: BASOPHILS % (AUTO) 0.2 % (0-1); EOSINOPHILS # (AUTO) 0.1 X10'3 (0-0.9); EOSINOPHILS % (AUTO) 2.6 % (0-6); HEMATOCRIT 37.2 % (42.0-52.0); HEMOGLOBIN 12.8 g/dl (14.0-17.9); LYMPHOCYTES # (AUTO) 1.9 X10'3 (1.1-4.8); LYMPHOCYTES % (AUTO) 43.3 % (21-51); MEAN CORPUSCULAR HEMOGLOBIN 30.7 PG (27.0-31.0); MEAN CORPUSCULAR HGB CONC 34.4 g/dL (33.0-36.5); MEAN CORPUSCULAR VOLUME 89.3 FL (78-98); MEAN PLATELET VOLUME 8.4 FL (7.4-10.4); MONOCYTES # (AUTO) 0.3 X10'3 (0-0.9); MONOCYTES % (AUTO) 6.9 % (2-12); NEUTROPHILS # (AUTO) 2.1 X10'3 (1.8-7.7); PLATELET COUNT 202 X10'3 (140-440); RED BLOOD COUNT 4.16 X10'6 (4.70-6.10); RED CELL DISTRIBUTION WIDTH 14.1 % (11.5-14.5); WHITE BLOOD COUNT 4.5 X10'3 (4.5-11.0)
[2022-08-16 07:00] VITALS: BP 91/55
[2022-08-16] MEDS: K and/or MAG REPLACEMENT MC SCH ×2 (08:00→20:00)
[2022-08-16] MEDS: midodrine 5mg tablet PO SCH ×3 (08:02→18:49)
[2022-08-16] MEDS: dutasteride 0.5 MG capsule PO SCH (08:02)
[2022-08-16] MEDS: nystatin 500,000 unit/5ML UD oral suspension PO SCH ×3 (08:02→20:43)
[2022-08-16] MEDS: pantoprazole 40mg Tablet.DR PO SCH (08:02)
[2022-08-16] MEDS: docusate sod 100mg capsule PO SCH ×2 (08:03→20:00)
[2022-08-16] MEDS: mineral oil/petrolatum, white cream 60gm jar TP SCH ×2 (08:08→20:38)
[2022-08-16] MEDS: heparin, porcine 5000 units/ml vial SQ SCH ×2 (08:08→20:44)
[2022-08-16 10:00] VITALS: BP 91/62
--- NOTE | 2022-08-16 14:46 | NUR ---
Helped patient with personal hygiene and oral care. Washed patient hair and braided hair. Linen change and clean gown.
[2022-08-16 18:00] VITALS: BP 102/56
[2022-08-16 22:00] VITALS: BP 102/75
--- NOTE | 2022-08-17 01:55 | NUR ---
REVIEWED CERTIFIED HAND THERAPIST ASSESSMENT AND IN AGREEMENT. B/P'S HAVE IMPROVED FROM PREVIOUS FOLLOWING MEDICATION ADJUSTMENTS PRIOR.
[2022-08-17 06:00] VITALS: BP 100/66
--- NOTE | 2022-08-17 06:37 | NUR ---
Problems reprioritized. Patient report given, questions answered & plan of care reviewed with Tra RN.
[2022-08-17] MEDS: K and/or MAG REPLACEMENT MC SCH ×2 (08:00→19:14)
[2022-08-17] MEDS: midodrine 5mg tablet PO SCH ×3 (08:09→15:39)
[2022-08-17] MEDS: nystatin 500,000 unit/5ML UD oral suspension PO SCH ×3 (08:09→21:00)
[2022-08-17] MEDS: dutasteride 0.5 MG capsule PO SCH (08:09)
[2022-08-17] MEDS: heparin, porcine 5000 units/ml vial SQ SCH ×2 (08:09→19:16)
[2022-08-17] MEDS: mineral oil/petrolatum, white cream 60gm jar TP SCH ×2 (08:10→19:17)
[2022-08-17] MEDS: docusate sod 100mg capsule PO SCH ×2 (08:10→19:16)
[2022-08-17] MEDS: pantoprazole 40mg Tablet.DR PO SCH (08:10)
[2022-08-17 10:00] VITALS: BP 99/67
[2022-08-17] MEDS ORDERED: MIDO5TAB4 PO (14:53)
[2022-08-17] MEDS ORDERED: AVO0.5C PO (14:53)
[2022-08-17 18:00] VITALS: BP 99/81
--- NOTE | 2022-08-17 18:52 | NUR ---
Patient in room [facility] 341. I have received report from TRA RN and had the opportunity to ask questions and assume patient care.
[2022-08-17] MEDS: HYDROcodone/acetaminophen 5mg/325mg tablet PO PRN (19:17)
[2022-08-17] MEDS: temazepam 15mg capsule PO PRN (21:02)
[2022-08-17 22:00] VITALS: BP 93/62
[2022-08-18 06:00] VITALS: BP 92/54
--- NOTE | 2022-08-18 06:00 | NUR ---
Patient in room [facility] 341. I have received report from Leisa ZAPIEN and had the opportunity to ask questions and assume patient care.
--- NOTE | 2022-08-18 06:06 | NUR ---
Problems reprioritized. Patient report given, questions answered & plan of care reviewed with BLANCA YUN.
[2022-08-18] MEDS: nystatin 500,000 unit/5ML UD oral suspension PO SCH (07:36)
[2022-08-18] MEDS: heparin, porcine 5000 units/ml vial SQ SCH (07:36)
[2022-08-18] MEDS: HYDROcodone/acetaminophen 5mg/325mg tablet PO PRN (07:37)
[2022-08-18] MEDS: midodrine 5mg tablet PO SCH (07:37)
[2022-08-18] MEDS: tamsulosin 0.4mg capsule PO SCH (07:37)
[2022-08-18] MEDS: docusate sod 100mg capsule PO SCH (07:37)
[2022-08-18] MEDS: pantoprazole 40mg Tablet.DR PO SCH (07:37)
[2022-08-18] MEDS: dutasteride 0.5 MG capsule PO SCH (07:38)
[2022-08-18] MEDS: K and/or MAG REPLACEMENT MC SCH (07:44)
[2022-08-18] MEDS: mineral oil/petrolatum, white cream 60gm jar TP SCH (07:45)
--- NOTE | 2022-08-18 10:15 | NUR ---
Patient discharged to [facility] in [place], [place]. Patient was helped to get dressed and hair combed. All patient belongings were gathered. Patient appropriate for transfer, IV removed. Called report to Sabiha YUN at [facility]. [facility] transport picked patient up. Patient left with [facility] transport personnel.
== END 2022-08-18 10:40 | DRG 501 ==
LOC: ER 10:57 → ED HOLD 21:56 → EDBEDREQ 23:01 → SUR 3N 23:18
PROVIDERS: ADMIT Family Medicine; ATTEND Family Medicine
DX: N40.1 Benign prostatic hyperplasia with lower urinary tract symptoms (principal); G93.41 Metabolic encephalopathy; U07.1 COVID-19; E87.20 Acidosis, unspecified; B37.0 Candidal stomatitis; E87.1 Hypo-osmolality and hyponatremia; N13.8 Other obstructive and reflux uropathy; E78.5 Hyperlipidemia, unspecified; F20.9 Schizophrenia, unspecified; G24.01 Drug induced subacute dyskinesia; H91.93 Unspecified hearing loss, bilateral; R13.10 Dysphagia, unspecified; J44.9 Chronic obstructive pulmonary disease, unspecified; Z56.0 Unemployment, unspecified; Z72.0 Tobacco use; Z78.9 Other specified health status; Z86.73 Personal history of transient ischemic attack (TIA), and cerebral infarction without residual deficits; Z88.6 Allergy status to analgesic agent; Z88.8 Allergy status to other drugs, medicaments and biological substances; Z71.6 Tobacco abuse counseling
CPT/HCPCS: 36415; 70450; 71045; 80048; 80053; 80061; 80305; 80320; 81001; 81003; 82550; 83036; 83605; 83690; 83735; 83880; 84100; 84132; 84145; 84484; 85007; 85008; 85025; 85027; 85379; 85610; 85730; 86140; 87081; 87088; 87502; 87503; 87811; 92508; 92616; 93005; 97110; 97116; 97161; 97530; 99285; A4349; A4649; A5200; A6212; A6213; A6250; A6258; A6449; G0378; J0696; J1644; J2270; J7030; J7040

== ENCOUNTER 2023-02-20 08:31 | Emergency (ER) | payer MEDICAID ==
[~2023-02-20] VITALS: Ht 180.3 cm; Wt 63.6 kg
[~2023-02-20 08:31] MED LIST changes: +AVO0.5C PO; -BENZ2TAB7 PO; +FLO0.4C PO; -LAMO100T PO; +LANO454C3 TP; +MIDO5TAB4 PO; -MINE120C5 TP; -NICO-631 TD; -NICO-907 BC; +ONDA-103 PO; -RISP2TAB85 PO; -SERT-434 PO
[2023-02-20 08:37] VITALS: BP 119/81; PULSE 101; TEMP 98.3; O2SAT 96
[2023-02-20 08:58] LABS: BASOPHILS % (AUTO) 0.6 % (0-1); EOSINOPHILS # (AUTO) 0.2 X10'3 (0-0.9); EOSINOPHILS % (AUTO) 3.3 % (0-6); HEMATOCRIT 42.4 % (42.0-52.0); HEMOGLOBIN 14.6 g/dl (14.0-17.9); LYMPHOCYTES # (AUTO) 1.5 X10'3 (1.1-4.8); LYMPHOCYTES % (AUTO) 28.6 % (21-51); MEAN CORPUSCULAR HEMOGLOBIN 30.9 PG (27.0-31.0); MEAN CORPUSCULAR HGB CONC 34.3 g/dL (33.0-36.5); MEAN CORPUSCULAR VOLUME 90.1 FL (78-98); MEAN PLATELET VOLUME 7.6 FL (7.4-10.4); MONOCYTES # (AUTO) 0.4 X10'3 (0-0.9); MONOCYTES % (AUTO) 6.7 % (2-12); NEUTROPHILS # (AUTO) 3.3 X10'3 (1.8-7.7); NEUTROPHILS % (AUTO) 60.8 % (42-75); PLATELET COUNT 170 X10'3 (140-440); RED BLOOD COUNT 4.71 X10'6 (4.70-6.10); RED CELL DISTRIBUTION WIDTH 13.9 % (11.5-14.5); WHITE BLOOD COUNT 5.4 X10'3 (4.5-11.0)
[2023-02-20 09:11] LABS: ALANINE AMINOTRANSFERASE 13 U/L (12-78); ALBUMIN/GLOBULIN RATIO 1.4 (1.1-1.5); ALKALINE PHOSPHATASE 67 IU/L (46-116); ANION GAP 9 (8-16); ASPARTATE AMINO TRANSFERASE 12 U/L (10-37); BILIRUBIN,TOTAL 0.4 MG/DL (0.1-1.0); BLOOD UREA NITROGEN 12 MG/DL (7-18); BUN/CREATININE RATIO 17.1 (10.0-20.0); CALCIUM 8.9 MG/DL (8.5-10.1); CHLORIDE 106 MMOL/L (99-107); GLUCOSE 142 MG/DL (70-104); POTASSIUM 3.7 MMOL/L (3.5-5.1); SODIUM 138 MMOL/L (135-145); TOTAL CARBON DIOXIDE 22.9 MMOL/L (24-32); TOTAL PROTEIN 6.8 G/DL (6.4-8.2); eGFR > 90 ML/MIN
[2023-02-20 12:35] VITALS: RESP 18
[2023-02-20] MEDS ORDERED: normal saline 1000ML IV soln IVB ONE (12:40)
[2023-02-20 12:42] LABS: CLARITY,URINE SLIGHTLY CLOUDY (Clear); COLOR,URINE YELLOW (Yellow); GLUCOSE, URINE NEGATIVE (Neg); KETONES,URINE NEGATIVE (Neg); LEUKOCYTE ESTERASE ,URINE NEGATIVE (Neg); NITRITES, URINE NEGATIVE (Neg); OCCULT BLOOD,URINE NEGATIVE (Neg); PH,URINE 5.5 (4.8-8.0); PROTEIN,URINE NEGATIVE (Neg); UROBILINOGEN,URINE 0.2 E.U/dL (0.2-1.0)
[2023-02-20 13:24] LABS: UA COLLECTION TYPE CLN CATCH MIDSTREAM
[2023-02-20 13:44] LABS: BACTERIA,URINE FEW /HPF (Neg); MUCUS STRANDS MODERATE /LPF (Neg); RBC,URINE NONE SEEN /HPF (0-2); SQUAMOUS EPITHELIAL CELL,UR FEW /LPF (FEW); WBC,URINE 0-4 /HPF (0-4)
[2023-02-21] MEDS ORDERED: NAPR-996 PO ×2 (09:41)
== END 2023-02-20 14:09 | disposition home or self-care (01) ==
LOC: ER 08:31
DX: R53.1 Weakness (principal); F31.9 Bipolar disorder, unspecified; Z56.0 Unemployment, unspecified
CPT/HCPCS: 36415; 71045; 80053; 81001; 83880; 84484; 85025; 93005; 99285; J7030

== ENCOUNTER 2023-02-21 07:54 | Emergency (ER) | payer MEDICAID ==
[~2023-02-21] VITALS: Ht 180.3 cm; Wt 77.3 kg
[2023-02-21 08:00] VITALS: BP 114/81; PULSE 106; RESP 18; TEMP 97.5; O2SAT 97
[2023-02-21] MEDS ORDERED: NAPR-996 PO (09:41)
== END 2023-02-21 09:51 | disposition home or self-care (01) ==
LOC: ER 07:54
DX: R53.1 Weakness (principal); F31.9 Bipolar disorder, unspecified; Z88.6 Allergy status to analgesic agent; Z79.899 Other long term (current) drug therapy; Z56.0 Unemployment, unspecified
CPT/HCPCS: 99283

== ENCOUNTER 2023-02-24 12:08 | Emergency (ER) | payer MEDICAID ==
[~2023-02-24] VITALS: Ht 180.3 cm; Wt 77.3 kg
[~2023-02-24 12:08] MED LIST changes: +NAPR-996 PO
--- NOTE | 2023-02-24 13:21 | NUR ---
PT ABLE TO TRANSFER SELF FROM WHEEL CHAIR TO BED WITH NO ASSISTANCE. PT STATES " I CANNOT MOVE MY ARMS OR LEGS". WHEN CALLED FROM THE LOBBY PATIENT RAISED ARM.
[2023-02-24] MEDS ORDERED: NYST1000 PO ×2 (14:20)
[2023-02-24 16:15] LABS: BASOPHILS % (AUTO) 0.4 % (0-1); EOSINOPHILS # (AUTO) 0.1 X10'3 (0-0.9); EOSINOPHILS % (AUTO) 2.1 % (0-6); HEMATOCRIT 43.3 % (42.0-52.0); HEMOGLOBIN 14.8 g/dl (14.0-17.9); LYMPHOCYTES # (AUTO) 1.5 X10'3 (1.1-4.8); LYMPHOCYTES % (AUTO) 26.3 % (21-51); MEAN CORPUSCULAR HEMOGLOBIN 30.9 PG (27.0-31.0); MEAN CORPUSCULAR HGB CONC 34.2 g/dL (33.0-36.5); MEAN CORPUSCULAR VOLUME 90.3 FL (78-98); MEAN PLATELET VOLUME 7.8 FL (7.4-10.4); MONOCYTES # (AUTO) 0.4 X10'3 (0-0.9); MONOCYTES % (AUTO) 7.6 % (2-12); NEUTROPHILS # (AUTO) 3.6 X10'3 (1.8-7.7); NEUTROPHILS % (AUTO) 63.6 % (42-75); PLATELET COUNT 172 X10'3 (140-440); RED CELL DISTRIBUTION WIDTH 13.5 % (11.5-14.5); WHITE BLOOD COUNT 5.6 X10'3 (4.5-11.0)
[2023-02-24 16:27] LABS: ALANINE AMINOTRANSFERASE 17 U/L (12-78); ALBUMIN 3.9 G/DL (3.4-5.0); ALBUMIN/GLOBULIN RATIO 1.3 (1.1-1.5); ALKALINE PHOSPHATASE 67 IU/L (46-116); ANION GAP 12 (8-16); ASPARTATE AMINO TRANSFERASE 12 U/L (10-37); BILIRUBIN,TOTAL 0.4 MG/DL (0.1-1.0); BLOOD UREA NITROGEN 12 MG/DL (7-18); BUN/CREATININE RATIO 18.8 (10.0-20.0); CALCIUM 8.8 MG/DL (8.5-10.1); CHLORIDE 105 MMOL/L (99-107); CREATININE 0.64 MG/DL (0.60-1.10); GLUCOSE 125 MG/DL (70-104); POTASSIUM 3.7 MMOL/L (3.5-5.1); SODIUM 140 MMOL/L (135-145); TOTAL CARBON DIOXIDE 22.9 MMOL/L (24-32); TOTAL PROTEIN 6.9 G/DL (6.4-8.2); eGFR > 90 ML/MIN
--- NOTE | 2023-02-24 16:33 | NUR ---
PT IN ROOM STANDING TO GIVE URINE SAMPLE.
[2023-02-24 16:37] LABS: CLARITY,URINE CLEAR (Clear); COLOR,URINE YELLOW (Yellow); GLUCOSE, URINE NEGATIVE (Neg); KETONES,URINE TRACE mg/dl (Neg); LEUKOCYTE ESTERASE ,URINE NEGATIVE (Neg); NITRITES, URINE NEGATIVE (Neg); OCCULT BLOOD,URINE NEGATIVE (Neg); PROTEIN,URINE NEGATIVE (Neg); UA COLLECTION TYPE CLN CATCH MIDSTREAM; UROBILINOGEN,URINE 0.2 E.U/dL (0.2-1.0)
[2023-02-24 16:37] LABS: ETHANOL < 10 MG/DL (<10)
[2023-02-24 16:59] LABS: URINE AMPHETAMINE SCREEN NEGATIVE (Neg); URINE BARBITUATE SCREEN NEGATIVE (Neg); URINE BENZODIAZEPINES SCREEN NEGATIVE (Neg); URINE CANNABINOID SCREEN NEGATIVE (Neg); URINE COCAINE SCREEN NEGATIVE (Neg); URINE METHADONE SCREEN NEGATIVE (Neg); URINE OPIATE SCREEN NEGATIVE (Neg); URINE PHENCYCLIDINE SCREEN NEGATIVE (Neg)
--- NOTE | 2023-02-24 17:09 | NUR ---
christine sent pt packet to [facility]
--- NOTE | 2023-02-24 17:36 | NUR ---
PT AMBULATED FROM FAST TRACK TO OVERFLOW.
--- NOTE | 2023-02-24 17:42 | NUR ---
Received patient to OF bed #25. Pt is at bedside eating dinner.
--- NOTE | 2023-02-24 18:15 | NUR ---
Pt is a plesant meseret looks older than stated age. Pt reports he is here "because I am weak." Pt denies SI, HI, VH. Pt endorese auditory hallucinations, but doesn't elaborate. Pt may have some thought blocking occurring. Pt has a history of Schizophrenia. Looking in ext med rec pt is on [facility] Invega last filled on 01/08/23. Pt reports he lives by himself.
[2023-02-24] MEDS ORDERED: acetaminophen 325mg tablet PO ONE (18:40)
--- NOTE | 2023-02-24 18:58 | NUR ---
Patient lays in bed. He is well oriented. W/D, he has good color. Patient speaks quietly. Patient ambulates with a normal gait. Patient complains of bilateral leg numbness that he states is painful and chronic. Tylenol was given for pain. Patient also requested medication to help with sleep. Trazadone will be given at 2000 hours.
[2023-02-24] MEDS ORDERED: traZODone 50mg tablet PO SCH (20:00)
--- NOTE | 2023-02-24 20:33 | NUR ---
Patient remains awake, he takes his night Trazadone. He denies S/I or H/I. He hears audible hallucinations but can't describe them. He denies visual hallucinations.
--- NOTE | 2023-02-24 22:18 | NUR ---
Patient continues to complain of bilateral calf and heel pain, "numbness too." Patient was given Tylenol, he states it did not help.
--- NOTE | 2023-02-24 22:33 | NUR ---
Patient denies taking home medications, he presents with some thought blocking and is difficult to evaluate.
[2023-02-24] MEDS ORDERED: ibuprofen tablet 400 MG TABLET PO ONE (23:10)
[2023-02-24] MEDS ORDERED: diphenhydrAMINE 25mg capsule PO ONE (23:10)
--- NOTE | 2023-02-25 00:04 | NUR ---
Patient states his leg pain has resolved. He declined Ibuprofen. PO Benadryl was given for sleep.
--- NOTE | 2023-02-25 01:38 | NUR ---
Patient is now sleeping on his right side. No distress noted.
--- NOTE | 2023-02-25 03:32 | NUR ---
Patient awoke, requested the time, he then returned to sleep.
--- NOTE | 2023-02-25 04:25 | NUR ---
Sleeping well, no distress.
--- NOTE | 2023-02-25 05:43 | NUR ---
Patients mother: [phone] Patients sister, Arleen Armstrong: [phone]
[2023-02-25 06:17] VITALS: BP 114/177; PULSE 72; TEMP 98.2; O2SAT 96
--- NOTE | 2023-02-25 07:01 | NUR ---
Patient sleeping on his right side. No distress observed. Continue to monitor.
--- NOTE | 2023-02-25 08:19 | NUR ---
Patient eating breakfast. No distress observed. Continue to monitor.
[2023-02-25 08:25] VITALS: RESP 17
--- NOTE | 2023-02-25 08:55 | NUR ---
GOPAL, Guera, evaluating patient. No distress observed. Continue to monitor.
--- NOTE | 2023-02-25 09:43 | NUR ---
Patient was not placed on a hold but needs a safety plan to go home by himself. [facility], Guera, is referring to [facility] Manager Cardiovascular for [facility]HSS or homehealth care. RN to put in consult. Continue to monitor.
--- NOTE | 2023-02-25 09:54 | NUR ---
RN sent Directory Clerk page for evaluation.
--- NOTE | 2023-02-25 11:25 | NUR ---
RN advised patient that the doctor will not allow patient to stay for social media strategist eval. Patient states I can't go home. RN explained that it's there or going to [facility]. Patient going home via Tax[employer]. Continue to monitor.
--- NOTE | 2023-02-25 12:27 | NUR ---
Patient eating lunch. No distress observed. Continue to monitor.
== END 2023-02-25 14:50 | disposition home or self-care (01) ==
LOC: ER 12:09
DX: B37.0 Candidal stomatitis (principal); Z20.822 Contact with and (suspected) exposure to COVID-19; F99 Mental disorder, not otherwise specified; Z76.5 Malingerer [conscious simulation]; Z86.73 Personal history of transient ischemic attack (TIA), and cerebral infarction without residual deficits; Z56.0 Unemployment, unspecified; Z88.8 Allergy status to other drugs, medicaments and biological substances
CPT/HCPCS: 36415; 80053; 80305; 80320; 81003; 84443; 85025; 87811; 99284; Q0163; 99285

== ENCOUNTER 2023-03-02 11:02 | Emergency (ER) | payer MEDICAID ==
[~2023-03-02] VITALS: Ht 180.3 cm; Wt 79.5 kg
[2023-03-02 11:37] VITALS: BP 110/85; PULSE 118; RESP 15; O2SAT 97
--- NOTE | 2023-03-02 12:29 | NUR ---
[facility] CALLED FOR PATIENT EST TIME 5 MIN.
== END 2023-03-02 12:32 | disposition home or self-care (01) ==
LOC: ER 11:02
DX: F41.9 Anxiety disorder, unspecified (principal); F31.9 Bipolar disorder, unspecified; Z88.6 Allergy status to analgesic agent; Z88.8 Allergy status to other drugs, medicaments and biological substances
CPT/HCPCS: 99283

== ENCOUNTER 2023-03-03 18:32 | Emergency (ER) | payer MEDICAID ==
[~2023-03-03] VITALS: Ht 180.3 cm; Wt 79.5 kg
[2023-03-03 21:09] VITALS: TEMP 97.8
[2023-03-04] MEDS ORDERED: normal saline 1000ML IV soln IVB ONE ×2 (04:50→06:50)
[2023-03-04] MEDS ORDERED: LORazepam 2 mg/ml vial IV ONE (04:50)
[2023-03-04 05:24] LABS: HEMOGLOBIN 15.8 g/dl (14.0-17.9)
[2023-03-04 05:25] LABS: BASOPHILS % (AUTO) 0.2 % (0-1); EOSINOPHILS % (AUTO) 0.4 % (0-6); HEMATOCRIT 46.7 % (42.0-52.0); LYMPHOCYTES # (AUTO) 1.2 X10'3 (1.1-4.8); LYMPHOCYTES % (AUTO) 14.7 % (21-51); MEAN CORPUSCULAR HEMOGLOBIN 30.8 PG (27.0-31.0); MEAN CORPUSCULAR HGB CONC 33.9 g/dL (33.0-36.5); MEAN CORPUSCULAR VOLUME 90.9 FL (78-98); MEAN PLATELET VOLUME 8.5 FL (7.4-10.4); MONOCYTES # (AUTO) 0.6 X10'3 (0-0.9); MONOCYTES % (AUTO) 7.8 % (2-12); NEUTROPHILS # (AUTO) 6.2 X10'3 (1.8-7.7); NEUTROPHILS % (AUTO) 76.9 % (42-75); PLATELET COUNT 183 X10'3 (140-440); RED BLOOD COUNT 5.14 X10'6 (4.70-6.10); RED CELL DISTRIBUTION WIDTH 13.5 % (11.5-14.5); WHITE BLOOD COUNT 8.1 X10'3 (4.5-11.0)
[2023-03-04 05:26] LABS: BILIRUBIN,URINE SMALL (Neg); CLARITY,URINE CLEAR (Clear); GLUCOSE, URINE NEGATIVE (Neg); KETONES,URINE TRACE mg/dl (Neg); LEUKOCYTE ESTERASE ,URINE NEGATIVE (Neg); NITRITES, URINE NEGATIVE (Neg); OCCULT BLOOD,URINE NEGATIVE (Neg); PH,URINE 5.5 (4.8-8.0); PROTEIN,URINE NEGATIVE (Neg)
[2023-03-04 05:33] LABS: ALANINE AMINOTRANSFERASE 16 U/L (12-78); ALBUMIN 4.3 G/DL (3.4-5.0); ALBUMIN/GLOBULIN RATIO 1.4 (1.1-1.5); ALKALINE PHOSPHATASE 66 IU/L (46-116); ANION GAP 15 (8-16); ASPARTATE AMINO TRANSFERASE 10 U/L (10-37); BILIRUBIN,TOTAL 0.7 MG/DL (0.1-1.0); BLOOD UREA NITROGEN 24 MG/DL (7-18); BUN/CREATININE RATIO 24.7 (10.0-20.0); CALCIUM 9.6 MG/DL (8.5-10.1); CHLORIDE 101 MMOL/L (99-107); CREATININE 0.97 MG/DL (0.60-1.10); GLUCOSE 145 MG/DL (70-104); SODIUM 140 MMOL/L (135-145); TOTAL CARBON DIOXIDE 24.5 MMOL/L (24-32); TOTAL PROTEIN 7.4 G/DL (6.4-8.2); eCRCL 82 ML/MIN; eGFR 78 ML/MIN
[2023-03-04 05:37] LABS: CREATINE KINASE 71 U/L (39-308); MAGNESIUM 2.4 MG/DL (1.5-2.4)
[2023-03-04 05:43] LABS: URINE AMPHETAMINE SCREEN NEGATIVE (Neg); URINE BARBITUATE SCREEN NEGATIVE (Neg); URINE BENZODIAZEPINES SCREEN NEGATIVE (Neg); URINE CANNABINOID SCREEN NEGATIVE (Neg); URINE COCAINE SCREEN NEGATIVE (Neg); URINE METHADONE SCREEN NEGATIVE (Neg); URINE OPIATE SCREEN NEGATIVE (Neg); URINE PHENCYCLIDINE SCREEN NEGATIVE (Neg)
[2023-03-04 05:53] VITALS: BP 111/81; PULSE 80; RESP 16; O2SAT 99
[2023-03-04 05:55] LABS: COLOR,URINE DARK YELLOW (Yellow); UA COLLECTION TYPE STRAIGHT CATH
--- NOTE | 2023-03-04 06:15 | NUR ---
FIRST CONTACT WITH PT. FOUND RESTING IN BED, RR EVEN AND UNLABORED. PT AWAITING RE-EVAL. STATES HE TAKES CARE OF HIMSELF AT HOME, LIVES ALONE. NO DISTRESS NOTED, WILL CONTINUE TO MONITOR. VSS.
--- NOTE | 2023-03-04 06:59 | NUR ---
PT PROVIDED WITH WATER AND CRACKERS PER MD REQUEST. TOLERATING WELL, BREAKFAST TRAY ORDERED. NO DISTRESS.
--- NOTE | 2023-03-04 08:43 | NUR ---
BREAKFAST TRAY PROVIDED. PT SITTING UP, TOLERATING WELL. PT APPEARED WEAK WHEN SITTING UP, BUT SAT UP WITH MINIMAL ASSISTANCE.
--- NOTE | 2023-03-04 09:05 | NUR ---
PT AMBULATED APPROX 50 FEET WITH STANDBY ASSISTANCE. NURSE AT SIDE FOR WALK. RETURNED TO BED WITHOUT INCIDENT.
== END 2023-03-04 09:38 | disposition home or self-care (01) ==
LOC: ER 18:33
DX: R53.1 Weakness (principal); R50.9 Fever, unspecified; I95.9 Hypotension, unspecified; F31.9 Bipolar disorder, unspecified; Z88.6 Allergy status to analgesic agent
CPT/HCPCS: 36415; 71045; 80053; 80305; 81003; 82550; 83605; 83735; 84145; 84484; 85025; 87040; 93005; 96374; 99285; J2060; J7030; C1758

== ENCOUNTER 2023-03-07 11:12 | Inpatient (IN) | payer MEDICAID ==
[~2023-03-07] VITALS: Ht 180.3 cm; Wt 79.5 kg
--- NOTE | 2023-03-07 11:24 | NUR ---
TO CT VIA [facility].
[2023-03-07 11:36] LABS: BASOPHILS % (AUTO) 0.5 % (0-1); EOSINOPHILS # (AUTO) 0.1 X10'3 (0-0.9); EOSINOPHILS % (AUTO) 2.6 % (0-6); HEMATOCRIT 40.8 % (42.0-52.0); LYMPHOCYTES # (AUTO) 1.3 X10'3 (1.1-4.8); MEAN CORPUSCULAR HEMOGLOBIN 30.5 PG (27.0-31.0); MEAN CORPUSCULAR HGB CONC 34.3 g/dL (33.0-36.5); MEAN CORPUSCULAR VOLUME 88.9 FL (78-98); MEAN PLATELET VOLUME 8.1 FL (7.4-10.4); MONOCYTES # (AUTO) 0.3 X10'3 (0-0.9); MONOCYTES % (AUTO) 7.1 % (2-12); NEUTROPHILS # (AUTO) 2.8 X10'3 (1.8-7.7); NEUTROPHILS % (AUTO) 61.8 % (42-75); PLATELET COUNT 167 X10'3 (140-440); RED BLOOD COUNT 4.59 X10'6 (4.70-6.10); RED CELL DISTRIBUTION WIDTH 13.4 % (11.5-14.5); WHITE BLOOD COUNT 4.6 X10'3 (4.5-11.0)
[2023-03-07 11:45] LABS: APTT 25 SECONDS (22-32); PROTHROMBIN TIME 10.8 SECONDS (9.0-12.0)
[2023-03-07 11:47] LABS: ALANINE AMINOTRANSFERASE 17 U/L (12-78); ALBUMIN 3.6 G/DL (3.4-5.0); ALBUMIN/GLOBULIN RATIO 1.3 (1.1-1.5); ALKALINE PHOSPHATASE 55 IU/L (46-116); ANION GAP 8 (8-16); ASPARTATE AMINO TRANSFERASE 13 U/L (10-37); BILIRUBIN,TOTAL 0.7 MG/DL (0.1-1.0); BLOOD UREA NITROGEN 13 MG/DL (7-18); BUN/CREATININE RATIO 19.4 (10.0-20.0); CALCIUM 8.7 MG/DL (8.5-10.1); CHLORIDE 106 MMOL/L (99-107); CREATININE 0.67 MG/DL (0.60-1.10); GLUCOSE 109 MG/DL (70-104); POTASSIUM 3.7 MMOL/L (3.5-5.1); SODIUM 138 MMOL/L (135-145); TOTAL CARBON DIOXIDE 24.5 MMOL/L (24-32); TOTAL PROTEIN 6.3 G/DL (6.4-8.2); eCRCL 119 ML/MIN; eGFR > 90 ML/MIN
[2023-03-07] MEDS ORDERED: iohexol 350MG/ML 100ml bottle IV ONE (13:03)
[2023-03-07 13:13] LABS: FREE T4 (FREE THYROXINE) 1.22 NG/DL (0.73-1.40); SALICYLATE 1.4 MG/DL (4.0-20.0)
[2023-03-07 13:19] LABS: ACETAMINOPHEN < 2.0 UG/ML (10-30); ETHANOL < 10 MG/DL (<10)
[2023-03-07 15:00] LABS: URINE AMPHETAMINE SCREEN NEGATIVE (Neg); URINE BARBITUATE SCREEN NEGATIVE (Neg); URINE BENZODIAZEPINES SCREEN NEGATIVE (Neg); URINE CANNABINOID SCREEN NEGATIVE (Neg); URINE COCAINE SCREEN NEGATIVE (Neg); URINE METHADONE SCREEN NEGATIVE (Neg); URINE OPIATE SCREEN NEGATIVE (Neg); URINE PHENCYCLIDINE SCREEN NEGATIVE (Neg)
[2023-03-07 15:13] LABS: BILIRUBIN,URINE NEGATIVE (Neg); CLARITY,URINE SLIGHTLY CLOUDY (Clear); COLOR,URINE YELLOW (Yellow); GLUCOSE, URINE NEGATIVE (Neg); KETONES,URINE 15 mg/dl (Neg); LEUKOCYTE ESTERASE ,URINE NEGATIVE (Neg); NITRITES, URINE NEGATIVE (Neg); OCCULT BLOOD,URINE SMALL (Neg); PH,URINE 5.5 (4.8-8.0); PROTEIN,URINE NEGATIVE (Neg)
[2023-03-07 15:14] LABS: UA COLLECTION TYPE STRAIGHT CATH
[2023-03-07 15:32] LABS: WBC,URINE 0-4 /HPF (0-4)
[2023-03-07 15:33] LABS: BACTERIA,URINE FEW /HPF (Neg); MUCUS STRANDS MODERATE /LPF (Neg); SQUAMOUS EPITHELIAL CELL,UR FEW /LPF (FEW)
[2023-03-07 16:33] LABS: MAGNESIUM 2.2 MG/DL (1.5-2.4); PHOSPHORUS 3.5 MG/DL (2.3-4.5)
[2023-03-07] MEDS ORDERED: atorvastatin 20mg tablet PO SCH (16:40)
--- NOTE | 2023-03-07 17:22 | NUR ---
RN UNABLE TO COMPLETE MRI FORM AT THIS TIME. PT IS HAVING ECHO. MRI NOTIFIED.
--- NOTE | 2023-03-07 17:59 | NUR ---
RN INQ WITH PT IF HE IS TAKING MEDS AND THE NAMES FOR MRI SCREENING FORM AND PT STATED THAT HE IS TAKING MEDICATION BUT DOES NOT REMEMBER THE NAMES OF THE MEDS. RN NOTIFIED MRI AND THEY STATED THAT IS NOT A PROBLEM. PT IS SLOW TO RESPOND. RN ATTEMPTING TO COMPLETE MRI FORM NOW.
--- NOTE | 2023-03-07 18:08 | NUR ---
RN COMPLETED MRI FORM, FAXED IT TO MRI, AND NOTIFIED THEM.
--- NOTE | 2023-03-07 18:26 | NUR ---
assumed care from summer, pt at MRI.
--- NOTE | 2023-03-07 18:29 | NUR ---
PT TAKEN TO MRI.
--- NOTE | 2023-03-07 18:53 | NUR ---
pt back to room from MRI.
--- NOTE | 2023-03-07 18:57 | NUR ---
ATTEMPTED TO COMPLETE MED REC. PT STATES DOES NOT KNOW WHAT MEDICATIONS HE TAKES
[2023-03-07] MEDS ORDERED: RISP125S SQ (19:26)
--- NOTE | 2023-03-07 20:59 | NUR ---
dr arndt at bedside.
[2023-03-07] MEDS ORDERED: temazepam 15mg capsule PO PRN (21:00)
[2023-03-07] MEDS ORDERED: morphine 2 MG/ML inj. syringe IV PRN (21:30)
[2023-03-07] MEDS ORDERED: diphenhydrAMINE 25mg capsule PO PRN (21:30)
[2023-03-07] MEDS ORDERED: bisacodyl 10mg suppository rectal RC PRN (21:30)
[2023-03-07] MEDS ORDERED: diphenhydrAMINE 50 mg/ml inj IV PRN (21:30)
[2023-03-07] MEDS ORDERED: acetaminophen 325mg tablet PO PRN ×2 (21:30)
[2023-03-07] MEDS ORDERED: mag hydrox/Alum hydrox/simeth 30ml oral suspension PO PRN (21:30)
[2023-03-07] MEDS ORDERED: ondansetron/PF 4mg/2ml inj IV PRN (21:30)
[2023-03-07] MEDS ORDERED: ondansetron 4mg rapidly disintigrating tab PO PRN (21:30)
[2023-03-07] MEDS: normal saline 1000ml 1,000 ML IV SCH (21:44)
[2023-03-07 21:59] LABS: HEMOGLOBIN A1C 5.5 % (4.5-6.2)
[2023-03-07 22:07] LABS: PRO BRAIN NATRIURETIC PEPTIDE 47 PG/ML (0-125)
[2023-03-07 22:07] LABS: APTT 25 SECONDS (22-32); PROTHROMBIN TIME 10.6 SECONDS (9.0-12.0)
[2023-03-08] MEDS: HYDROcodone/acetaminophen 5mg/325mg tablet PO PRN ×2 (01:12→22:19)
[2023-03-08 04:58] LABS: BASOPHILS % (AUTO) 0.5 % (0-1); EOSINOPHILS # (AUTO) 0.2 X10'3 (0-0.9); EOSINOPHILS % (AUTO) 3.8 % (0-6); HEMATOCRIT 38.5 % (42.0-52.0); HEMOGLOBIN 13.1 g/dl (14.0-17.9); LYMPHOCYTES # (AUTO) 2.1 X10'3 (1.1-4.8); LYMPHOCYTES % (AUTO) 37.7 % (21-51); MEAN CORPUSCULAR HEMOGLOBIN 30.8 PG (27.0-31.0); MEAN CORPUSCULAR HGB CONC 34.1 g/dL (33.0-36.5); MEAN CORPUSCULAR VOLUME 90.3 FL (78-98); MONOCYTES # (AUTO) 0.5 X10'3 (0-0.9); MONOCYTES % (AUTO) 8.5 % (2-12); NEUTROPHILS # (AUTO) 2.8 X10'3 (1.8-7.7); NEUTROPHILS % (AUTO) 49.5 % (42-75); PLATELET COUNT 149 X10'3 (140-440); RED BLOOD COUNT 4.26 X10'6 (4.70-6.10); RED CELL DISTRIBUTION WIDTH 13.6 % (11.5-14.5); WHITE BLOOD COUNT 5.7 X10'3 (4.5-11.0)
[2023-03-08 05:12] LABS: ALANINE AMINOTRANSFERASE 15 U/L (12-78); ALBUMIN 3.2 G/DL (3.4-5.0); ALBUMIN/GLOBULIN RATIO 1.3 (1.1-1.5); ALKALINE PHOSPHATASE 49 IU/L (46-116); ANION GAP 7 (8-16); ASPARTATE AMINO TRANSFERASE 12 U/L (10-37); BILIRUBIN,TOTAL 0.5 MG/DL (0.1-1.0); BLOOD UREA NITROGEN 16 MG/DL (7-18); BUN/CREATININE RATIO 23.5 (10.0-20.0); CALCIUM 8.4 MG/DL (8.5-10.1); CHLORIDE 108 MMOL/L (99-107); CHOL/HDL RATIO 3.9 (0.00-4.99); CHOLESTEROL 126 MG/DL (0-200); CREATININE 0.68 MG/DL (0.60-1.10); GLUCOSE 83 MG/DL (70-104); HDL CHOLESTEROL 32 MG/DL (35-60); LDL CHOLESTEROL 69 MG/DL (50-100); POTASSIUM 3.5 MMOL/L (3.5-5.1); SODIUM 141 MMOL/L (135-145); TOTAL CARBON DIOXIDE 25.7 MMOL/L (24-32); TOTAL PROTEIN 5.6 G/DL (6.4-8.2); TRIGLYCERIDES 91 MG/DL (20-135); eCRCL 117 ML/MIN; eGFR > 90 ML/MIN
[2023-03-08] MEDS: normal saline 1000ml 1,000 ML IV SCH ×2 (07:30→17:51)
[2023-03-08] MEDS: pantoprazole 40mg Tablet.DR PO SCH (08:35)
[2023-03-08] MEDS: docusate sod 100mg capsule PO SCH ×2 (08:35→22:19)
[2023-03-08] MEDS: heparin, porcine 5000 units/ml vial SQ SCH ×2 (08:36→22:20)
[2023-03-08 10:00] VITALS: BP 93/57; PULSE 90; RESP 16; TEMP 97.4; O2SAT 97
[2023-03-08] MEDS ORDERED: LAMO100T PO (11:46)
[2023-03-08] MEDS ORDERED: SERT-432 PO (11:46)
[2023-03-08] MEDS ORDERED: BENZ2TAB74 PO (11:46)
[2023-03-08] MEDS ORDERED: MIDO5TAB4 PO (11:46)
[2023-03-08] MEDS ORDERED: DUTA0.5C36 PO (11:46)
[2023-03-08 18:00] VITALS: BP 118/75; PULSE 70; RESP 16; TEMP 97.7; O2SAT 97
--- NOTE | 2023-03-08 18:44 | NUR ---
Problems reprioritized. Patient report given, questions answered & plan of care reviewed with
--- NOTE | 2023-03-08 18:49 | NUR ---
Patient in room [facility]THO 4020. I have received report from RUPALI Chase and had the opportunity to ask questions and assume patient care. Addendum: 03/08/23 at 1850 by Kristie Hardy RN Amended: Links added.
[2023-03-08 20:45] VITALS: RESP 18; O2SAT 98
[2023-03-08 22:00] VITALS: BP 98/66; PULSE 73; RESP 17; TEMP 98.3; O2SAT 98
[2023-03-09] VITALS (8 sets, daily range): BP systolic 100–136; BP diastolic 64–86; PULSE 68–79; RESP 13–18; TEMP 96.9–98.4; O2SAT 96–98
[2023-03-09] MEDS: normal saline 1000ml 1,000 ML IV SCH ×3 (02:58→17:55)
--- NOTE | 2023-03-09 06:30 | NUR ---
Problems reprioritized. Patient report given, questions answered & plan of care reviewed with RUPALI Ochoa. Addendum: 03/09/23 at 0659 by Kristie Hardy RN Amended: Links added.
--- NOTE | 2023-03-09 06:45 | NUR ---
Patient in room [facility]THO 4020. I have received report from RUPALI Flowers and had the opportunity to ask questions and assume patient care.
[2023-03-09 08:16] LABS: BASOPHILS % (AUTO) 0.5 % (0-1); EOSINOPHILS # (AUTO) 0.1 X10'3 (0-0.9); EOSINOPHILS % (AUTO) 3.4 % (0-6); HEMATOCRIT 36.8 % (42.0-52.0); HEMOGLOBIN 12.7 g/dl (14.0-17.9); LYMPHOCYTES # (AUTO) 1.5 X10'3 (1.1-4.8); MEAN CORPUSCULAR HGB CONC 34.6 g/dL (33.0-36.5); MEAN CORPUSCULAR VOLUME 89.6 FL (78-98); MEAN PLATELET VOLUME 8.7 FL (7.4-10.4); MONOCYTES # (AUTO) 0.3 X10'3 (0-0.9); MONOCYTES % (AUTO) 7.8 % (2-12); NEUTROPHILS # (AUTO) 1.8 X10'3 (1.8-7.7); NEUTROPHILS % (AUTO) 49.3 % (42-75); PLATELET COUNT 147 X10'3 (140-440); RED BLOOD COUNT 4.11 X10'6 (4.70-6.10); RED CELL DISTRIBUTION WIDTH 13.4 % (11.5-14.5); WHITE BLOOD COUNT 3.7 X10'3 (4.5-11.0)
[2023-03-09 08:59] LABS: ALANINE AMINOTRANSFERASE 12 U/L (12-78); ALBUMIN 3.1 G/DL (3.4-5.0); ALBUMIN/GLOBULIN RATIO 1.3 (1.1-1.5); ALKALINE PHOSPHATASE 51 IU/L (46-116); ANION GAP 11 (8-16); ASPARTATE AMINO TRANSFERASE 12 U/L (10-37); BILIRUBIN,TOTAL 0.5 MG/DL (0.1-1.0); BLOOD UREA NITROGEN 14 MG/DL (7-18); BUN/CREATININE RATIO 21.5 (10.0-20.0); CALCIUM 8.3 MG/DL (8.5-10.1); CHLORIDE 107 MMOL/L (99-107); CREATININE 0.65 MG/DL (0.60-1.10); GLUCOSE 88 MG/DL (70-104); POTASSIUM 3.7 MMOL/L (3.5-5.1); SODIUM 141 MMOL/L (135-145); TOTAL CARBON DIOXIDE 23.5 MMOL/L (24-32); TOTAL PROTEIN 5.5 G/DL (6.4-8.2); eCRCL 122 ML/MIN; eGFR > 90 ML/MIN
[2023-03-09] MEDS: docusate sod 100mg capsule PO SCH ×2 (11:03→20:49)
[2023-03-09] MEDS: pantoprazole 40mg Tablet.DR PO SCH (11:03)
[2023-03-09] MEDS: heparin, porcine 5000 units/ml vial SQ SCH ×2 (11:04→20:51)
--- NOTE | 2023-03-09 19:10 | NUR ---
Problems reprioritized. Patient report given, questions answered & plan of care reviewed with RUPALI Strickland.
[2023-03-10] VITALS (7 sets, daily range): BP systolic 98–116; BP diastolic 53–76; PULSE 67–74; RESP 16–18; TEMP 97.7–98.6; O2SAT 97–98
[2023-03-10] MEDS: normal saline 1000ml 1,000 ML IV SCH ×3 (03:27→23:39)
[2023-03-10] MEDS: HYDROcodone/acetaminophen 5mg/325mg tablet PO PRN ×2 (05:15→20:13)
[2023-03-10 06:36] LABS: BASOPHILS % (AUTO) 0.4 % (0-1); EOSINOPHILS # (AUTO) 0.2 X10'3 (0-0.9); EOSINOPHILS % (AUTO) 3.6 % (0-6); HEMATOCRIT 35.7 % (42.0-52.0); HEMOGLOBIN 12.3 g/dl (14.0-17.9); LYMPHOCYTES # (AUTO) 1.7 X10'3 (1.1-4.8); LYMPHOCYTES % (AUTO) 36.5 % (21-51); MEAN CORPUSCULAR HGB CONC 34.5 g/dL (33.0-36.5); MEAN PLATELET VOLUME 8.6 FL (7.4-10.4); MONOCYTES # (AUTO) 0.4 X10'3 (0-0.9); MONOCYTES % (AUTO) 7.9 % (2-12); NEUTROPHILS # (AUTO) 2.4 X10'3 (1.8-7.7); NEUTROPHILS % (AUTO) 51.6 % (42-75); PLATELET COUNT 152 X10'3 (140-440); RED BLOOD COUNT 3.97 X10'6 (4.70-6.10); RED CELL DISTRIBUTION WIDTH 13.1 % (11.5-14.5); WHITE BLOOD COUNT 4.7 X10'3 (4.5-11.0)
--- NOTE | 2023-03-10 06:37 | NUR ---
Patient in room ORTHO 4020. I have received report from Em ZAPIEN and had the opportunity to ask questions and assume patient care.
[2023-03-10 06:52] LABS: ALANINE AMINOTRANSFERASE 15 U/L (12-78); ALBUMIN/GLOBULIN RATIO 1.3 (1.1-1.5); ALKALINE PHOSPHATASE 44 IU/L (46-116); ANION GAP 7 (8-16); ASPARTATE AMINO TRANSFERASE 10 U/L (10-37); BILIRUBIN,TOTAL 0.4 MG/DL (0.1-1.0); BLOOD UREA NITROGEN 14 MG/DL (7-18); BUN/CREATININE RATIO 20.9 (10.0-20.0); CALCIUM 8.6 MG/DL (8.5-10.1); CHLORIDE 107 MMOL/L (99-107); CREATININE 0.67 MG/DL (0.60-1.10); GLUCOSE 102 MG/DL (70-104); POTASSIUM 3.6 MMOL/L (3.5-5.1); SODIUM 139 MMOL/L (135-145); TOTAL CARBON DIOXIDE 25.4 MMOL/L (24-32); TOTAL PROTEIN 5.4 G/DL (6.4-8.2); eCRCL 119 ML/MIN; eGFR > 90 ML/MIN
[2023-03-10] MEDS: docusate sod 100mg capsule PO SCH ×2 (08:40→20:13)
[2023-03-10] MEDS: pantoprazole 40mg Tablet.DR PO SCH (08:40)
[2023-03-10] MEDS: heparin, porcine 5000 units/ml vial SQ SCH ×2 (08:41→20:14)
[2023-03-10] MEDS: lamoTRIgine 100mg tablet PO SCH (15:29)
[2023-03-10] MEDS: sertraline 25mg tablet PO SCH (15:30)
[2023-03-10] MEDS: dutasteride 0.5 MG capsule PO SCH (15:30)
--- NOTE | 2023-03-10 18:17 | NUR ---
Problems reprioritized. Patient report given, questions answered & plan of care reviewed with Prudence RN.
--- NOTE | 2023-03-10 19:26 | NUR ---
Patient in room [facility]THO 4020. I have received report from DIMPLE ZAPIEN and had the opportunity to ask questions and assume patient care.
[2023-03-10] MEDS: midodrine 5mg tablet PO SCH (20:13)
[2023-03-10] MEDS: magnesium hydroxide 30ml (MOM) UD suspension PO PRN (20:13)
[2023-03-10] MEDS: benztropine 1mg tablet PO SCH (20:13)
[2023-03-11 06:11] LABS: ALANINE AMINOTRANSFERASE 14 U/L (12-78); ALBUMIN 2.9 G/DL (3.4-5.0); ALBUMIN/GLOBULIN RATIO 1.3 (1.1-1.5); ALKALINE PHOSPHATASE 43 IU/L (46-116); ANION GAP 3 (8-16); ASPARTATE AMINO TRANSFERASE 13 U/L (10-37); BILIRUBIN,TOTAL 0.3 MG/DL (0.1-1.0); BLOOD UREA NITROGEN 17 MG/DL (7-18); BUN/CREATININE RATIO 27.9 (10.0-20.0); CALCIUM 8.4 MG/DL (8.5-10.1); CHLORIDE 108 MMOL/L (99-107); CREATININE 0.61 MG/DL (0.60-1.10); GLUCOSE 98 MG/DL (70-104); POTASSIUM 3.8 MMOL/L (3.5-5.1); SODIUM 140 MMOL/L (135-145); TOTAL CARBON DIOXIDE 28.9 MMOL/L (24-32); TOTAL PROTEIN 5.2 G/DL (6.4-8.2); eCRCL 130 ML/MIN; eGFR > 90 ML/MIN
[2023-03-11 06:18] LABS: HEMOGLOBIN 12.5 g/dl (14.0-17.9); MEAN CORPUSCULAR HEMOGLOBIN 30.9 PG (27.0-31.0); RED BLOOD COUNT 4.06 X10'6 (4.70-6.10); WHITE BLOOD COUNT 4.7 X10'3 (4.5-11.0)
[2023-03-11 06:21] LABS: BASOPHILS % (AUTO) 0.4 % (0-1); EOSINOPHILS # (AUTO) 0.2 X10'3 (0-0.9); EOSINOPHILS % (AUTO) 3.6 % (0-6); LYMPHOCYTES # (AUTO) 1.9 X10'3 (1.1-4.8); LYMPHOCYTES % (AUTO) 40.1 % (21-51); MEAN CORPUSCULAR HGB CONC 34.8 g/dL (33.0-36.5); MEAN CORPUSCULAR VOLUME 88.7 FL (78-98); MEAN PLATELET VOLUME 8.7 FL (7.4-10.4); MONOCYTES # (AUTO) 0.3 X10'3 (0-0.9); MONOCYTES % (AUTO) 6.4 % (2-12); NEUTROPHILS # (AUTO) 2.3 X10'3 (1.8-7.7); NEUTROPHILS % (AUTO) 49.5 % (42-75); PLATELET COUNT 149 X10'3 (140-440); RED CELL DISTRIBUTION WIDTH 13.3 % (11.5-14.5)
--- NOTE | 2023-03-11 06:23 | NUR ---
Problems reprioritized. Patient report given, questions answered & plan of care reviewed with DIMPLE RN.
[2023-03-11 06:50] VITALS: BP 102/66; PULSE 66; RESP 14; TEMP 98.2; O2SAT 95
--- NOTE | 2023-03-11 07:16 | NUR ---
Patient in room ORTHO 4020. I have received report from Leisa ZAPIEN and had the opportunity to ask questions and assume patient care.
[2023-03-11] MEDS: docusate sod 100mg capsule PO SCH ×2 (07:53→20:09)
[2023-03-11] MEDS: magnesium hydroxide 30ml (MOM) UD suspension PO PRN (07:53)
[2023-03-11] MEDS: pantoprazole 40mg Tablet.DR PO SCH (07:54)
[2023-03-11] MEDS: lamoTRIgine 100mg tablet PO SCH (07:54)
[2023-03-11] MEDS: midodrine 5mg tablet PO SCH ×3 (07:54→20:09)
[2023-03-11] MEDS: benztropine 1mg tablet PO SCH ×2 (07:54→20:08)
[2023-03-11] MEDS: heparin, porcine 5000 units/ml vial SQ SCH ×2 (07:57→20:10)
[2023-03-11 08:00] VITALS: RESP 18
[2023-03-11] MEDS: sertraline 25mg tablet PO SCH (08:23)
[2023-03-11] MEDS: dutasteride 0.5 MG capsule PO SCH (08:48)
[2023-03-11 10:00] VITALS: BP 98/56; PULSE 68; RESP 14; TEMP 97.7; O2SAT 96
--- NOTE | 2023-03-11 13:45 | NUR ---
Initial: Pt admit for tardive dyskinesia. Pt initially on a heart healthy diet which was changed to mechanical soft 03/08 and pt overall eating well, documented with average 82% PO intake since 03/09 which is up from average 42% PO intake on 03/08 when pt was not on a texture modified diet. Current average PO intake meets 99% estimated energy needs and 100% estimated protein needs. Per EMR LBM 03/07 though pt denies GI symptoms. Pt receiving routine Colace BID and received PRN MoM 03/10 and 03/11. D/w dietary to send power pudding and prune juice with next meal to further assist with a BM. Will continue to follow and monitor need for additional nutrition intervention. Recommendations: 1) Continue mechanical soft diet 2) Routine and PRN bowel care 3) Scaled weight this admit; subsequent weekly scaled weights Addendum: 03/11/23 at [address] Amended: Links added.
[2023-03-11] MEDS: normal saline 1000ml 1,000 ML IV SCH (15:30)
[2023-03-11 18:30] VITALS: BP 91/58; PULSE 67; RESP 16; TEMP 97.7; O2SAT 98
--- NOTE | 2023-03-11 18:44 | NUR ---
Problems reprioritized. Patient report given, questions answered & plan of care reviewed with Yvette ZAPIEN.
[2023-03-11 20:00] VITALS: RESP 17; O2SAT 98
[2023-03-11 22:00] VITALS: BP 91/61; PULSE 69; RESP 16; TEMP 97.4; O2SAT 97
--- NOTE | 2023-03-11 22:00 | NUR ---
GAVE REPORT TO RUPALI GLASS
[2023-03-12] MEDS: normal saline 1000ml 1,000 ML IV SCH ×3 (01:30→18:40)
[2023-03-12 06:00] VITALS: BP 97/65; PULSE 64; RESP 16; TEMP 97.8; O2SAT 98
[2023-03-12 06:13] LABS: BASOPHILS % (AUTO) 0.3 % (0-1); EOSINOPHILS # (AUTO) 0.2 X10'3 (0-0.9); EOSINOPHILS % (AUTO) 3.1 % (0-6); HEMATOCRIT 34.4 % (42.0-52.0); HEMOGLOBIN 11.9 g/dl (14.0-17.9); LYMPHOCYTES # (AUTO) 1.8 X10'3 (1.1-4.8); MEAN CORPUSCULAR HEMOGLOBIN 30.9 PG (27.0-31.0); MEAN CORPUSCULAR HGB CONC 34.6 g/dL (33.0-36.5); MEAN CORPUSCULAR VOLUME 89.4 FL (78-98); MEAN PLATELET VOLUME 8.2 FL (7.4-10.4); MONOCYTES # (AUTO) 0.4 X10'3 (0-0.9); MONOCYTES % (AUTO) 6.5 % (2-12); NEUTROPHILS # (AUTO) 3.3 X10'3 (1.8-7.7); NEUTROPHILS % (AUTO) 58.1 % (42-75); PLATELET COUNT 141 X10'3 (140-440); RED BLOOD COUNT 3.85 X10'6 (4.70-6.10); RED CELL DISTRIBUTION WIDTH 13.4 % (11.5-14.5); WHITE BLOOD COUNT 5.7 X10'3 (4.5-11.0)
[2023-03-12 06:28] LABS: ALANINE AMINOTRANSFERASE 16 U/L (12-78); ALBUMIN/GLOBULIN RATIO 1.4 (1.1-1.5); ALKALINE PHOSPHATASE 38 IU/L (46-116); ANION GAP 4 (8-16); ASPARTATE AMINO TRANSFERASE 12 U/L (10-37); BILIRUBIN,TOTAL 0.3 MG/DL (0.1-1.0); BLOOD UREA NITROGEN 14 MG/DL (7-18); BUN/CREATININE RATIO 20.6 (10.0-20.0); CHLORIDE 107 MMOL/L (99-107); CREATININE 0.68 MG/DL (0.60-1.10); GLUCOSE 92 MG/DL (70-104); POTASSIUM 3.6 MMOL/L (3.5-5.1); SODIUM 139 MMOL/L (135-145); TOTAL CARBON DIOXIDE 28.1 MMOL/L (24-32); TOTAL PROTEIN 5.2 G/DL (6.4-8.2); eCRCL 117 ML/MIN; eGFR > 90 ML/MIN
--- NOTE | 2023-03-12 06:30 | NUR ---
Problems reprioritized. Patient report given, questions answered & plan of care reviewed with
--- NOTE | 2023-03-12 06:44 | NUR ---
Patient in room ORTHO 4020. I have received report from Facundo and had the opportunity to ask questions and assume patient care.
[2023-03-12 07:37] VITALS: RESP 16; O2SAT 98
[2023-03-12] MEDS: dutasteride 0.5 MG capsule PO SCH (07:37)
[2023-03-12] MEDS: pantoprazole 40mg Tablet.DR PO SCH (07:37)
[2023-03-12] MEDS: benztropine 1mg tablet PO SCH ×2 (07:37→19:51)
[2023-03-12] MEDS: docusate sod 100mg capsule PO SCH ×2 (07:38→19:51)
[2023-03-12] MEDS: heparin, porcine 5000 units/ml vial SQ SCH ×2 (07:39→19:51)
[2023-03-12] MEDS: lamoTRIgine 100mg tablet PO SCH (07:39)
[2023-03-12] MEDS: midodrine 5mg tablet PO SCH ×3 (07:39→22:12)
[2023-03-12] MEDS: sertraline 25mg tablet PO SCH (07:39)
[2023-03-12 10:00] VITALS: BP 98/64; PULSE 66; RESP 16; TEMP 98.3; O2SAT 95
[2023-03-12 18:00] VITALS: BP 103/68; PULSE 57; RESP 16; TEMP 98.1; O2SAT 96
--- NOTE | 2023-03-12 18:05 | NUR ---
Problems reprioritized. Patient report given, questions answered & plan of care reviewed with
[2023-03-12 18:50] VITALS: RESP 16; O2SAT 96
[2023-03-12] MEDS: HYDROcodone/acetaminophen 5mg/325mg tablet PO PRN (19:02)
[2023-03-12 22:00] VITALS: BP 95/59; PULSE 59; RESP 16; TEMP 98.4; O2SAT 97
[2023-03-13] VITALS (7 sets, daily range): BP systolic 78–106; BP diastolic 47–68; PULSE 54–70; RESP 14–18; TEMP 97.4–98; O2SAT 96–98
--- NOTE | 2023-03-13 07:08 | NUR ---
Problems reprioritized. Patient report given, questions answered & plan of care reviewed with ESTELITA. Addendum: 03/13/23 at 0708 by Nathan Ryan RN Amended: Links added.
[2023-03-13] MEDS: normal saline 1000ml 1,000 ML IV SCH ×3 (07:30→22:15)
[2023-03-13] MEDS: docusate sod 100mg capsule PO SCH ×2 (07:55→21:11)
[2023-03-13] MEDS: pantoprazole 40mg Tablet.DR PO SCH (07:55)
[2023-03-13] MEDS: benztropine 1mg tablet PO SCH ×2 (07:55→21:11)
[2023-03-13] MEDS: lamoTRIgine 100mg tablet PO SCH (07:55)
[2023-03-13] MEDS: dutasteride 0.5 MG capsule PO SCH (07:56)
[2023-03-13] MEDS: midodrine 5mg tablet PO SCH ×3 (07:56→21:11)
[2023-03-13] MEDS: heparin, porcine 5000 units/ml vial SQ SCH ×2 (07:58→21:11)
[2023-03-13] MEDS: sertraline 25mg tablet PO SCH (08:01)
--- NOTE | 2023-03-13 16:10 | NUR ---
I have reviewed and agree with interventions, assessments, and documentation by Olesya Donald LVN.
--- NOTE | 2023-03-13 17:31 | NUR ---
Patient admitted to ortho floor, oriented to call light system, fall precautions. Pt appropriate at time of admission, personal belongings brought with, at bedside. Addendum: 03/13/23 at 1734 by Olesya Leon - MERCERIZER MERCERIZER above note does not apply to this patient. Charted in error.
--- NOTE | 2023-03-13 18:20 | NUR ---
Patient in room ORTHO 4020. I have received report from COURT Dacosta and had the opportunity to ask questions and assume patient care.
[2023-03-13] MEDS: HYDROcodone/acetaminophen 5mg/325mg tablet PO PRN (22:15)
[2023-03-14 06:00] VITALS: BP 107/68; PULSE 61; RESP 17; TEMP 97.5; O2SAT 97
--- NOTE | 2023-03-14 06:44 | NUR ---
Problems reprioritized. Patient report given, questions answered & plan of care reviewed with COURT Dacosta.
[2023-03-14] MEDS: dutasteride 0.5 MG capsule PO SCH (07:28)
[2023-03-14] MEDS: pantoprazole 40mg Tablet.DR PO SCH (07:28)
[2023-03-14] MEDS: heparin, porcine 5000 units/ml vial SQ SCH ×2 (07:29→21:36)
[2023-03-14] MEDS: sertraline 25mg tablet PO SCH (07:29)
[2023-03-14] MEDS: midodrine 5mg tablet PO SCH ×3 (07:29→21:35)
[2023-03-14] MEDS: docusate sod 100mg capsule PO SCH ×2 (07:29→21:36)
[2023-03-14] MEDS: lamoTRIgine 100mg tablet PO SCH (07:29)
[2023-03-14] MEDS: benztropine 1mg tablet PO SCH ×2 (07:29→21:36)
[2023-03-14 08:00] VITALS: RESP 17; O2SAT 97
[2023-03-14 10:00] VITALS: BP 98/54; PULSE 83; RESP 20; TEMP 98.4; O2SAT 95
[2023-03-14] MEDS: normal saline 1000ml 1,000 ML IV SCH ×2 (14:59→19:34)
[2023-03-14 18:00] VITALS: BP 101/68; PULSE 58; RESP 16; TEMP 98.4; O2SAT 97
--- NOTE | 2023-03-14 18:00 | NUR ---
I have reviewed and agree with interventions, assessments,and documentation by Olesya Donald LVN.
--- NOTE | 2023-03-14 18:30 | NUR ---
Patient in room ORTHO 4016. I have received report from Olesya YUN and had the opportunity to ask questions and assume patient care. Addendum: 03/15/23 at 0626 by Duane Pillai LVN correction: pt report given to Mireya YUN
[2023-03-14] MEDS: HYDROcodone/acetaminophen 5mg/325mg tablet PO PRN (19:40)
[2023-03-14 22:00] VITALS: BP 109/71; PULSE 64; RESP 14; TEMP 97.5; O2SAT 97
[2023-03-15] MEDS: normal saline 1000ml 1,000 ML IV SCH (05:01)
[2023-03-15 06:00] VITALS: BP 119/85; PULSE 70; RESP 16; TEMP 97.9; O2SAT 98
--- NOTE | 2023-03-15 06:15 | NUR ---
Patient in room ORTHO 4017. I have received report from COURT Zepeda and had the opportunity to ask questions and assume patient care. In no distress at this time.
--- NOTE | 2023-03-15 06:37 | NUR ---
I have received report from COURT Zepeda and had the opportunity to ask questions and assume patient care. No distress at this time.
[2023-03-15] MEDS ORDERED: midodrine 5mg tablet PO SCH (08:00)
[2023-03-15] MEDS ORDERED: fludrocortisone acetate 0.1mg tablet PO SCH (08:30)
[2023-03-15] MEDS: benztropine 1mg tablet PO SCH (08:42)
[2023-03-15] MEDS: pantoprazole 40mg Tablet.DR PO SCH (08:43)
[2023-03-15] MEDS: lamoTRIgine 100mg tablet PO SCH (08:43)
[2023-03-15] MEDS: docusate sod 100mg capsule PO SCH (08:44)
[2023-03-15] MEDS: sertraline 25mg tablet PO SCH (08:45)
[2023-03-15] MEDS: dutasteride 0.5 MG capsule PO SCH (08:45)
[2023-03-15] MEDS: heparin, porcine 5000 units/ml vial SQ SCH (08:47)
[2023-03-15 10:00] VITALS: BP 98/50; PULSE 67; RESP 16; TEMP 98.8; O2SAT 98
--- NOTE | 2023-03-15 12:38 | NUR ---
Reassessment: PO intake continues to improve, documented with 100% PO intake of all meals since lunch 03/11 meeting estimated nutrient needs. LBM 03/13 per EMR. Pt continues receiving routine bowel care and documented to have received PRN MoM and Dulcolax suppository 03/11. No nutrition intervention implemented at this time. Will continue to follow and make recommendations as appropriate. Recommendations: 1) Continue mechanical soft diet 2) Routine and PRN bowel care 3) Scaled weight this admit; subsequent weekly scaled weights Addendum: 03/15/23 at [address] Amended: Links added.
--- NOTE | 2023-03-15 14:07 | NUR ---
Case management was called to discuss cane instead of walker for pt. Pt states that he does not have enough room at his house for a walker, but case management stated that "they do not have canes, only walkers". PT stated that he walked [address] Chairez said he was okay to go home. Case management stated that I could call PT to ask if they could give him a cane since they do not carry them. I will contact PT. Pt is stable at this time and wants to go home and not rehab.
[2023-03-15] MEDS ORDERED: MIDO10TA PO (14:11)
[2023-03-15] MEDS ORDERED: FLO0.1T PO (14:11)
--- NOTE | 2023-03-15 16:24 | NUR ---
Called Nursing Watch Technician and got the okay to call a cab on hospital pay for post discharge transportation.
--- NOTE | 2023-03-15 16:50 | NUR ---
Patient alert and oriented, no distress at this time. Patient had belongings w/ him that where assessed on admission. Paperwork signed, d/c instructions went over w/ pt, understood. [facility] picked up pt, on hospital pay, wheeled down to main entrance. Patients IV d/c'd, cannula intact.
== END 2023-03-15 17:00 | disposition home or self-care (01) | DRG 861 ==
LOC: ER 11:12 → ED HOLD 21:34 → ORTHO 4S 03-08 07:30
PROVIDERS: ADMIT Family Medicine; ATTEND Internal Medicine
PROC: B3251ZZ Computerized Tomography (CT Scan) of Bilateral Common Carotid Arteries using Low Osmolar Contrast (ICD-10-PCS; principal; 2023-03-07)
PROC: B32G1ZZ Computerized Tomography (CT Scan) of Bilateral Vertebral Arteries using Low Osmolar Contrast (ICD-10-PCS; 2023-03-07)
PROC: B32R1ZZ Computerized Tomography (CT Scan) of Intracranial Arteries using Low Osmolar Contrast (ICD-10-PCS; 2023-03-07)
PROC: B3281ZZ Computerized Tomography (CT Scan) of Bilateral Internal Carotid Arteries using Low Osmolar Contrast (ICD-10-PCS; 2023-03-07)
DX: R53.1 Weakness (principal); G93.41 Metabolic encephalopathy; I95.9 Hypotension, unspecified; F25.9 Schizoaffective disorder, unspecified; G24.01 Drug induced subacute dyskinesia; F31.9 Bipolar disorder, unspecified; Z60.2 Problems related to living alone; N40.0 Benign prostatic hyperplasia without lower urinary tract symptoms; T43.595A Adverse effect of other antipsychotics and neuroleptics, initial encounter; R47.1 Dysarthria and anarthria; Z86.73 Personal history of transient ischemic attack (TIA), and cerebral infarction without residual deficits; Z88.6 Allergy status to analgesic agent; Z56.0 Unemployment, unspecified; Z88.8 Allergy status to other drugs, medicaments and biological substances; Y92.89 Other specified places as the place of occurrence of the external cause; Z79.899 Other long term (current) drug therapy
CPT/HCPCS: 36415; 70450; 70496; 70498; 70551; 71045; 80053; 80061; 80305; 80320; 80329; 81001; 82948; 83036; 83605; 83735; 83880; 84100; 84439; 84443; 85025; 85610; 85730; 87040; 87081; 93005; 93306; 93880; 97110; 97116; 97162; 97530; 99285; C1758; G0378; J1644; J3490; J7030; Q9967

== ENCOUNTER 2023-03-21 12:58 | Emergency (ER) | payer MEDICAID ==
[~2023-03-21] VITALS: Ht 180.3 cm; Wt 77.3 kg
[~2023-03-21 12:58] MED LIST changes: -AVO0.5C PO; +BENZ2TAB74 PO; +DUTA0.5C36 PO; +FLO0.1T PO; -FLO0.4C PO; +LAMO100T PO; -LANO454C3 TP; +MIDO10TA PO; -MIDO5TAB4 PO; -NAPR-996 PO; -ONDA-103 PO; +SERT-432 PO
[2023-03-21 14:34] VITALS: TEMP 98.3
[2023-03-21 18:57] LABS: BASOPHILS % (AUTO) 0.5 % (0-1); EOSINOPHILS # (AUTO) 0.1 X10'3 (0-0.9); EOSINOPHILS % (AUTO) 1.7 % (0-6); HEMATOCRIT 41.3 % (42.0-52.0); HEMOGLOBIN 14.1 g/dl (14.0-17.9); LYMPHOCYTES # (AUTO) 1.6 X10'3 (1.1-4.8); MEAN CORPUSCULAR HEMOGLOBIN 30.8 PG (27.0-31.0); MEAN CORPUSCULAR HGB CONC 34.1 g/dL (33.0-36.5); MEAN CORPUSCULAR VOLUME 90.5 FL (78-98); MEAN PLATELET VOLUME 7.9 FL (7.4-10.4); MONOCYTES # (AUTO) 0.6 X10'3 (0-0.9); MONOCYTES % (AUTO) 8.8 % (2-12); PLATELET COUNT 227 X10'3 (140-440); RED BLOOD COUNT 4.57 X10'6 (4.70-6.10); RED CELL DISTRIBUTION WIDTH 13.8 % (11.5-14.5); WHITE BLOOD COUNT 6.3 X10'3 (4.5-11.0)
[2023-03-21 19:08] LABS: ALANINE AMINOTRANSFERASE 20 U/L (12-78); ALBUMIN 3.8 G/DL (3.4-5.0); ALBUMIN/GLOBULIN RATIO 1.3 (1.1-1.5); ALKALINE PHOSPHATASE 63 IU/L (46-116); ANION GAP 4 (8-16); ASPARTATE AMINO TRANSFERASE 10 U/L (10-37); BILIRUBIN,TOTAL 0.4 MG/DL (0.1-1.0); BLOOD UREA NITROGEN 10 MG/DL (7-18); BUN/CREATININE RATIO 11.6 (10.0-20.0); CHLORIDE 102 MMOL/L (99-107); CREATININE 0.86 MG/DL (0.60-1.10); GLUCOSE 115 MG/DL (70-104); POTASSIUM 3.8 MMOL/L (3.5-5.1); SODIUM 136 MMOL/L (135-145); TOTAL CARBON DIOXIDE 29.6 MMOL/L (24-32); TOTAL PROTEIN 6.7 G/DL (6.4-8.2); eCRCL 92 ML/MIN; eGFR 90 ML/MIN
[2023-03-21 21:18] VITALS: BP 117/75; PULSE 85; RESP 18; O2SAT 98
== END 2023-03-21 21:22 | disposition home or self-care (01) ==
LOC: ER 12:58
DX: Z76.5 Malingerer [conscious simulation] (principal); R53.1 Weakness; F31.9 Bipolar disorder, unspecified; Z60.2 Problems related to living alone; Z56.0 Unemployment, unspecified; Z86.73 Personal history of transient ischemic attack (TIA), and cerebral infarction without residual deficits; Z88.8 Allergy status to other drugs, medicaments and biological substances; Z88.6 Allergy status to analgesic agent; Z79.899 Other long term (current) drug therapy
CPT/HCPCS: 36415; 80053; 85025; 99283